=== PATIENT | female | born 1940 | race Caucasian/White ===

== ENCOUNTER 2023-08-08 14:17 | Inpatient (IN) | payer MEDICARE, SELFPAY ==
[2023-08-08] VITALS (9 sets, daily range): BP systolic 140–188; BP diastolic 83–106; PULSE 70–96; RESP 16–26; TEMP 36.5–37; O2SAT 94–97; BMI 21.2
--- NOTE | 2023-08-08 14:23 | ECG_ITS ---
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 Measurements Intervals [place] Rate: 70 P: 0 MS: 0 QRS: -74 QRSD: 167 T: 111 QT: 418 QTc: 452 Interpretive Statements ELECTRONIC VENTRICULAR PACEMAKER No previous ECG available for comparison Electronically Signed On 08-08-2023 15:50:36 CDT by Pedro Simpson M.D. [email or web address] infantsLetsVenturej.[email or web address].Atonarp/store/NU/[id number] f
--- NOTE | 2023-08-08 14:31 | XRR_ITS ---
PROCEDURE INFORMATION: Exam: XR Chest Exam date and time: 08/08/2023 2:48 PM Age: 82 years old Clinical indication: Angina pectoris; Patient HX: Chest pain radiating to lt arm; HX pacemaker 2017 TECHNIQUE: Imaging protocol: Radiologic exam of the chest. Views: 1 view. COMPARISON: No relevant prior studies available. FINDINGS: Tubes, catheters and devices: Dual lead cardiac pacemaker with left chest generator. Lungs: Bilateral lower lung atelectasis. Pleural spaces: [id number] right and suspected small left pleural effusions. No pneumothorax. Heart/Mediastinum: Widened cardiac silhouette with consolidative masslike opacity at the right medial lower lung zone obscuring the right heart border. Vasculature: Aortic arch atherosclerotic calcification. Bones/joints: Chronic fracture deformities of multiple bilateral ribs. Other findings: Splaying of the zee. XR/XR chest 1V portable [id number] IMPRESSION: 1. Widened cardiac silhouette with consolidative masslike opacity at the right medial lower lung zone obscuring the right heart border. Recommend contrast-enhanced chest CT. 2. Splaying of the zee may be on the basis of lymphadenopathy, mass, or left atrial enlargement. 3. [id number] right and suspected small left pleural effusions.
[2023-08-08] MEDS: aspirin 81 mg Chew Tablet 324 MG PO (14:35)
--- NOTE | 2023-08-08 14:37 | ED_ITS ---
HPI - Chest Pain 2 General: Chief Complaint: Chest Pain Stated Complaint: CHEST PAIN Time Seen by Provider: 08/08/23 14:19 Source: patient Mode of arrival: EMS History of Present Illness: 82-year-old female presents emergency ro om via EMS complaining of chest pain resolved after 2 sublingual nitro. Began around 7:00 this morning intermittently worsened after she went into the kitchen radiated into her left shoulder and arm down past her elbow some mild shortness of breath associated with it. She has a history of atrial fibrillation and congestive heart failure no recent medication changes no known history of coronary disease she does have a pacemaker. She is on Eliquis and metoprolol. No recent fever sweats or chills no persistent shortness of breath or productive cough no dysuria urgency or frequency she has chronic diarrhea related to her Crohn's her bowel pattern is generally unchanged. complaint: chest pain Onset (ago): hour(s) Timing of current episode: episodic Onset: during rest Pain location: left chest Pain radiation: left arm and left shoulder Severity: moderate Quality: tightness and aching Relieving factors: nitroglycerin Exacerbating factors: nothing Associated symptoms: Deny abdominal pain, dyspnea or fever(s) Review of Systems 2 Const: Denies: fever(s) or chills Card: Denies: chest pain Resp: Denies: dyspnea GI: Denies: abdominal pain : Denies: dysuria, urinary frequency or urinary urgency Musc: Denies: neck pain or back pain Skin/Breast: Denies: rash PFSH ED 2 PFSH: Medical History History of chronic kidney disease History of hyperlipidemia History of hypertension History of atrial fibrillation Surgical History History of hysterectomy Family History Brother Brain tumor Mother Brain aneurysm Father Lung cancer Social History Smoking and tobacco/nicotine status: never used tobacco/nicotine Alcohol intake: never Substance/Drug Use: never Physical Exam 2 Const: GENERAL APPEARANCE: cooperative and comfortable O RIENTATION/CONSCIOUSNESS: Yes awake, Yes oriented to person, Yes oriented to place and Yes oriented to time HENMT: COMMON NORMALS: normocephalic, atraumatic and hearing grossly normal bilaterally HEAD & SCALP: normocephalic and atraumatic Resp: COMMON NORMALS: normal respiratory effort, No retractions, No use of accessory muscles and clear to auscultation bilaterally AUSCULTATION: clear to auscultation bilaterally Cardio: COMMON NORMALS: regular rate and No murmurs present (Cardio) RATE: regular rate RHYTHM: abnormal rhythm irregularly irregular GI: COMMON NORMALS: Soft to palpation and No hepatosplenomegaly present A USCULTATION: Yes normoactive bowel sounds PALPATION: Yes Soft to palpation, No Tenderness to palpation present (GI), No Guarding due to palpation present (GI) and Yes No hepatosplenomegaly present Extremity: GENERAL: Yes edema (2+) Neuro: SENSORIUM/ORIENTATION: Yes oriented to person, Yes oriented to place and Yes oriented to time Skin: COMMON NORMALS: no rashes or lesions noted GENERAL SKIN EXAM: no rashes or lesions noted Course 2 Vital Signs: Vital signs: Vital Signs Temperature 97.7 F 08/14/23 11:51 Pulse Rate 70 08/14/23 11:51 Respiratory Rate 18 08/14/23 11:51 Blood Pressure 103/50 08/14/23 11:51 Pulse Oximetry 92 08/14/23 11:51 Oxygen Delivery Me thod Room Air 08/14/23 11:37 MDM - Chest Pain Medical Decision Making Chest discomfort relieved by nitro. Has history of chronic kidney disease. She is also noticed some swelling recently in her legs. Will admit for further evaluation of chest discomfort and overall cardiac status fluid retention. Initial EKG showed T wave inversion with ST depression. Patient started on a heparin drip. Will need further evaluation discussed with storeperson. We have also given IV Lasix. Patient has a known history of atrial fibrillation and is already on Eliquis. Hold Eliquis while on nitro drip discussed with hospitalist orders written Medical Records I reviewed the patient's medical records. Lab Data I reviewed the patient's lab results. 08/14/23 03:34 08/14/23 03:34 Radiology Impressions Chest CTA 08/08/23 15:52 IMPRESSION: 1. Negative for pulmonary embolus. 2. Large right and small to moderate left pleural effusions. 3. Cardiomegaly. 4. Coronary artery atherosclerotic calcifications. 5. Anasarca. 6. Reflux of contrast in the intrahepatic veins suggestive of congestive heart failure. 7. Bilateral dependent atelectasis versus infiltrate. 8. Midthoracic spine vertebroplasty changes. 9. Left kidney hyperdense cyst. 10. Left kidney perinephric edema likely reflecting renal insufficiency. 11. Left-sided pacemaker. COMMENTS: Consistent with the [employer]'s Incidental Findings Committee white paper (J Am Nahum Radiol 2018): Any incidental renal lesion less than 1 cm or classified as too small to characterize, or any incidental cystic renal lesion characterized as simple-appearing, is likely benign. No follow-up imaging is recommended for these lesions per consensus recommendations based on imaging criteria. Laboratory Results WBC 10.92 10^3/uL (3.29-11.43) 08/08/23 14:27 RBC 4.85 10^6/uL (3.85-5.65) 08/08/23 14:27 Hgb 14.60 g/dL (11.27-16.99) 08/08/23 14:27 Hct 44.8 % (36-47) 08/08/23 14:27 MCV 92.4 fl (85-98) 08/08/23 14:27 MCH 30.1 pg (27-33) 08/08/23 14:27 MCHC 32.6 g/dL (30-55) 08/08/23 14:27 RDW 14.3 % (12.1-15.1) 08/08/23 14:27 Plt Count 183 10^3/cmm (157-399) 08/08/23 14:27 MPV 11.3 fL (7.4-10.4) H 08/08/23 14:27 Neut % (Auto) 75.6 % 08/08/23 14:27 Lymph % (Auto) 16.3 % 08/08/23 14:27 Rush % (Auto) 6.9 % 08/08/23 14:27 Eos % (Auto) 0.3 % 08/08/23 14:27 Baso % (Auto) 0.5 % 08/08/23 14:27 Neut # (Auto) 8.27 10^3/uL (1.8-7.7) H 08/08/23 14:27 Lymph # (Auto) 1.8 10^3/uL (0.8-4.8) 08/08/23 14:27 Rush # (Auto) 0.8 10^3/uL (0.2-0.9) 08/08/23 14:27 Eos # (Auto) 0.0 10^3/uL (0.0-0.8) 08/08/23 14:27 Baso # (Auto) 0.1 10^3/uL (0.0-0.1) 08/08/23 14:27 Nucleated RBC % (auto) 0 % 08/08/23 14:27 Nucleated RBCs # 0.0 /100WBC 08/08/23 14:27 ESR 17 mm/hr (0-15) H 08/08/23 14:27 Sodium 141 mmol/L (136-145) 08/08/23 15:07 Potassium 3.7 mmol/L (3.5-5.1) 08/08/23 15:07 Chloride 101 mmol/L (98-107) 08/08/23 15:07 Carbon Dioxide 30 mmol/L (22-29) H 08/08/23 15:07 Anion Gap 13.7 (5-19) 08/08/23 15:07 BUN 19 mg/dL (8-23) 08/08/23 15:07 Creatinine 0.8 mg/dL (0.5-0.9) 08/08/23 15:07 GFR Calculation Not Reportable 08/08/23 15:07 Glucose 121 mg/dL (65-115) H 08/08/23 15:07 Estimat Average Glucose 117 08/08/23 14:27 Hemoglobin A1c 5.7 % (4.0-6.0) 08/08/23 14:27 Calculated Osmolality 296 mOsm/kg (285-295) H 08/08/23 15:07 Calcium 9.4 mg/dL (8.5-10.5) 08/08/23 15:07 Magnesium 2.0 mg/dL (1.7-2.3) 08/08/23 17:08 Total Bilirubin 0.6 mg/dL (0.15-1.2) 08/08/23 15:07 AST 27 U/L (0-32) 08/08/23 15:07 ALT 22 U/L (0-33) 08/08/23 15:07 Alkaline Phosphatase 100 U/L (35-105) 08/08/23 15:07 Troponin T Baseline 17 ng/L (0-10) H 08/08/23 15:07 Troponin T 120 Minute 16.76 ng/L (0-10) H 08/08/23 17:08 Delta Troponin T -0.24 ABS# (0-10) L 08/08/23 17:08 C-Reactive Protein 3.0 mg/L (0.0-4.9) 08/08/23 15:07 NT-Pro-B Natriuret Pep 4140 pg/mL (0-450) H 08/08/23 15:07 Total Protein 6.4 g/dL (6.6-8.7) L 08/08/23 15:07 Albumin 4.1 g/dL (3.5-5.2) 08/08/23 15:07 Globulin 2.3 g/dL (1.3-4.6) 08/08/23 15:07 Procalcitonin 0.04 ng/mL (0-0.5) 08/08/23 15:07 Digoxin 1.6 ng/mL (0.6-1.2) H 08/08/23 15:07 All radiology interpretation(s) finalized by discharge Discharge Plan Discharge Patient Disposition: Admitted As Inpatient Admit Provider: Bigg Benítez Clinical Impression: Angina at rest, Benign hypertension, Chronic atrial fibrillation, Systolic congestive heart failure Condition: Stable Discharge Diet: Cardiac Discharge Activity: Resume usual activity Coding Level of Care Code ED [employer] Systems Superintendent for Samuel Rivera
[2023-08-08 14:43] LABS: Basophils # 0.1 10^3/uL (0.0-0.1); Basophils % 0.5 %; Eosinophils % 0.3 %; Hematocrit 44.8 % (36-47); Lymphocytes # 1.8 10^3/uL (0.8-4.8); Lymphocytes % 16.3 %; Mean Corpuscular HGB Conc 32.6 g/dL (30-55); Mean Corpuscular Hemoglobin 30.1 pg (27-33); Mean Corpuscular Volume 92.4 fl (85-98); Mean Platelet Volume 11.3 fL (7.4-10.4); Monocytes # 0.8 10^3/uL (0.2-0.9); Monocytes % 6.9 %; Neutrophils # 8.27 10^3/uL (1.8-7.7); Neutrophils % 75.6 %; Nucleated Red Blood Cells % 0 %; Platelet Count 183 10^3/cmm (157-399); Red Blood Count 4.85 10^6/uL (3.85-5.65); Red Cell Distribution Width 14.3 % (12.1-15.1); White Blood Count 10.92 10^3/uL (3.29-11.43)
--- NOTE | 2023-08-08 14:58 | PC.PHAR ---
PT AND PTS SON VERIFIED PTS MEDICATIONS AND BROUGHT IN MED BOTTLES-PTS SON STATES THE PT TAKES HYDRALAZINE 25MG BID PRN SBP OVER 160 RX FILLED 25MG BID-PTS SON STATES THE PT STILL TAKES PRAMIPEXOLE 0.5MG HS RX BOTTLE DATED 12/10/22 ONE TAB IN THE AM AND TWO TABS IN THE PM-PTS SON STATES THE PT NEEDS NEW RX FOR NITRO-PTS SON STATES THE PT HAS A ONE TIME DOSE OF ASPIRIN 81MG TOOK 3 TABS A ONE TIME DOSE TODAY-PTS SON STATES THE PT TAKES TRAZODONE 100MG HS RX FILLED FOR PRN-
[2023-08-08 15:39] LABS: Alanine Aminotransferase 22 U/L (0-33); Albumin Level 4.1 g/dL (3.5-5.2); Alkaline Phosphatase 100 U/L (35-105); Aspartate Amino Transferase 27 U/L (0-32); Blood Urea Nitrogen 19 mg/dL (8-23); Calcium 9.4 mg/dL (8.5-10.5); Carbon Dioxide 30 mmol/L (22-29); Chloride 101 mmol/L (98-107); Creatinine Clr Calc Pharmacy 44.7594; Globulin 2.3 g/dL (1.3-4.6); Glucose 121 mg/dL (65-115); Osmolality Calculated 296 mOsm/kg (285-295); Sodium 141 mmol/L (136-145); Total Bilirubin 0.6 mg/dL (0.15-1.2); Total Protein 6.4 g/dL (6.6-8.7)
[2023-08-08 15:41] LABS: Anion Gap 13.7 (5-19); Digoxin 1.6 ng/mL (0.6-1.2); Potassium 3.7 mmol/L (3.5-5.1)
[2023-08-08 15:42] LABS: Troponin(5th) Baseline 17 ng/L (0-10)
--- NOTE | 2023-08-08 15:52 | CTR_ITS ---
PROCEDURE INFORMATION: Exam: CTA Chest With Contrast Exam date and time: 08/08/2023 4:06 PM Age: 82 years old Clinical indication: Pain; Dyspnea; Chest pressure; Additional info: Chest pain and dyspnea TECHNIQUE: Imaging protocol: Computed tomographic angiography of the chest with contrast. Exam focused on the arteries. 3D rendering (Not supervised by radiologist): MIP and/or 3D reconstructed images were created by the technologist. Radiation optimization: All CT scans at this facility use at least one of these dose optimization techniques: automated exposure control; mA and/or kV adjustment per patient size (includes targeted exams where dose is matched to clinical indication); or iterative reconstruction. Contrast material: OMNI 350; Contrast volume: 70 ml; Contrast route: INTRAVENOUS (IV); COMPARISON: CR (CHEST, ) 08/08/2023 2:48 PM RADIATION DOSE METRICS: Total DLP (mGy-cm): 198.13 FINDINGS: Tubes, catheters and devices: Left-sided pacemaker. Pulmonary arteries: Normal. No pulmonary emboli. Aorta: Unremarkable. No aortic aneurysm. No aortic dissection. Veins: Reflux of contrast in the intrahepatic veins suggestive of congestive heart failure. Lungs: Bilateral dependent atelectasis versus infiltrate. Pleural spaces: Large right and small to moderate left pleural effusions. Heart: Cardiomegaly. Coronary arteries: Coronary artery atherosclerotic calcifications. Lymph nodes: Unremarkable. No enlarged lymph nodes. Kidneys and ureters: Left kidney hyperdense cyst. Left kidney perinephric edema likely reflecting renal insufficiency. Bones/joints: Midthoracic spine vertebroplasty changes. Soft tissues: Anasarca. CT/CT angio chest PE protcl [id number] IMPRESSION: 1. Negative for pulmonary embolus. 2. Large right and small to moderate left pleural effusions. 3. Cardiomegaly. 4. Coronary artery atherosclerotic calcifications. 5. Anasarca. 6. Reflux of contrast in the intrahepatic veins suggestive of congestive heart failure. 7. Bilateral dependent atelectasis versus infiltrate. 8. Midthoracic spine vertebroplasty changes. 9. Left kidney hyperdense cyst. 10. Left kidney perinephric edema likely reflecting renal insufficiency. 11. Left-sided pacemaker. COMMENTS: Consistent with the [place]'s Incidental Findings Committee white paper (J Am Nahum Radiol 2018): Any incidental renal lesion less than 1 cm or classified as too small to characterize, or any incidental cystic renal lesion characterized as simple-appearing, is likely benign. No follow-up imaging is recommended for these lesions per consensus recommendations based on imaging criteria.
[2023-08-08] MEDS: iohexol 350 mg/mL 500 mL Btl (per mL) IV (16:10)
[2023-08-08] MEDS: hyDRALAzine 20 mg/mL INJ 1 mL 10 MG IVP (16:52)
[2023-08-08] MEDS: FUROsemide 10 mg/mL SDV 4mL 40 MG IVP (16:53)
--- NOTE | 2023-08-08 17:16 | ECG_ITS ---
[facility] Test Date: 2023-08-08 Pat Name: Talon Groves Department: Room: Gender: Female Panel Monitor: : 1940 Requested By: Sunil Arzate Order Number: [id number] Roshni MD: Pedro Simpson M.D. Measurements Intervals [place] Rate: 77 P: 0 ND: 0 QRS: 88 QRSD: 98 T: -76 QT: 379 QTc: 430 Interpretive Statements UNCERTAIN IRREGULAR RHYTHM ELECTRONIC VENTRICULAR PACEMAKER -- CONTOUR ANALYSIS BASED ON INTRINSIC RHYTHM ST DEVIATION AND MODERATE T-WAVE ABNORMALITY, CONSIDER ANTEROLATERAL ISCHEMIA [-0.1+ mV T-WAVE IN V3-V6] ST DEVIATION AND MODERATE T-WAVE ABNORMALITY, CONSIDER INFERIOR ISCHEMIA [-0.1+ mV T-WAVE IN II/aVF] Compared to ECG 08/08/2023 14:23:01 T-wave abnormality now present Possible ischemia now present Electronically Signed On 08-09-2023 23:59:40 CDT by Pedro Simpson M.D. [email or web address]/[id number]
--- NOTE | 2023-08-08 17:32 | PM.HP ---
Providers/Chief Complaint Chief Complaint: CHEST PAIN History of Present Illness Talon Groves is a 82 year old female with a past medical history of atrial fibrillation, CKD, hypertension, hyperlipidemia, hypothyroidism, who presents to [facility] due to complaints of chest pain and shortness of breath. Currently patient is alert oriented x 3, following all commands, on room air, currently chest pain-free. Patient tells me that for the last few weeks, she has been feeling increasingly short of breath, increasingly short of breath with exertion, no lower extremity edema as she wears compression stockings, she is her kidney doctor last saw her in April she has chronic kidney disease he told her that her kidney function was back to normal and she does not need to follow-up with the for that she used to swell in both her lower extremities, she tells me today she started to develop severe substernal chest pain like someone sitting on her chest the pain radiated down her left arm, with associated shortness of breath she never had chest pain before, no prior cardiovascular history no family history of CAD, she is on aspirin, and Eliquis at home, Review of Systems Const: Denies: fever(s) or chills Card: Reports: chest pain Resp: Reports: dyspnea GI: Denies: abdominal pain : Denies: flank pain Skin/Breast: Denies: rash Neuro: Denies: headache(s) Endo: Denies: polyuria Medications/Allergies Home Medications Medication Instructions Recorded Confirmed Last Taken Type apixaban 2.5 mg tablet (Eliquis) 2.5 mg PO BID 08/08/23 08/08/23 08/08/23 History aspirin 81 mg tablet,delayed 243 mg PO .ONE TIME DOSE 08/08/23 08/08/23 08/08/23 History release atorvastatin 20 mg tablet 20 mg PO BEDTIME 08/08/23 08/08/23 08/07/23 History digoxin 125 mcg (0.125 mg) tablet 125 mcg PO QAM 08/08/23 08/08/23 08/08/23 History furosemide 20 mg tablet 20 mg PO QAM 08/08/23 08/08/23 08/08/23 History hydralazine 25 mg tablet 25 mg PO BID PRN for sbp over 160 08/08/23 08/08/23 08/08/23 History levothyroxine 75 mcg tablet 75 mcg PO QAM 08/08/23 08/08/23 08/08/23 History memantine 10 mg tablet 10 mg PO BID 08/08/23 08/08/23 08/08/23 History metoprolol succinate 25 mg 25 mg PO BID 08/08/23 08/08/23 08/08/23 History tablet,extended release 24 hr nitroglycerin 0.4 mg sublingual 0.4 mg sublingual Q5M PRN Chest 08/08/23 08/08/23 Unknown History tablet (Nitrostat) Pain pantoprazole 40 mg tablet,delayed 40 mg PO QAM 08/08/23 08/08/23 08/08/23 History release potassium chloride 20 mEq See Rx Instructions .Route .COMPLEX 08/08/23 08/08/23 08/08/23 History tablet,extended release pramipexole 0.5 mg tablet 0.5 mg PO BEDTIME 08/08/23 08/08/23 08/07/23 History trazodone 100 mg tablet 100 mg PO BEDTIME 08/08/23 08/08/23 08/07/23 History valsartan 160 mg tablet 160 mg PO QAM 08/08/23 08/08/23 08/08/23 History Allergies Allergy/AdvReac Type Severity Reaction Status Date / Time clonidine Allergy DROPS BP Verified 08/08/23 14:57 TO MUCH dexamethasone Allergy ADR-Vomitin Verified 08/08/23 14:57 g NSAIDS (Non-Steroidal Allergy Unknown Verified 08/08/23 14:57 Anti-Inflamma oxycodone Allergy Unknown Verified 08/08/23 14:57 prednisone Allergy ADR-Vomitin Verified 08/08/23 14:57 g PFSH Acute PFSH: Medical History (Updated 08/08/23 @ 17:42 by Bigg Benítez MD) History of chronic kidney disease History of hyperlipidemia History of hypertension History of atrial fibrillation Surgical History (Updated 08/08/23 @ 17:35 by Bigg Benítez MD) History of hysterectomy Family History (Updated 08/08/23 @ 17:38 by Bigg Benítez MD) Brother Brain tumor Mother Brain aneurysm Father Lung cancer Social History (Updated 08/08/23 @ 17:41 by Bigg Benítez MD) Smoking and tobacco/nicotine status: never used tobacco/nicotine Alcohol intake: never Substance/Drug Use: never Vitals/I&O/Wt Last Vital Signs Temp 98.6 F 08/08/23 14:25 Pulse 96 08/08/23 16:30 Resp 22 H 08/08/23 16:30 BP 188/106 08/08/23 16:30 Pulse Ox 97 08/08/23 16:30 O2 Del Method Room Air 08/08/23 15:53 Weight last 48 hrs Weight 54.431 kg Physical Exam Const: COMMON NORMALS: no acute distress and patient oriented x3 HENMT: COMMON NORMALS: normocephalic HEAD & SCALP: normocephalic Eye: COMMON NORMALS: Equal, round and reactive pupils present and EOMs intact bilaterally Neck/C-Spine: COMMON NORMALS: no JVD Lymph: LYMPHATIC: no lymphadenopathy noted Resp: COMMON NORMALS: normal respiratory effort, No retractions, No use of accessory muscles and clear to auscultation bilaterally AUSCULTATION: clear to auscultation bilaterally Cardio: COMMON NORMALS: no JVD, regular rate, regular rhythm, S1 normal heart sound present and S2 normal heart sound present RATE: regular rate RHYTHM: regular rhythm HEART SOUNDS: S1 normal heart sound present and S2 normal heart sound present GI: COMMON NORMALS: Normal to inspection, nondistended, normoactive bowel sounds present, Soft to palpation and non-tender Extremity: COMMON NORMALS: no calf tenderness and no pedal edema Neuro: COMMON NORMALS: patient oriented x3, CN's II-XII intact bilaterally and moves all extremities Psych: COMMON NORMALS: mental status grossly normal Data 08/08/23 14:27 08/08/23 15:07 A&P Assessment and plan (1) Chest pain: (2) CHF exacerbation: (3) Bilateral pleural effusion: Plan Chest pain ? Sounds cardiac in nature, ? First troponin 17, 120-minute troponin 16.76 ? Second EKG shows T wave inversions in inferior leads, with ST depressions in the lateral leads ? Currently chest pain-free, ? Plan, ? Aspirin, statin, beta-susanne, ? Heparin drip, ? Nitro as needed for chest pain, ? Cardiac echo, ? TSH, mag, ? Will consider stress testing on Thursday versus angiogram based on clinical progress ? Full code ? Heparin drip for DVT prophylaxis Systolic CHF ? CT angiogram the chest showing bilateral pleural effusions ? Lasix 40 IV twice daily ? Monitor creatinine monitor urine output monitor potassium ? Cardiac echo Atrial fibrillation ? Heparin drip, ? Digoxin, ? Metoprolol Hypertension, ? Continue metoprolol, ? Continue losartan Attestations Medical Necessity Statement*: Patient requires hospitalization, inpatient, greater than 2 midnights, for chest pain, fluid overload, systolic CHF exacerbation, bilateral pleural effusions Diagnoses Chest pain R07.9 CHF exacerbation I50.9 Bilateral pleural effusion J90
[2023-08-08 17:37] LABS: Troponin 5 2HR 16.76 ng/L (0-10); Troponin 5 2HR Delta -0.24 ABS# (0-10)
--- NOTE | 2023-08-08 17:49 | USCV_ITS ---
aTlon Groves Age: 82 Gender: F : 1940 Exam Date: 08/08/2023 18:30 Ordering Phys: Bigg Benítez MD Technologist: Bao Alvarez Exam Location: [facility] Indication: chest pain BP: 94 / 61 HR: 93 Rhythm: Sinus Technical Quality: Adequate MEASUREMENTS (Male / Female) Normal Values 2D ECHO LV Ejection Fraction MOD 2C 71.6 % LV Ejection Fraction 2C AL 71.2 % LA Diameter 5.0 cm RA Systolic Volume 4C AL 87.4 ml RA Systolic Volume 4C MOD 87.7 ml Aorta at Sinotubular Diameter 2.6 cm IVC Diameter 2.7 cm M-MODE LA Ao Ratio MM 1.8 AV Cusp Separation MM 1.8 cm DOPPLER AV Peak Velocity 110.0 cm/s LVOT Peak Velocity 89.0 cm/s MV Peak Velocity 109.0 cm/s MV Area PHT 6.2 cm squared Mitral E to A Ratio 2.8 TV Peak Velocity 324.3 cm/s TR Peak Velocity 352.0 cm/s TR Peak Gradient 49.6 mmHg TR Mean Velocity 246.0 cm/s TR Mean Gradient 27.2 mmHg TR Velocity Time Integral 89.2 cm PV Peak Velocity 79.7 cm/s RV Ejection Time 0.3 s FINDINGS Left Ventricle Left ventricle is normal in size. LV systolic function is normal with EF of 60 to 65%. No regional wall motion abnormalities. Diastolic function is indeterminate because of atrial fibrillation Right Ventricle Normal in size and function Right Atrium Dilated. Pacemaker lead is seen. Possible echogenic structure is seen attached to the lead. Left Atrium Dilated Mitral Valve Structurally normal mitral valve. Mild mitral regurgitation. Aortic Valve Structurally normal aortic valve. No significant stenosis or regurgitation. Tricuspid Valve Mild tricuspid regurgitation. RVSP is 45-50 mmHg. This is consistent with moderate pulmonary hypertension. Pulmonic Valve Mild pulmonic regurgitation. Pericardium Normal Aorta Normal in size IVC Dilated CONCLUSIONS LV systolic function normal with EF of 60 to 65%. Biatrial dilation Pacemaker lead is seen in the right atrium. Possible echogenic structure is attached to the lead. Mild mitral regurgitation Mild tricuspid regurgitation Moderate pulmonary hypertension Mild pulmonic regurgitation IVC is dilated No comparison studies are available. Pedro Simpson MD (Electronically Signed) Final Date: 09 August 2023 11:19 S
[2023-08-08 17:58] LABS: NT Pro B Type Natriuretic Pept 4140 pg/mL (0-450); Procalcitonin 0.04 ng/mL (0-0.5)
[2023-08-08 18:02] LABS: Erythrocyte Sedimentation Rate 17 mm/hr (0-15)
--- NOTE | 2023-08-08 20:31 | ECG_ITS ---
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 Measurements Intervals [place] Rate: 74 P: 0 LA: 0 QRS: -9 QRSD: 101 T: 135 QT: 399 QTc: 444 Interpretive Statements UNCERTAIN IRREGULAR RHYTHM ELECTRONIC VENTRICULAR PACEMAKER ST DEVIATION AND MODERATE T-WAVE ABNORMALITY, CONSIDER LATERAL ISCHEMIA [-0.1+ mV T-WAVE IN I/aVL/V5/V6] Compared to ECG 08/08/2023 17:16:54 No significant changes Electronically Signed On 08-09-2023 23:58:59 CDT by Pedro Simpson M.D. [id number]
[2023-08-08 21:00] LABS: Estmated Average Glucose 117; Hemoglobin A1C 5.7 % (4.0-6.0)
[2023-08-08 21:02] LABS: Chol HDL Ratio 2.53 mg/dL (0.0-4.40); Cholesterol 101 mg/dL (0-200); HDL Cholesterol 40 mg/dL (60-100); LDL Cholesterol Calculated 44 mg/dL (50-129); Thyroid Stimulating Hormone 0.96 uIU/mL (0.27-4.20); Triglycerides 84 mg/dL (0-150)
[2023-08-08] MEDS: pramipexole 0.25 mg Tablet 0.5 MG PO (21:42)
[2023-08-08] MEDS: acetaminophen 325 mg Tablet 650 MG PO (21:42)
[2023-08-08] MEDS: atorvastatin 40 mg Tablet 20 MG PO (21:43)
[2023-08-08] MEDS: metoprolol succinate ER (24 HR) 25 mg Tablet PO (21:43)
[2023-08-08] MEDS: trazodone 100 mg Tablet PO (21:44)
[2023-08-08] MEDS: pneumococcal (23 valent) SDV 0.5 mL IM (21:45)
[2023-08-08] MEDS: flu vacc pf 2023-24 (6 mos+) 60 MCG IM (21:52)
[2023-08-08] MEDS: heparin drip 25,000 UNIT/500 ML PREMIX 16 UNIT IV (22:03)
[2023-08-08] MEDS: heparin 5,000 unit/mL INJ 1 mL IV (22:04)
[2023-08-08 22:13] LABS: Protein Urine Neg (Negative); Urine Appearance Clear (CLEAR); Urine Color Colorless (Yellow); pH Urine 8 (5-7)
[2023-08-08 22:14] LABS: Add Urine Culture? Yes; Add Urine Microscopic? YES; Bacteria Urine 3+ /hpf; Bilirubin Urine Neg (Negative); Blood Urine 2+ (Negative); Glucose Urine UA Norm (Normal); Ketones Urine Negative (Negative); Leukocyte Esterase Urine Trace (Negative); Mucus Urine TRACE /hpf; Nitrate Urine Negative (Negative); RBC Urine 0-4 /hpf (0-2); Squamous Epithelial Cell Urine 0-4 /hpf (0-5); Urobilinogen Urine Neg (Negative)
[2023-08-08 22:22] LABS: Troponin 5 6HR 19.78 ng/L (0-10); Troponin 5 6HR Delta 2.78 ng/L (0-12)
[2023-08-09] VITALS (68 sets, daily range): BP systolic 78–168; BP diastolic 43–94; PULSE 70–71; RESP 3–27; TEMP 36.4–36.9; O2SAT 89–97
[2023-08-09] MEDS: losartan 50 mg Tablet PO (05:40)
[2023-08-09] MEDS: levothyroxine 75 mcg Tablet PO (05:40)
[2023-08-09] MEDS: digoxin 125 mcg Tablet PO (05:40)
[2023-08-09] MEDS: pantoprazole DR 40 mg Tablet PO (05:40)
[2023-08-09] MEDS: FUROsemide 10 mg/mL SDV 4mL 40 MG IVP ×2 (05:41→17:18)
[2023-08-09 05:49] LABS: Basophils # 0.1 10^3/uL (0.0-0.1); Basophils % 0.5 %; Eosinophils # 0.1 10^3/uL (0.0-0.8); Eosinophils % 0.6 %; Hematocrit 50.7 % (36-47); Lymphocytes # 2.4 10^3/uL (0.8-4.8); Lymphocytes % 21.8 %; Mean Corpuscular HGB Conc 32.5 g/dL (30-55); Mean Corpuscular Hemoglobin 29.7 pg (27-33); Mean Corpuscular Volume 91.2 fl (85-98); Mean Platelet Volume 10.8 fL (7.4-10.4); Monocytes # 0.7 10^3/uL (0.2-0.9); Monocytes % 6.5 %; Neutrophils # 7.79 10^3/uL (1.8-7.7); Neutrophils % 70.3 %; Nucleated Red Blood Cells % 0 %; Platelet Count 181 10^3/cmm (157-399); Red Blood Count 5.56 10^6/uL (3.85-5.65); Red Cell Distribution Width 14.2 % (12.1-15.1); White Blood Count 11.07 10^3/uL (3.29-11.43)
[2023-08-09 06:13] LABS: Alanine Aminotransferase 24 U/L (0-33); Albumin Level 4.3 g/dL (3.5-5.2); Alkaline Phosphatase 104 U/L (35-105); Anion Gap 16.6 (5-19); Aspartate Amino Transferase 24 U/L (0-32); Blood Urea Nitrogen 16 mg/dL (8-23); Calcium 9.8 mg/dL (8.5-10.5); Carbon Dioxide 32 mmol/L (22-29); Chloride 97 mmol/L (98-107); Globulin 3.1 g/dL (1.3-4.6); Glucose 90 mg/dL (65-115); Magnesium 1.9 mg/dL (1.7-2.3); Osmolality Calculated 295 mOsm/kg (285-295); Phosphorus 3.5 mg/dL (2.5-4.5); Potassium 3.6 mmol/L (3.5-5.1); Sodium 142 mmol/L (136-145); Total Bilirubin 1.1 mg/dL (0.15-1.2); Total Protein 7.4 g/dL (6.6-8.7)
[2023-08-09 06:22] LABS: Partial Thromboplastin Time 196.2 SECONDS (23.9-36.7)
--- NOTE | 2023-08-09 08:26 | ECG_ITS ---
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 Interpretive Statements NAME OF STUDY: LEXISCAN SESTAMIBI STRESS TEST INDICATION: [Chest Pain, ] Procedure: At the baseline, the blood pressure was 134/89 mmHg with a heart rate of 70 bpm. The electrocardiogram showed ventricular paced rhythm The Lexiscan was infused over a period of 20 seconds. A total of 0.4 mg of Lexiscan was infused. The stress phase was continued for a total of 5 minutes. Heart rate was at the end of stress phase was 84 bpm and a blood pressure of 103/64 mmHg. The EKG at the peak infusion revealed ventricular paced rhythm with no significant ST-T wave changes. Sestamibi was injected 20 seconds after the Lexiscan infusion. Blood pressure at the end of recovery phase was 103/59 mmHg with a heart rate of 81 bpm. Conclusion: 1. Normal EKG response to Lexiscan infusion 2. No Lexiscan induced chest pain or cardiac arrhythmia. 3. Normal blood pressure and heart rate response. 4. Sestamibi/sestamibi perfusion scan pending; see separate report. Electronically Signed On 08-17-2023 12:20:10 CDT by Pedro Simpson M.D. [id number]
[2023-08-09] MEDS: metoprolol succinate ER (24 HR) 25 mg Tablet PO ×2 (08:41→17:19)
[2023-08-09] MEDS: aspirin 81 mg EC Tablet PO (08:41)
[2023-08-09] MEDS: memantine 5 mg tablet 10 MG PO ×2 (08:41→17:18)
[2023-08-09] MEDS: cefTRIAXone 1,000 MG in sodium chloride 0.9% (plus) 50 ML 100 MG IV (10:27)
--- NOTE | 2023-08-09 13:04 | P.PN_ITS ---
Subjective 2 Subjective: Patient was seen this morning, she tells me that she is resting more comfortably no episodes of chest pain overnight her shortness of breath is improving Vitals/I&O/Wt Last Vital Signs Temp 97.6 F 08/09/23 11:02 Pulse 70 08/09/23 11:02 Resp 17 08/09/23 11:02 BP 122/68 08/09/23 11:02 Pulse Ox 97 08/09/23 11:02 O2 Del Method Room Air 08/09/23 11:02 08/08/23 08/09/23 08/09/23 22:59 06:59 14:59 Intake Total 233.867 / 233.867 290 / 290 Output Total 440 / 441 Balance - / -1 -206.133 / -207.133 290 / 290 Weight last 48 hrs Weight 54.25 kg Weight 54.295 kg Weight 54.204 kg Weight 54.431 kg Physical Exam 2 Const: COMMON NORMALS: no acute distress and patient oriented x3 Resp: COMMON NORMALS: normal respiratory effort, No retractions, No use of accessory muscles and clear to auscultation bilaterally AUSCULTATION: clear to auscultation bilaterally Cardio: COMMON NORMALS: regular rate, regular rhythm, S1 normal heart sound present and S2 normal heart sound present RATE: regular rate RHYTHM: r egular rhythm HEART SOUNDS: S1 normal heart sound present and S2 normal heart sound present GI: COMMON NORMALS: Normal to inspection, nondistended, normoactive bowel sounds present and non-tender Extremity: COMMON NORMALS: no pedal edema Neuro: COMMON NORMALS: patient oriented x3 Psych: COMMON NORMALS: mental status grossly normal Data 08/09/23 05:37 08/09/23 05:37 A&P Assessment and plan (1) Chest pain: (2) CHF exacerbation: (3) Bilateral pleural effusion: Plan Chest pain ? Sounds cardiac in nature, ? First troponin 17, 120-minute troponin 16.76 ? Second EKG shows T wave inversions in inferior leads, with ST depressions in the lateral leads ? Currently chest pain-free, ? Plan, ? Aspirin, statin, beta-susanne, ? Heparin drip, ? Nitro as needed for chest pain, ? Cardiac echo, ? N.p.o. midnight, for cardiac stress test tomorrow morning ? Full code ? Heparin drip for DVT prophylaxis Systolic CHF ? CT angiogram the chest showing bilateral pleural effusions ? Lasix 40 IV twice daily ? Monitor creatinine monitor urine output monitor potassium ? Cardiac echo Atrial fibrillation ? Heparin drip, ? Digoxin, ? Metoprolol Hypertension, ? Continue metoprolol, ? Continue losartan Patient requires hospitalization to chest pain, systolic CHF exacerbation requiring IV diuresis, stress test tomorrow Attestations 2 Medical Necessity Statement*: Patient requires hospitalization for chest pain, undergoing stress testing, and fluid overload requiring IV diuresis Diagnoses Chest pain R07.9 CHF exacerbation I50.9 Bilateral pleural effusion J90
[2023-08-09] MEDS: nitroglycerin 0.4 mg sublingual Tablet 0.400000000000000022 MG SUBLINGUAL (16:05)
--- NOTE | 2023-08-09 16:05 | PC.NURSE ---
Pt c/o CP rating it 6 out of 10. 1 NTG 0.4mg given SL and pain resolved in <5 mins. BP dropped significantly with the 1 NTG given. MD notified and VS were taken Q5mins until noted resolution of BP's.
--- NOTE | 2023-08-09 17:16 | ECG_ITS ---
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 Measurements Intervals [place] Rate: 70 P: 0 CA: 0 QRS: -76 QRSD: 126 T: 110 QT: 413 QTc: 446 Interpretive Statements ELECTRONIC VENTRICULAR PACEMAKER Compared to ECG 08/08/2023 22:03:29 T-wave abnormality no longer present Possible ischemia no longer present Electronically Signed On 08-09-2023 23:52:16 CDT by Pedro Simpson M.D. [id number]
[2023-08-09 17:59] LABS: Partial Thromboplastin Time 31.6 SECONDS (23.9-36.7)
[2023-08-09 18:04] LABS: Troponin(5th) Baseline 31 ng/L (0-10)
[2023-08-09 19:47] LABS: Troponin 5 2HR 27.46 ng/L (0-10)
[2023-08-09 19:48] LABS: Troponin 5 2HR Delta -3.54 ABS# (0-10)
[2023-08-09] MEDS: acetaminophen 325 mg Tablet 650 MG PO (19:52)
[2023-08-09] MEDS: trazodone 100 mg Tablet PO (20:48)
[2023-08-09] MEDS: pramipexole 0.25 mg Tablet 0.5 MG PO (20:48)
[2023-08-09] MEDS: atorvastatin 40 mg Tablet 20 MG PO (20:49)
[2023-08-10] VITALS (108 sets, daily range): BP systolic 85–152; BP diastolic 52–77; PULSE 70–84; RESP 8–30; TEMP 36.6–36.8; O2SAT 87–97
[2023-08-10 00:17] LABS: Troponin 5 6HR 34.62 ng/L (0-10); Troponin 5 6HR Delta 3.62 ng/L (0-12)
[2023-08-10 02:27] LABS: Partial Thromboplastin Time 153.2 SECONDS (23.9-36.7)
--- NOTE | 2023-08-10 02:47 | PC.NURSE ---
Spoke with regarding patients elevated PTT 153.2. Order to hold heparin gtt for 4 hours and recheck PTT. When resuming gtt decrease by 1u/kg/hr.
[2023-08-10] MEDS: levothyroxine 75 mcg Tablet PO (05:39)
[2023-08-10] MEDS: digoxin 125 mcg Tablet PO (05:39)
[2023-08-10] MEDS: pantoprazole DR 40 mg Tablet PO (05:39)
[2023-08-10] MEDS: losartan 50 mg Tablet PO (05:40)
[2023-08-10 06:55] LABS: Basophils % 0.4 %; Eosinophils # 0.1 10^3/uL (0.0-0.8); Eosinophils % 0.5 %; Hematocrit 47.7 % (36-47); Lymphocytes % 20.3 %; Mean Corpuscular HGB Conc 32.5 g/dL (30-55); Mean Corpuscular Hemoglobin 30.1 pg (27-33); Mean Corpuscular Volume 92.6 fl (85-98); Mean Platelet Volume 10.7 fL (7.4-10.4); Monocytes # 0.7 10^3/uL (0.2-0.9); Monocytes % 7.5 %; Neutrophils # 7.06 10^3/uL (1.8-7.7); Neutrophils % 71.1 %; Nucleated Red Blood Cells % 0 %; Platelet Count 164 10^3/cmm (157-399); Red Blood Count 5.15 10^6/uL (3.85-5.65); Red Cell Distribution Width 14.2 % (12.1-15.1); White Blood Count 9.93 10^3/uL (3.29-11.43)
[2023-08-10 07:11] LABS: Partial Thromboplastin Time 30.5 SECONDS (23.9-36.7)
[2023-08-10 07:18] LABS: Alanine Aminotransferase 18 U/L (0-33); Alkaline Phosphatase 96 U/L (35-105); Anion Gap 14.2 (5-19); Aspartate Amino Transferase 20 U/L (0-32); Blood Urea Nitrogen 23 mg/dL (8-23); Calcium 9.7 mg/dL (8.5-10.5); Carbon Dioxide 32 mmol/L (22-29); Chloride 95 mmol/L (98-107); Creatinine Clr Calc Pharmacy 32.9962; Globulin 3.2 g/dL (1.3-4.6); Glucose 91 mg/dL (65-115); Osmolality Calculated 289 mOsm/kg (285-295); Phosphorus 4.1 mg/dL (2.5-4.5); Potassium 3.2 mmol/L (3.5-5.1); Sodium 138 mmol/L (136-145); Total Protein 7.2 g/dL (6.6-8.7)
[2023-08-10] MEDS: regadenoson 0.4 Mg/5 ml Syringe 0.400000000000000022 MG IVP (07:19)
--- NOTE | 2023-08-10 08:00 | NMCV_ITS ---
NM kanu perf SPECT r/s* [id number] Talon Groves Age: 82 Gender: F : 1940 Exam Date: 08/10/2023 06:37 Ordering Phys: Bigg Benítez MD Technologist: ARVIND Peres Exam Location: [facility] [place] Indications: CHEST PAIN STRESS TEST [facility] IMAGE PROTOCOL Rest/Stress 1 Lexiscan Day Radiopharmaceutical Dose (mCi) Administration Site Administered by Rest: Tc-99m 10.7 IV ARVIND Vallejo Sestamibi Stress:Tc-99m 32.9 IV ARVIND Vallejo Sestamibi Rest: 10-Aug-2023 60 Discovery 630 Stress: 10-Aug-2023 30 Discovery 630 0.4mg Lexiscan. Images obtained in supine and prone position. SPECT RESULTS Technical Quality: Excellent Raw Data Analysis: Normal Image Corrections: No attenuation or motion correction applied Summed Stress Score: 0 Summed Rest Score: 6 Summed Difference Score: 0 PERFUSION FINDINGS SPECT images demonstrate homogeneous tracer distribution throughout the myocardium. FUNCTIONAL RESULTS (calculated via Gated SPECT) Stress Image LV EF (%): 81 Stress EDV (mL):59 TID: 0.58 Stress ESV (mL):11 FUNCTIONAL FINDINGS: There is normal left ventricular systolic function. IMPRESSIONS 1. Normal myocardial perfusion imaging with no evidence of ischemia 2. LV systolic function is normal Pedro Simpson MD (Electronically Signed) Final Date: 10 August 2023 10:32 S
--- NOTE | 2023-08-10 10:01 | PC.CHAP ---
Pastoral Care Encounter/Spiritual Assessment Type of Contact [] Declined spice miller hammer mill visit [] Patient/Family/Request visit [] Outpatient visit [] Follow-up visit [] Physician referral [] Code/Alert [x] Routine visit [] Staff referral [] Actively dying [x] Patient sleeping [] Family support [] [] Out of room [] Palliative care [] [] Receiving care in room [] Pre-surgical visit [] Trauma [] Long length of stay [] ICU visit [] Other: Relational/Emotional Strength [] Patient feels connected with others/family/visitors/staff [] Distress [] Loneliness/isolation [] Abandonment Spirituality of Patient [] Person of Leonor [] Attends Church of their Leonor [] Believes in Prayer [] Reads Bible or Oriental Orthodox materials [] There are Spiritual issues to be addressed 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 [x] Prayer [] Active listening [] Non-anxious presence [] Spiritual/emotional support [] Crisis/trauma care [] Spiritual counseling [] Bereavement support [] Provided bereavement packet [] Provided Bible/devotional materials [] Provided toy/stuffed animal, coloring book to patient or family member [] Provided Communion [] Anointing/[place] [] Salvation [] Completed spiritual assessment [] Other: Impact on Illness or Injury [] Angry [] Fearful [] Anxious [] Often cries [] Exhaustion [] Unable to work [] Unable to attend zoroastrianism [] Unable to walk/stand [] Unable to read [] Unable to drive [] Unable to eat/drink [] Unable to sleep [] Unable to be with family [] Patient intubated [] Other: Summary Time spent with patient
[2023-08-10] MEDS: aspirin 81 mg EC Tablet PO (10:48)
[2023-08-10] MEDS: cefTRIAXone 1,000 MG in sodium chloride 0.9% (plus) 50 ML 100 MG IV (10:49)
[2023-08-10] MEDS: memantine 5 mg tablet 10 MG PO ×2 (10:49→18:30)
[2023-08-10] MEDS: metoprolol succinate ER (24 HR) 25 mg Tablet PO (10:49)
--- NOTE | 2023-08-10 11:43 | PC.SOCIAL ---
Pg 2 IMM Explained to pt Pg 2 IMM. No questions voiced. Provided pt a copy. Initialed, dated, & timed a copy & placed in chart.
[2023-08-10] MEDS: apixaban 5 mg Tablet 2.5 MG PO ×2 (12:40→22:07)
[2023-08-10] MEDS: acetaminophen 325 mg Tablet 650 MG PO (12:44)
--- NOTE | 2023-08-10 12:51 | P.PN_ITS ---
Subjective 2 Subjective: Patient was seen this morning, she had 1 episode of chest pain yesterday afternoon, requiring nitroglycerin, since then she has not had any more chest pain, she does report intermittent shortness of breath, denies any nausea, no vomiting, no lightheadedness currently on room air, plan on today to do stress testing, speak to cardiology about stress testing, will continue to diurese she is agreeable Vitals/I&O/Wt Last Vital Signs Temp 97.8 F 08/10/23 04:00 Pulse 76 08/10/23 07:26 Resp 17 08/10/23 04:00 BP 103/59 08/10/23 07:26 Pulse Ox 92 08/09/23 23:58 O2 Del Method Room Air 08/09/23 23:58 08/09/23 08/10/23 08/10/23 22:59 06:59 14:59 Intake Total 240 / 770 151.8 / 921.8 170 / 170 Output Total 0 / 0 500 / 500 Balance 240 / 770 -348.2 / 421.8 170 / 170 Weight last 48 hrs Weight 56.245 kg Weight 54.25 kg Weight 54.295 kg Weight 54.204 kg Weight 54.431 kg Physical Exam 2 Const: COMMON NORMALS: no acute distress and patient oriented x3 Resp: COMMON NORMALS: normal respiratory effort, No retractions and No use of accessory muscles AUSCULTATION: crackles Cardio: COMMON NORMALS: regular rate, regular rhythm, S1 normal heart sound present and S2 normal heart sound present RATE: regular rate RHYTHM: r egular rhythm HEART SOUNDS: S1 normal heart sound present and S2 normal heart sound present GI: COMMON NORMALS: Normal to inspection, nondistended, normoactive bowel sounds present and non-tender Extremity: COMMON NORMALS: no pedal edema Neuro: COMMON NORMALS: patient oriented x3 Psych: COMMON NORMALS: mental status grossly normal Data 08/10/23 06:46 08/10/23 06:46 Micro: Microbiology 08/08/23 21:42 Urine Culture - Preliminary Urine,Clean Catch Gram Negative Rods Gram Negative Rods#2 08/09/23 13:39 Blood Culture - Preliminary Blood SPECIMEN COLLECTED 08/09/23 13:27 Blood Culture - Preliminary Blood SPECIMEN COLLECTED A&P Assessment and plan (1) Chest pain: (2) CHF exacerbation: (3) Bilateral pleural effusion: Plan Chest pain ? Sounds cardiac in nature, ? First troponin 17, 120-minute troponin 16.76 ? Second EKG shows T wave inversions in inferior leads, with ST depressions in the lateral leads ? Currently chest pain-free, ? Plan, ? Aspirin, statin, beta-susanne, ? Heparin drip, ? Nitro as needed for chest pain, ? Cardiac echo, CONCLUSIONS LV systolic function normal with EF of 60 to 65%. Biatrial dilation Pacemaker lead is seen in the right atrium. Possible echogenic structure is attached to the lead. Mild mitral regurgitation Mild tricuspid regurgitation Moderate pulmonary hypertension Mild pulmonic regurgitation IVC is dilated No comparison studies are available. ? N.p.o. midnight, for cardiac stress test tomorrow today ? Full code ? Heparin drip for DVT prophylaxis Echogenic structure attached to lead, will speak to cardiology Systolic CHF ? CT angiogram the chest showing bilateral pleural effusions ? Lasix 40 IV once today ? Monitor creatinine monitor urine output monitor potassium ? Cardiac echo Atrial fibrillation ? Heparin drip, ? Digoxin, ? Metoprolol Hypertension, ? Continue metoprolol, ? Continue losartan Patient requires hospitalization to chest pain, systolic CHF exacerbation requiring IV diuresis, stress test today Attestations 2 Medical Necessity Statement*: Patient requires hospitalization for shortness of breath CHF exacerbation extrusion diuresis, chest pain requiring stress testing, Diagnoses Chest pain R07.9 CHF exacerbation I50.9 Bilateral pleural effusion J90
[2023-08-10] MEDS: potassium chloride ER 20 mEq Tablet 40 MEQ PO (15:32)
[2023-08-10] MEDS: HYDROcodone-acetaminophen 10-325 mg Tablet 1 TAB PO (15:33)
[2023-08-10] MEDS: FUROsemide 10 mg/mL SDV 4mL 40 MG IVP (15:33)
[2023-08-10] MEDS: trazodone 100 mg Tablet PO (21:23)
[2023-08-10] MEDS: pramipexole 0.25 mg Tablet 0.5 MG PO (21:23)
[2023-08-10] MEDS: atorvastatin 40 mg Tablet 20 MG PO (21:23)
[2023-08-10] MEDS: metoprolol succinate ER (24 HR) 25 mg Tablet 12.5 MG PO (21:24)
[2023-08-11] VITALS (68 sets, daily range): BP systolic 93–164; BP diastolic 58–94; PULSE 70–95; RESP 12–28; TEMP 36.2–37.1; O2SAT 89–97
[2023-08-11 03:52] LABS: Basophils % 0.5 %; Eosinophils # 0.1 10^3/uL (0.0-0.8); Eosinophils % 1.5 %; Hematocrit 41.2 % (36-47); Lymphocytes # 2.8 10^3/uL (0.8-4.8); Lymphocytes % 34.4 %; Mean Corpuscular Hemoglobin 29.3 pg (27-33); Mean Corpuscular Volume 91.6 fl (85-98); Mean Platelet Volume 11.3 fL (7.4-10.4); Monocytes # 0.9 10^3/uL (0.2-0.9); Monocytes % 11.4 %; Neutrophils # 4.27 10^3/uL (1.8-7.7); Nucleated Red Blood Cells % 0 %; Platelet Count 162 10^3/cmm (157-399); Red Cell Distribution Width 14.2 % (12.1-15.1); White Blood Count 8.22 10^3/uL (3.29-11.43)
[2023-08-11 04:22] LABS: Alanine Aminotransferase 14 U/L (0-33); Albumin Level 3.5 g/dL (3.5-5.2); Alkaline Phosphatase 77 U/L (35-105); Aspartate Amino Transferase 14 U/L (0-32); Blood Urea Nitrogen 26 mg/dL (8-23); Calcium 9.5 mg/dL (8.5-10.5); Carbon Dioxide 31 mmol/L (22-29); Chloride 97 mmol/L (98-107); Creatinine Clr Calc Pharmacy 25.9256; Globulin 2.6 g/dL (1.3-4.6); Glucose 86 mg/dL (65-115); Magnesium 1.9 mg/dL (1.7-2.3); Osmolality Calculated 292 mOsm/kg (285-295); Phosphorus 4.4 mg/dL (2.5-4.5); Sodium 139 mmol/L (136-145); Total Bilirubin 0.6 mg/dL (0.15-1.2); Total Protein 6.1 g/dL (6.6-8.7)
[2023-08-11] MEDS: levothyroxine 75 mcg Tablet PO (05:52)
[2023-08-11] MEDS: digoxin 125 mcg Tablet PO (05:52)
[2023-08-11] MEDS: pantoprazole DR 40 mg Tablet PO (05:53)
[2023-08-11] MEDS: cefTRIAXone 1,000 MG in sodium chloride 0.9% (plus) 50 ML 100 MG IV (09:35)
[2023-08-11] MEDS: memantine 5 mg tablet 10 MG PO ×2 (09:37→18:09)
[2023-08-11] MEDS: metoprolol succinate ER (24 HR) 25 mg Tablet 12.5 MG PO ×2 (09:38→18:09)
[2023-08-11] MEDS: isosorbide mononitrate ER 30 mg Tablet 15 MG PO (09:38)
[2023-08-11] MEDS: aspirin 81 mg EC Tablet PO (09:38)
[2023-08-11] MEDS: HYDROcodone-acetaminophen 10-325 mg Tablet 1 TAB PO (09:47)
--- NOTE | 2023-08-11 09:57 | PC.CHAP ---
Pastoral Care Encounter/Spiritual Assessment Type of Contact [] Declined box spring maker visit [] Patient/Family/Request visit [] Outpatient visit [] Follow-up visit [] Physician referral [] Code/Alert [x] Routine visit [] Staff referral [] Actively dying [] Patient sleeping [] Family support [] [] Out of room [] Palliative care [] [] Receiving care in room [] Pre-surgical visit [] Trauma [] Long length of stay [] ICU visit [] Other: Relational/Emotional Strength [x] Patient feels connected with others/family/visitors/staff [] Distress [] Loneliness/isolation [] Abandonment Spirituality of Patient [x] Person of Leonor [] Attends Orthodox of their Leonor [x] Believes in Prayer [] Reads Bible or Evangelical materials [] There are Spiritual issues to be addressed Pets [employer]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 Interventions [x] Prayer [x] Active listening [] Non-anxious presence [x] Spiritual/emotional support [] Crisis/trauma care [] Spiritual counseling [] Bereavement support [] Provided bereavement packet [] Provided Bible/devotional materials [] Provided toy/stuffed animal, coloring book to patient or family member [] Provided Communion [] Anointing/[place] [] Salvation [x] Completed spiritual assessment [] Other: Impact on Illness or Injury [] Angry [] Fearful [] Anxious [] Often cries [] Exhaustion [] Unable to work [] Unable to attend adventism [] Unable to walk/stand [] Unable to read [] Unable to drive [] Unable to eat/drink [] Unable to sleep [] Unable to be with family [] Patient intubated [] Other: Summary Time spent with patient 5 min
[2023-08-11] MEDS: apixaban 5 mg Tablet 2.5 MG PO (10:56)
--- NOTE | 2023-08-11 16:04 | P.PN_ITS ---
Subjective 2 Subjective: Patient was seen this morning, she tells me that yesterday evening, she had a significant episode of chest pain, no chest pain tonight, her breathing has improved, was placed on Imdur Vitals/I&O/Wt Last Vital Signs Temp 98.1 F 08/11/23 09:35 Pulse 70 08/11/23 14:00 Resp 23 H 08/11/23 11:00 BP 93/58 08/11/23 12:10 Pulse Ox 97 08/11/23 12:10 O2 Del Method Room Air 08/11/23 04:00 08/11/23 08/11/23 08/11/23 06:59 14:59 22:59 Intake Total 250 / 660 50 / 50 Output Total 200 / 200 300 / 300 Balance 50 / 460 -250 / -250 Weight last 48 hrs Weight 57.153 kg Weight 56.245 kg Physical Exam 2 Const: COMMON NORMALS: no acute distress and patient oriented x3 Resp: COMMON NORMALS: normal respiratory effort, No retractions, No use of accessory muscles and clear to auscultation bilaterally AUSCULTATION: clear to auscultation bilaterally Cardio: COMMON NORMALS: regular rate, regular rhythm, S1 normal heart sound present and S2 normal heart sound present RATE: regular rate RHYTHM: r egular rhythm HEART SOUNDS: S1 normal heart sound present and S2 normal heart sound present GI: COMMON NORMALS: Normal to inspection, nondistended, normoactive bowel sounds present and non-tender Extremity: COMMON NORMALS: no pedal edema Neuro: COMMON NORMALS: patient oriented x3 Psych: COMMON NORMALS: mental status grossly normal Data 08/11/23 03:13 08/11/23 03:13 Micro: Microbiology 08/08/23 21:42 Urine Culture - Final Urine,Clean Catch Escherichia coli Klebsiella pneumoniae 08/09/23 13:27 Blood Culture - Preliminary Blood NEGATIVE TO DATE 08/09/23 13:39 Blood Culture - Preliminary Blood NEGATIVE TO DATE A&P Assessment and plan (1) Chest pain: (2) CHF exacerbation: (3) Bilateral pleural effusion: Plan Chest pain ? Sounds cardiac in nature, ? First troponin 17, 120-minute troponin 16.76 ? Second EKG shows T wave inversions in inferior leads, with ST depressions in the lateral leads ? Currently chest pain-free, ? Plan, ? Aspirin, statin, beta-susanne, ? Heparin drip, ? Nitro as needed for chest pain, ? Cardiac echo, CONCLUSIONS LV systolic function normal with EF of 60 to 65%. Biatrial dilation Pacemaker lead is seen in the right atrium. Possible echogenic structure is attached to the lead. Mild mitral regurgitation Mild tricuspid regurgitation Moderate pulmonary hypertension Mild pulmonic regurgitation IVC is dilated No comparison studies are available. ? Stress test low probability of CAD ? Given persistent chest pain will consult cardiology ? Full code ? Heparin drip for DVT prophylaxis Echogenic structure attached to lead, medically manage Systolic CHF ? CT angiogram the chest showing bilateral pleural effusions ? Hold off on Lasix today ? Monitor creatinine monitor urine output monitor potassium ? Cardiac echo Atrial fibrillation ? Eliquis ? Digoxin, ? Metoprolol Hypertension, ? Continue metoprolol, ? Continue losartan Patient requires hospitalization to chest pain, s consulted cardiology Attestations 2 Medical Necessity Statement*: Patient requires hospitalization for chest pain requiring cardiology consultation Coding Level of Care Code Acute Code for Chg Fwd Diagnoses Chest pain R07.9 CHF exacerbation I50.9 Bilateral pleural effusion J90
--- NOTE | 2023-08-11 16:33 | P.CONIM_ITS ---
Providers/Reason For Consult 2 Consulting Physician/Specialty*: MARY Courtney MD/cardiology Reason for Consult*: Patient with ongoing chest pain/multiple risk factors for coronary artery disease Requesting Physician: Dr. Benítez Attending Physician: Bigg Benítez MD History of Present Illness History of Present Illness Talon Groves is a 82 year old female with a history of hypertension, dyslipidemia, chronic atrial fibrillation, status post permanent pacer implantation, he is admitted to hospital with complaints of a prolonged episode of chest pain. She continues to have intermittent episodes of chest pain. Cardiology consult is requested for further cardiac evaluation recommendations. This patient has a history of atherosclerotic heart disease based on angiogram many years ago. Details of this are not available. Patient is known to have chronic atrial fibrillation and permanent pacer implantation. She has been on long-term oral anticoagulation. She has a longstanding history of chest pain off and on. Last Thursday, she had a prolonged episode of chest pain lasting for several hours. She responded appropriately to sublingual nitro. She had the Myocardial perfusion imaging yesterday which was essentially unremarkable. She had echocardiogram which revealed normal LV size ejection fraction. No significant wall motion normalities. Patient had another episode of chest pain yesterday. She responded to sublingual nitro. She was started on long-acting nitrates yesterday. She has no fever or chills. No cough. No history for any CVA, peripheral artery disease, liver disease or bleeding disorders. She has a history of chronic kidney disease. The most recent kidney function as an outpatient was unremarkable. Patient has a history of recurrent UTI. Currently has no fever or chills. No cough. Review of Systems 2 Narrative: CONSTITUTIONAL: No fever or chills. EYES: No blurring of vision or other visual disturbances lately. ENT: No hoarseness of voice, auditory disturbances or sore throat. CARDIOVASCULAR: As mentioned above. RESPIRATORY: No significant cough. GASTROINTESTINAL: No hematemesis or melena. GENITOURINARY: No recurrent UTI INTEGUMENTARY: No skin rashes or history of skin cancer. NEURO: No transient ischemic attacks or amaurosis. PSYCHIATRIC: No history of psychosis or major depression. HEMATOLOGIC: No bleeding disorders or significant anemia. ENDOCRINE: No history of polyuria or polydipsia. MUSCULOSKELETAL: No recent joint pain or swelling. ALLERGY/IMMUNOLOGY: As mentioned above. Medications/Allergies Home Medications Medication Instructions Recorded Confirmed Last Taken Type apixaban 2.5 mg tablet (Eliquis) 2.5 mg PO BID 08/08/23 08/08/23 08/08/23 History aspirin 81 mg tablet,delayed 243 mg PO .ONE TIME DOSE 08/08/23 08/08/23 08/08/23 History release atorvastatin 20 mg tablet 20 mg PO BEDTIME 08/08/23 08/08/23 08/07/23 History digoxin 125 mcg (0.125 mg) tablet 125 mcg PO QAM 08/08/23 08/08/23 08/08/23 History furosemide 20 mg tablet 20 mg PO QAM 08/08/23 08/08/23 08/08/23 History hydralazine 25 mg tablet 25 mg PO BID PRN for sbp over 160 08/08/23 08/08/23 08/08/23 History hydrocodone 10 mg-acetaminophen 1 tab PO DIRECTED PRN Pain, 08/08/23 08/08/23 Unknown History 325 mg tablet Moderate levothyroxine 75 mcg tablet 75 mcg PO QAM 08/08/23 08/08/23 08/08/23 History memantine 10 mg tablet 10 mg PO BID 08/08/23 08/08/23 08/08/23 History metoprolol succinate 25 mg 25 mg PO BID 08/08/23 08/08/23 08/08/23 History tablet,extended release 24 hr nitroglycerin 0.4 mg sublingual 0.4 mg sublingual Q5M PRN Chest 08/08/23 08/08/23 Unknown History tablet (Nitrostat) Pain pantoprazole 40 mg tablet,delayed 40 mg PO QAM 08/08/23 08/08/23 08/08/23 History release potassium chloride 20 mEq See Rx Instructions .Route .COMPLEX 08/08/23 08/08/23 08/08/23 History tablet,extended release pramipexole 0.5 mg tablet 0.5 mg PO BEDTIME 08/08/23 08/08/23 08/07/23 History trazodone 100 mg tablet 100 mg PO BEDTIME 08/08/23 08/08/23 08/07/23 History valsartan 160 mg tablet 160 mg PO QAM 08/08/23 08/08/23 08/08/23 History Allergies Allergy/AdvReac Type Severity Reaction Status Date / Time clonidine Allergy DROPS BP Verified 08/08/23 14:57 TO MUCH dexamethasone Allergy ADR-Vomitin Verified 08/08/23 14:57 g NSAIDS (Non-Steroidal Allergy Unknown Verified 08/08/23 14:57 Anti-Inflamma oxycodone Allergy Unknown Verified 08/08/23 14:57 prednisone Allergy ADR-Vomitin Verified 08/08/23 14:57 g Current Medications Generic Name Dose Route Start Last Admin Trade Name Freq PRN Reason Stop Dose Admin Acetaminophen 650 mg 08/08/23 20:30 08/10/23 12:44 Acetaminophen 325 Mg Tablet PO 650 mg Q6H PRN Administration Mild/Mod Pain Or Temp >/= 101 Hydrocodone Bitart/Acetaminophen 1 tab 08/10/23 15:14 08/11/23 09:47 Hydrocodone-Acetaminophen 10-325 Mg Tablet PO 1 tab Q24H PRN Administration MODERATE PAIN Apixaban 2.5 mg 08/10/23 11:00 08/11/23 10:56 Apixaban 5 Mg Tablet PO 2.5 mg Q12H STELLA Administration Aspirin 81 mg 08/09/23 09:00 08/11/23 09:38 Aspirin 81 Mg Ec Tablet PO 81 mg DAILY STELLA Administration Atorvastatin Calcium 20 mg 08/08/23 21:00 08/10/23 21:23 Atorvastatin 40 Mg Tablet PO 20 mg BEDTIME STELLA Administration Digoxin 125 mcg 08/09/23 06:00 08/11/23 05:52 Digoxin 125 Mcg Tablet PO 125 mcg QAM STELLA Administration Ceftriaxone Sodium 1,000 mg/ 50 mls @ 100 mls/hr 08/09/23 08:30 08/11/23 11:02 Sodium Chloride IV Infused Q24H STELLA Infusion Protocol Isosorbide Mononitrate 15 mg 08/11/23 09:00 08/11/23 09:38 Isosorbide Mononitrate Er 30 Mg Tablet PO 15 mg DAILY STELLA Administration Levothyroxine Sodium 75 mcg 08/09/23 06:00 08/11/23 05:52 Levothyroxine 75 Mcg Tablet PO 75 mcg QAM STELLA Administration Memantine 10 mg 08/09/23 09:00 08/11/23 09:37 Memantine 5 Mg Tablet PO 10 mg BID STELLA Administration Metoprolol Succinate 12.5 mg 08/10/23 21:00 08/11/23 09:38 Metoprolol Succinate Er (24 Hr) 25 Mg Tablet PO 12.5 mg BID STELLA Administration Nitroglycerin 0.4 mg 08/08/23 20:30 08/09/23 16:05 Nitroglycerin 0.4 Mg Sublingual Tablet SUBLINGUAL 0.4 mg Q5M PRN Administration Chest Pain Pantoprazole Sodium 40 mg 08/09/23 06:00 08/11/23 05:[address] 40 Mg Tablet PO 40 mg QAM STELLA Administration Pramipexole Dihydrochloride 0.5 mg 08/08/23 21:00 08/10/23 21:23 Pramipexole 0.25 Mg Tablet PO 0.5 mg BEDTIME STELLA Administration Trazodone HCl 100 mg 08/08/23 21:00 08/10/23 21:23 Trazodone 100 Mg Tablet PO 100 mg BEDTIME STELLA Administration PFSH Acute 2 PFSH: Medical History History of chronic kidney disease History of hyperlipidemia History of hypertension History of atrial fibrillation Surgical History History of hysterectomy Family History Brother Brain tumor Mother Brain aneurysm Father Lung cancer Social History Smoking and tobacco/nicotine status: never used tobacco/nicotine Alcohol intake: never Substance/Drug Use: never Vitals/I&O/Wt Last Vital Signs Temp 98.1 F 08/11/23 09:35 Pulse 70 08/11/23 14:00 Resp 23 H 08/11/23 11:00 BP 93/58 08/11/23 12:10 Pulse Ox 97 08/11/23 12:10 O2 Del Method Room Air 08/11/23 04:00 08/11/23 08/11/23 08/11/23 06:59 14:59 22:59 Intake Total 250 / 660 50 / 50 Output Total 200 / 200 300 / 300 Balance 50 / 460 -250 / -250 Weight last 48 hrs Weight 126 lb Weight 124 lb Physical Exam 2 Narrative: GENERAL: The patient is alert and oriented times three. Not in any acute distress. HEENT: No significant pallor, icterus or lymphadenopathy.Oral cavity: There are no mucous membrane lesions. NECK: Trachea appears to be central. No masses noted. No JVD or thyromegaly appreciated. RESPIRATORY: Chest is symmetrical. No intercostals muscle retraction or any accessory muscle activation. There is no chest wall tenderness. Breath sounds are heard bilaterally. No rales or rhonchi heard. No evidence of any consolidation. BREASTS: Deferred. HEART: The heart sounds are normal. No S3 or S4. Short systolic murmur in the lateral border. No diastolic murmurs.. No pericardial rub ABDOMEN: No vessel pulsations or distention. No tenderness. No organomegaly appreciated. Bowel sounds are normally heard. : Deferred. RECTAL: Deferred. LYMPHATIC: No lymphadenopathy noted in the neck. EXTREMITIES: No edema or cyanosis. No clubbing. MUSCULOSKELETAL: No acute joint deformities or swelling SKIN: There are no significant rashes or ecchymosis NEUROPSYCHIATRIC: The patient is alert and oriented x3. Appears to be in a good mood. No tremors or rigidity noted. Data 08/12/23 03:10 08/12/23 03:10 Other Labs: Laboratory Last Values WBC 8.22 10^3/uL (3.29-11.43) 08/11/23 03:13 RBC 4.50 10^6/uL (3.85-5.65) 08/11/23 03:13 Hgb 13.20 g/dL (11.27-16.99) 08/11/23 03:13 Hct 41.2 % (36-47) 08/11/23 03:13 MCV 91.6 fl (85-98) 08/11/23 03:13 MCH 29.3 pg (27-33) 08/11/23 03:13 MCHC 32.0 g/dL (30-55) 08/11/23 03:13 RDW 14.2 % (12.1-15.1) 08/11/23 03:13 Plt Count 162 10^3/cmm (157-399) 08/11/23 03:13 MPV 11.3 fL (7.4-10.4) H 08/11/23 03:13 Neut % (Auto) 52.0 % 08/11/23 03:13 Lymph % (Auto) 34.4 % 08/11/23 03:13 Heard % (Auto) 11.4 % 08/11/23 03:13 Eos % (Auto) 1.5 % 08/11/23 03:13 Baso % (Auto) 0.5 % 08/11/23 03:13 Neut # (Auto) 4.27 10^3/uL (1.8-7.7) 08/11/23 03:13 Lymph # (Auto) 2.8 10^3/uL (0.8-4.8) 08/11/23 03:13 Heard # (Auto) 0.9 10^3/uL (0.2-0.9) 08/11/23 03:13 Eos # (Auto) 0.1 10^3/uL (0.0-0.8) 08/11/23 03:13 Baso # (Auto) 0.0 10^3/uL (0.0-0.1) 08/11/23 03:13 Nucleated RBC % (auto) 0 % 08/11/23 03:13 Nucleated RBCs # 0.0 /100WBC 08/11/23 03:13 ESR 17 mm/hr (0-15) H 08/08/23 14:27 APTT 30.5 SECONDS (23.9-36.7) D 08/10/23 06:46 Sodium 139 mmol/L (136-145) 08/11/23 03:13 Potassium 4.0 mmol/L (3.5-5.1) 08/11/23 03:13 Chloride 97 mmol/L (98-107) L 08/11/23 03:13 Carbon Dioxide 31 mmol/L (22-29) H 08/11/23 03:13 Anion Gap 15.0 (5-19) 08/11/23 03:13 BUN 26 mg/dL (8-23) H 08/11/23 03:13 Creatinine 1.4 mg/dL (0.5-0.9) H 08/11/23 03:13 GFR Calculation Not Reportable 08/11/23 03:13 Glucose 86 mg/dL (65-115) 08/11/23 03:13 Estimat Average Glucose 117 08/08/23 14:27 Hemoglobin A1c 5.7 % (4.0-6.0) 08/08/23 14:27 Calculated Osmolality 292 mOsm/kg (285-295) 08/11/23 03:13 Calcium 9.5 mg/dL (8.5-10.5) 08/11/23 03:13 Phosphorus 4.4 mg/dL (2.5-4.5) 08/11/23 03:13 Magnesium 1.9 mg/dL (1.7-2.3) 08/11/23 03:13 Total Bilirubin 0.6 mg/dL (0.15-1.2) 08/11/23 03:13 AST 14 U/L (0-32) 08/11/23 03:13 ALT 14 U/L (0-33) 08/11/23 03:13 Alkaline Phosphatase 77 U/L (35-105) 08/11/23 03:13 Troponin T Baseline 31 ng/L (0-10) H 08/09/23 17:29 Troponin T 120 Minute 27.46 ng/L (0-10) H 08/09/23 19:10 Delta Troponin T -3.54 ABS# (0-10) L 08/09/23 19:10 Troponin T Hi Sens 6Hr 34.62 ng/L (0-10) H 08/09/23 23:25 Troponin T Hi Sens 6Hr Delta 3.62 ng/L (0-12) 08/09/23 23:25 C-Reactive Protein 3.0 mg/L (0.0-4.9) 08/08/23 15:07 NT-Pro-B Natriuret Pep 4140 pg/mL (0-450) H 08/08/23 15:07 Total Protein 6.1 g/dL (6.6-8.7) L 08/11/23 03:13 Albumin 3.5 g/dL (3.5-5.2) 08/11/23 03:13 Globulin 2.6 g/dL (1.3-4.6) 08/11/23 03:13 Triglycerides 84 mg/dL (0-150) 08/08/23 17:49 Cholesterol 101 mg/dL (0-200) 08/08/23 17:49 LDL Cholesterol, Calc 44 mg/dL (50-129) L 08/08/23 17:49 HDL Cholesterol 40 mg/dL (60-100) L 08/08/23 17:49 LDL/HDL Ratio 1.10 RATIO (0.00-3.22) 08/08/23 17:49 Cholesterol/HDL Ratio 2.53 mg/dL (0.0-4.40) 08/08/23 17:49 Procalcitonin 0.04 ng/mL (0-0.5) 08/08/23 15:07 TSH 0.96 uIU/mL (0.27-4.20) 08/08/23 17:49 Urine Color Colorless (Yellow) 08/08/23 21:42 Urine Appearance Clear (CLEAR) 08/08/23 21:42 Urine pH 8 (5-7) H 08/08/23 21:42 Ur Specific [place] 1.010 (1.005-1.030) 08/08/23 21:42 Urine Protein Neg (Negative) 08/08/23 21:42 Urine Glucose (UA) Norm (Normal) 08/08/23 21:42 Urine Ketones Negative (Negative) 08/08/23 21:42 Urine Blood 2+ (Negative) H 08/08/23 21:42 Urine Nitrate Negative (Negative) 08/08/23 21:42 Urine Bilirubin Neg (Negative) 08/08/23 21:42 Urine Urobilinogen Neg mg/dL (Negative) 08/08/23 21:42 Ur Leukocyte Esterase Trace (Negative) H 08/08/23 21:42 Urine RBC 0-4 /hpf (0-2) H 08/08/23 21:42 Urine WBC 5-10 /hpf (0-5) H 08/08/23 21:42 Ur Squamous Epith Cells 0-4 /hpf (0-5) H 08/08/23 21:42 Amorphous Sediment Not Reportable 08/08/23 21:42 Urine Bacteria 3+ /hpf (NONE) H 08/08/23 21:42 Urine Mucus Trace /hpf 08/08/23 21:42 Digoxin 1.6 ng/mL (0.6-1.2) H 08/08/23 15:07 Micro: Microbiology 08/08/23 21:42 Urine Culture - Final Urine,Clean Catch Escherichia coli Klebsiella pneumoniae 08/09/23 13:27 Blood Culture - Preliminary Blood NEGATIVE TO DATE 08/09/23 13:39 Blood Culture - Preliminary Blood NEGATIVE TO DATE Other data: The EKG showed atrial fibrillation with a V paced rhythm Echocardiogram done on 08/08/2023 LV systolic function normal with EF of 60 to 65%. Biatrial dilation Pacemaker lead is seen in the right atrium. Possible echogenic structure is attached to the lead. Mild mitral regurgitation Mild tricuspid regurgitation Moderate pulmonary hypertension Mild pulmonic regurgitation IVC is dilated No comparison studies are available. Myocardial perfusion imaging done on 08/10/2023 1. Normal myocardial perfusion imaging with no evidence of ischemia 2. LV systolic function is normal A&P Assessment and plan (1) Atherosclerotic heart disease of [place] coronary artery with other forms of angina pectoris: Patient has prolonged episodes of chest pains, may suggest unstable anginal pattern. However the EKG is uninterpretable due to baseline changes. He has no evidence of any myocardial injury. The echocardiogram also is unremarkable. In view of the patient's risk factors, ongoing chest symptoms and previous history of ASHD, it would be appropriate to go ahead with repeat cardiac catheterization to reevaluate the coronary status and decide on further management. This was discussed in detail. The risk of bleeding, hematoma, vascular injury, myocardial infarction, myocardial perforation, malignant cardiac arrhythmias ,CVA, renal failure and other concomitant complications were explained in detail. Patient understood this well and consented to proceed. (2) Benign hypertension: May continue the current medications. (3) Dyslipidemia: Current medications may be continued. (4) Chronic atrial fibrillation: Patient has been on Eliquis up until this morning. This may be discontinued at this time. Patient may be started on subcu Lovenox. Because advanced age and history of kidney disease, I may start her on Lovenox 50 mg every 12 hours. (5) Presence of permanent cardiac pacemaker: The pacemaker function patient be appropriate. May continue on the current management. Plan Based on the results of the above tests and the patient's clinical progress, further recommendations will be made. Thank you for the opportunity to evaluate this patient and make these recommendations Consult Attestations 2 Medical Necessity Statement: Patient requires continued hospital stay for close monitoring and further management Coding Level of Care Code 51676 Diagnoses Atherosclerotic heart disease of [place] coronary artery with other forms of angina pectoris I25.118 Benign hypertension I10 Dyslipidemia E78.5 Chronic atrial fibrillation I48.20 Presence of permanent cardiac pacemaker Z95.0
[2023-08-11] MEDS: enoxaparin 60 mg/0.6 mL Syringe 50 MG SUBCUT (19:38)
[2023-08-11] MEDS: atorvastatin 40 mg Tablet 20 MG PO (21:20)
[2023-08-11] MEDS: pramipexole 0.25 mg Tablet 0.5 MG PO (21:21)
[2023-08-11] MEDS: trazodone 100 mg Tablet PO (21:21)
[2023-08-12] VITALS (13 sets, daily range): BP systolic 92–165; BP diastolic 49–99; PULSE 70; RESP 13–24; TEMP 36.3–36.7; O2SAT 89–96; BMI 20.7
[2023-08-12 03:52] LABS: Basophils % 0.4 %; Eosinophils # 0.1 10^3/uL (0.0-0.8); Eosinophils % 1.8 %; Hematocrit 40.5 % (36-47); Lymphocytes # 2.3 10^3/uL (0.8-4.8); Lymphocytes % 29.1 %; Mean Corpuscular HGB Conc 32.1 g/dL (30-55); Mean Corpuscular Hemoglobin 29.8 pg (27-33); Mean Corpuscular Volume 92.9 fl (85-98); Mean Platelet Volume 11.2 fL (7.4-10.4); Monocytes # 0.7 10^3/uL (0.2-0.9); Monocytes % 9.2 %; Neutrophils % 59.1 %; Nucleated Red Blood Cells % 0 %; Platelet Count 139 10^3/cmm (157-399); Red Blood Count 4.36 10^6/uL (3.85-5.65); White Blood Count 7.79 10^3/uL (3.29-11.43)
[2023-08-12 04:23] LABS: Alanine Aminotransferase 22 U/L (0-33); Albumin Level 3.4 g/dL (3.5-5.2); Alkaline Phosphatase 95 U/L (35-105); Aspartate Amino Transferase 34 U/L (0-32); Blood Urea Nitrogen 27 mg/dL (8-23); Calcium 9.5 mg/dL (8.5-10.5); Carbon Dioxide 30 mmol/L (22-29); Chloride 101 mmol/L (98-107); Creatinine Clr Calc Pharmacy 40.6002; Globulin 2.5 g/dL (1.3-4.6); Glucose 93 mg/dL (65-115); Magnesium 2.1 mg/dL (1.7-2.3); Osmolality Calculated 295 mOsm/kg (285-295); Phosphorus 3.4 mg/dL (2.5-4.5); Sodium 140 mmol/L (136-145); Total Bilirubin 0.5 mg/dL (0.15-1.2); Total Protein 5.9 g/dL (6.6-8.7)
[2023-08-12] MEDS: pantoprazole DR 40 mg Tablet PO (05:56)
[2023-08-12] MEDS: digoxin 125 mcg Tablet PO (05:56)
[2023-08-12] MEDS: levothyroxine 75 mcg Tablet PO (05:56)
[2023-08-12] MEDS: memantine 5 mg tablet 10 MG PO ×2 (09:00→17:52)
[2023-08-12] MEDS: aspirin 81 mg EC Tablet PO (09:00)
[2023-08-12] MEDS: metoprolol succinate ER (24 HR) 25 mg Tablet 12.5 MG PO ×2 (09:01→17:52)
[2023-08-12] MEDS: isosorbide mononitrate ER 30 mg Tablet 15 MG PO (09:02)
[2023-08-12] MEDS: cefTRIAXone 1,000 MG in sodium chloride 0.9% (plus) 50 ML 100 MG IV (09:26)
--- NOTE | 2023-08-12 09:26 | PC.SOCIAL ---
IMM Update Pg. 2 of IMM updated and reviewed with patient. Copy provided. Copy in chart updated.
[2023-08-12] MEDS: HYDROcodone-acetaminophen 10-325 mg Tablet 1 TAB PO (10:52)
--- NOTE | 2023-08-12 10:54 | ECG_ITS ---
[facility] Test Date: 2023-08-12 Pat Name: Talon Groves Department: Room: 102 Gender: Female Student Life Advisor: : 1940 Requested By: Bigg Benítez Order Number: [id number] Roshni MD: Holland Courtney M.D. Measurements Intervals [place] Rate: 70 P: 0 FL: 0 QRS: -75 QRSD: 165 T: 110 QT: 442 QTc: 478 Interpretive Statements ELECTRONIC VENTRICULAR PACEMAKER ABNORMAL RHYTHM ECG Compared to ECG 08/09/2023 17:16:20 No significant changes Electronically Signed On 08-12-2023 23:54:59 CDT by Holland Courtney M.D. [id number]
--- NOTE | 2023-08-12 10:55 | PC.NURSE ---
Provider is notified that patient is complaining of left sided mid back pain 01/25. An EKG is ordered.
--- NOTE | 2023-08-12 12:04 | XR_ITS ---
WS: [id number] Exam: XR chest 1V portable [id number] Date/Time of Exam: 08/12/2023 12:06 PM Reason For Exam: chest pain Comparison 08/08/2023. There is cardiac enlargement. Bibasal pleural effusions are noted. Increased pulmonary vascularity. T he lungs are fully inflated. Permanent cardiac pacer is seen over the LEFT chest. Bony structures are intact. The mediastinum is normal in contour. IMPRESSION: 1. Cardiac enlargement with increased pulmonary vascularity. There has been some improvement. 2. Bibasal pleural effusions. Some improvement on the RIGHT.
[2023-08-12] MEDS: morphine 4 mg/mL SDV 1 mL 2 MG IVP ×2 (12:15→16:23)
[2023-08-12 12:31] LABS: Troponin(5th) Baseline 22 ng/L (0-10)
--- NOTE | 2023-08-12 12:59 | ECG_ITS ---
[facility] Test Date: 2023-08-12 Pat Name: Talon Groves Department: Room: 102 Gender: Female Periodicals Library Assistant: : 1940 Requested By: Bigg Benítez Order Number: [id number] Roshni MD: Holland Courtney M.D. Measurements Intervals [place] Rate: 70 P: 75 VA: 256 QRS: -75 QRSD: 156 T: 107 QT: 423 QTc: 457 Interpretive Statements ELECTRONIC VENTRICULAR PACEMAKER ABNORMAL RHYTHM ECG Compared to ECG 08/12/2023 11:05:24 No significant changes Electronically Signed On 08-13-2023 0:05:15 CDT by Holland Courtney M.D. [email or web address] centerI-Mob Holdings/store/[id number]
[2023-08-12 14:39] LABS: Troponin 5 2HR 25.88 ng/L (0-10); Troponin 5 2HR Delta 3.88 ABS# (0-10)
--- NOTE | 2023-08-12 14:45 | P.PN_ITS ---
Subjective 2 Subjective: Patient was seen this morning, no chest pain overnight, [facility] preparation for coronary angiography due to her persistent chest pain, she denies any shortness of breath, no chest pain overnight, Vitals/I&O/Wt Last Vital Signs Temp 97.3 F L 08/12/23 05:28 Pulse 70 08/12/23 12:00 Resp 13 08/12/23 12:15 BP 104/49 08/12/23 12:00 Pulse Ox 95 08/12/23 12:15 O2 Del Method Room Air 08/12/23 12:00 08/11/23 08/12/23 08/12/23 22:59 06:59 14:59 Intake Total 290.000 / 290.000 Output Total 275 / 575 200 / 200 Balance -275 / -525 90.000 / 90.000 Weight last 48 hrs Weight 52.934 kg Weight 57.153 kg Physical Exam 2 Const: COMMON NORMALS: no acute distress and patient oriented x3 Resp: COMMON NORMALS: normal respiratory effort, No retractions, No use of accessory muscles and clear to auscultation bilaterally AUSCULTATION: clear to auscultation bilaterally Cardio: COMMON NORMALS: regular rate, regular rhythm, S1 normal heart sound present and S2 normal heart sound present RATE: regular rate RHYTHM: r egular rhythm HEART SOUNDS: S1 normal heart sound present and S2 normal heart sound present GI: COMMON NORMALS: Normal to inspection, nondistended, normoactive bowel sounds present and non-tender Extremity: COMMON NORMALS: no pedal edema Neuro: COMMON NORMALS: patient oriented x3 Psych: COMMON NORMALS: mental status grossly normal Data 08/12/23 03:10 08/12/23 03:10 Micro: Microbiology 08/08/23 21:42 Urine Culture - Final Urine,Clean Catch Escherichia coli Klebsiella pneumoniae A&P Assessment and plan (1) Chest pain: (2) CHF exacerbation: (3) Bilateral pleural effusion: (4) UTI (urinary tract infection): Plan Chest pain ? Sounds cardiac in nature, ? First troponin 17, 120-minute troponin 16.76 ? Second EKG shows T wave inversions in inferior leads, with ST depressions in the lateral leads ? Currently chest pain-free, ? Plan, ? Aspirin, statin, beta-susanne, ? Heparin drip, ? Nitro as needed for chest pain, ? Cardiac echo, CONCLUSIONS LV systolic function normal with EF of 60 to 65%. Biatrial dilation Pacemaker lead is seen in the right atrium. Possible echogenic structure is attached to the lead. Mild mitral regurgitation Mild tricuspid regurgitation Moderate pulmonary hypertension Mild pulmonic regurgitation IVC is dilated No comparison studies are available. ? Stress test low probability of CAD ? Given persistent chest pain will consult cardiology, cardiology consulted, plans on coronary angiography tomorrow ? Full code ? Lovenox for DVT prophylaxis Echogenic structure attached to lead, medically manage Systolic CHF ? CT angiogram the chest showing bilateral pleural effusions ? Hold off on Lasix today ? Monitor creatinine monitor urine output monitor potassium ? Cardiac echo Atrial fibrillation ? Lovenox ? Digoxin, ? Metoprolol Hypertension, ? Continue metoprolol, ? Continue losartan UTI, continue Rocephin Patient requires hospitalization to chest pain, s consulted cardiology Attestations 2 Medical Necessity Statement*: Patient requires hospitalization for persistent chest pain proceeding to coronary angiography Diagnoses Chest pain R07.9 CHF exacerbation I50.9 Bilateral pleural effusion J90 UTI (urinary tract infection) N39.0
--- NOTE | 2023-08-12 16:59 | ECG_ITS ---
[facility] Test Date: 2023-08-12 Pat Name: Talon Groves Department: Room: 102 Gender: Female Ripsaw Matcher: : 1940 Requested By: Bigg Benítez Order Number: [id number] Roshni MD: Holland Courtney M.D. Measurements Intervals [place] Rate: 70 P: 0 [place]: 0 QRS: -70 QRSD: 160 T: 105 QT: 430 QTc: 465 Interpretive Statements ELECTRONIC VENTRICULAR PACEMAKER ABNORMAL RHYTHM ECG Compared to ECG 08/12/2023 14:22:54 No significant changes Electronically Signed On 08-13-2023 0:06:46 CDT by Holland Courtney M.D. [email or web address] general [id number]
[2023-08-12] MEDS: enoxaparin 60 mg/0.6 mL Syringe 50 MG SUBCUT (17:52)
--- NOTE | 2023-08-12 18:33 | P.PN_ITS ---
Subjective 2 Subjective: Patient has not had any recurrence of chest pain. Vital signs remained stable. No new symptoms. Medications: Medication Review Details: Current Medications Acetaminophen (Acetaminophen 325 Mg Tablet) 650 mg PO Q6H PRN PRN Reason: Mild/Mod Pain Or Temp >/= 101 Last Admin: 08/10/23 12:44 Dose: 650 mg Aspirin (Aspirin 81 Mg Ec Tablet) 81 mg PO DAILY [facility] Last Admin: 08/12/23 09:00 Dose: 81 mg Aspirin (Aspirin 325 Mg Tablet) 325 mg PO ONCE ONE Stop: 08/13/23 07:01 Atorvastatin Calcium (Atorvastatin 40 Mg Tablet) 20 mg PO BEDTIME [facility] Last Admin: 08/11/23 21:20 Dose: 20 mg Digoxin (Digoxin 125 Mcg Tablet) 125 mcg PO QAM [facility] Last Admin: 08/12/23 05:56 Dose: 125 mcg Diphenhydramine HCl (Diphenhydramine 50 Mg Capsule) 50 mg PO ONCE ONE Stop: 08/13/23 07:01 Enoxaparin Sodium (Enoxaparin 60 Mg/0.6 Ml Syringe) 50 mg SUBCUT Q12H [facility] Last Admin: 08/12/23 17:52 Dose: 50 mg Ceftriaxone Sodium 1,000 mg/ (Sodium Chloride) 50 mls @ 100 mls/hr IV Q24H [facility]; Protocol Last Infusion: 08/12/23 10:42 Dose: Infused Sodium Chloride (Sodium Chloride 0.9%) 1,000 mls @ 50 mls/hr IV .Q20H ONE Stop: 08/13/23 08:52 Isosorbide Mononitrate (Isosorbide Mononitrate Er 30 Mg Tablet) 15 mg PO DAILY [facility] Last Admin: 08/12/23 09:02 Dose: 15 mg Levothyroxine Sodium (Levothyroxine 75 Mcg Tablet) 75 mcg PO QAM [facility] Last Admin: 08/12/23 05:56 Dose: 75 mcg Memantine (Memantine 5 Mg Tablet) 10 mg PO BID [facility] Last Admin: 08/12/23 17:52 Dose: 10 mg Metoprolol Succinate (Metoprolol Succinate Er (24 Hr) 25 Mg Tablet) 12.5 mg PO BID [facility] Last Admin: 08/12/23 17:52 Dose: 12.5 mg Morphine Sulfate (Morphine 4 Mg/Ml Sdv 1 Ml) 2 mg IVP Q4H PRN PRN Reason: SEVERE PAIN Last Admin: 08/12/23 16:23 Dose: 2 mg Naloxone HCl (Naloxone 0.4 Mg/Ml Sdv) 0.1 mg IVP Q2M PRN PRN Reason: OPIATERV Nitroglycerin (Nitroglycerin 0.4 Mg Sublingual Tablet) 0.4 mg SUBLINGUAL Q5M PRN PRN Reason: Chest Pain Last Admin: 08/09/23 16:05 Dose: 0.4 mg Ondansetron HCl (Ondansetron 2 Mg/Ml Sdv 2 Ml) 4 mg IVP Q8H PRN PRN Reason: vomiting, or N/V if npo Ondansetron HCl (Ondansetron 2 Mg/Ml Sdv 2 Ml) 4 mg IVP Q2M PRN PRN Reason: NAUSEA Pantoprazole Sodium (Pantoprazole Dr 40 Mg Tablet) 40 mg PO QAM [facility] Last Admin: 08/12/23 05:56 Dose: 40 mg Pramipexole Dihydrochloride (Pramipexole 0.25 Mg Tablet) 0.5 mg PO BEDTIME [facility] Last Admin: 08/11/23 21:21 Dose: 0.5 mg Trazodone HCl (Trazodone 100 Mg Tablet) 100 mg PO BEDTIME [facility] Last Admin: 08/11/23 21:21 Dose: 100 mg Vitals/I&O/Wt Last Vital Signs Temp 97.5 F L 08/12/23 16:00 Pulse 70 08/12/23 16:00 Resp 19 H 08/12/23 16:23 BP 98/67 08/12/23 16:00 Pulse Ox 94 08/12/23 16:23 O2 Del Method Room Air 08/12/23 16:00 08/12/23 08/12/23 08/12/23 06:59 14:59 22:59 Intake Total 290.000 / 290.000 Output Total 275 / 575 200 / 200 Balance -275 / -525 90.000 / 90.000 Weight last 48 hrs Weight 116 lb 11.2 oz Weight 126 lb Physical Exam 2 Narrative: GENERAL: The patient is alert and oriented times three. Not in any acute distress. HEENT: No significant pallor, icterus or lymphadenopathy.Oral cavity: There are no mucous membrane lesions. NECK: Trachea appears to be central. No masses noted. No JVD or thyromegaly appreciated. RESPIRATORY: Chest is symmetrical. No intercostals muscle retraction or any accessory muscle activation. There is no chest wall tenderness. Breath sounds are heard bilaterally. No rales or rhonchi heard. No evidence of any consolidation. BREASTS: Deferred. HEART: The heart sounds are normal. No S3 or S4. Short systolic murmur in the lateral border. No diastolic murmurs.. No pericardial rub ABDOMEN: No vessel pulsations or distention. No tenderness. No organomegaly appreciated. Bowel sounds are normally heard. : Deferred. RECTAL: Deferred. LYMPHATIC: No lymphadenopathy noted in the neck. EXTREMITIES: No edema or cyanosis. No clubbing. MUSCULOSKELETAL: No acute joint deformities or swelling SKIN: There are no significant rashes or ecchymosis NEUROPSYCHIATRIC: The patient is alert and oriented x3. Appears to be in a good mood. No tremors or rigidity noted. Data 08/12/23 03:10 08/12/23 03:10 Other Labs: Laboratory Last Values WBC 7.79 10^3/uL (3.29-11.43) 08/12/23 03:10 RBC 4.36 10^6/uL (3.85-5.65) 08/12/23 03:10 Hgb 13.00 g/dL (11.27-16.99) 08/12/23 03:10 Hct 40.5 % (36-47) 08/12/23 03:10 MCV 92.9 fl (85-98) 08/12/23 03:10 MCH 29.8 pg (27-33) 08/12/23 03:10 MCHC 32.1 g/dL (30-55) 08/12/23 03:10 RDW 14.0 % (12.1-15.1) 08/12/23 03:10 Plt Count 139 10^3/cmm (157-399) L 08/12/23 03:10 MPV 11.2 fL (7.4-10.4) H 08/12/23 03:10 Neut % (Auto) 59.1 % 08/12/23 03:10 Lymph % (Auto) 29.1 % 08/12/23 03:10 [place] % (Auto) 9.2 % 08/12/23 03:10 Eos % (Auto) 1.8 % 08/12/23 03:10 Baso % (Auto) 0.4 % 08/12/23 03:10 Neut # (Auto) 4.60 10^3/uL (1.8-7.7) 08/12/23 03:10 Lymph # (Auto) 2.3 10^3/uL (0.8-4.8) 08/12/23 03:10 [place] # (Auto) 0.7 10^3/uL (0.2-0.9) 08/12/23 03:10 Eos # (Auto) 0.1 10^3/uL (0.0-0.8) 08/12/23 03:10 Baso # (Auto) 0.0 10^3/uL (0.0-0.1) 08/12/23 03:10 Nucleated RBC % (auto) 0 % 08/12/23 03:10 Nucleated RBCs # 0.0 /100WBC 08/12/23 03:10 ESR 17 mm/hr (0-15) H 08/08/23 14:27 APTT 30.5 SECONDS (23.9-36.7) D 08/10/23 06:46 Sodium 140 mmol/L (136-145) 08/12/23 03:10 Potassium 4.0 mmol/L (3.5-5.1) 08/12/23 03:10 Chloride 101 mmol/L (98-107) 08/12/23 03:10 Carbon Dioxide 30 mmol/L (22-29) H 08/12/23 03:10 Anion Gap 13.0 (5-19) 08/12/23 03:10 BUN 27 mg/dL (8-23) H 08/12/23 03:10 Creatinine 0.9 mg/dL (0.5-0.9) 08/12/23 03:10 GFR Calculation Not Reportable 08/12/23 03:10 Glucose 93 mg/dL (65-115) 08/12/23 03:10 Estimat Average Glucose 117 08/08/23 14:27 Hemoglobin A1c 5.7 % (4.0-6.0) 08/08/23 14:27 Calculated Osmolality 295 mOsm/kg (285-295) 08/12/23 03:10 Calcium 9.5 mg/dL (8.5-10.5) 08/12/23 03:10 Phosphorus 3.4 mg/dL (2.5-4.5) 08/12/23 03:10 Magnesium 2.1 mg/dL (1.7-2.3) 08/12/23 03:10 Total Bilirubin 0.5 mg/dL (0.15-1.2) 08/12/23 03:10 AST 34 U/L (0-32) H 08/12/23 03:10 ALT 22 U/L (0-33) 08/12/23 03:10 Alkaline Phosphatase 95 U/L (35-105) 08/12/23 03:10 Troponin T Baseline 22 ng/L (0-10) H 08/12/23 12:05 Troponin T 120 Minute 25.88 ng/L (0-10) H 08/12/23 14:05 Delta Troponin T 3.88 ABS# (0-10) 08/12/23 14:05 Troponin T Hi Sens 6Hr 34.62 ng/L (0-10) H 08/09/23 23:25 Troponin T Hi Sens 6Hr Delta 3.62 ng/L (0-12) 08/09/23 23:25 C-Reactive Protein 3.0 mg/L (0.0-4.9) 08/08/23 15:07 NT-Pro-B Natriuret Pep 4140 pg/mL (0-450) H 08/08/23 15:07 Total Protein 5.9 g/dL (6.6-8.7) L 08/12/23 03:10 Albumin 3.4 g/dL (3.5-5.2) L 08/12/23 03:10 Globulin 2.5 g/dL (1.3-4.6) 08/12/23 03:10 Triglycerides 84 mg/dL (0-150) 08/08/23 17:49 Cholesterol 101 mg/dL (0-200) 08/08/23 17:49 LDL Cholesterol, Calc 44 mg/dL (50-129) L 08/08/23 17:49 HDL Cholesterol 40 mg/dL (60-100) L 08/08/23 17:49 LDL/HDL Ratio 1.10 RATIO (0.00-3.22) 08/08/23 17:49 Cholesterol/HDL Ratio 2.53 mg/dL (0.0-4.40) 08/08/23 17:49 Procalcitonin 0.04 ng/mL (0-0.5) 08/08/23 15:07 TSH 0.96 uIU/mL (0.27-4.20) 08/08/23 17:49 Urine Color Colorless (Yellow) 08/08/23 21:42 Urine Appearance Clear (CLEAR) 08/08/23 21:42 Urine pH 8 (5-7) H 08/08/23 21:42 Ur Specific [place] 1.010 (1.005-1.030) 08/08/23 21:42 Urine Protein Neg (Negative) 08/08/23 21:42 Urine Glucose (UA) Norm (Normal) 08/08/23 21:42 Urine Ketones Negative (Negative) 08/08/23 21:42 Urine Blood 2+ (Negative) H 08/08/23 21:42 Urine Nitrate Negative (Negative) 08/08/23 21:42 Urine Bilirubin Neg (Negative) 08/08/23 21:42 Urine Urobilinogen Neg mg/dL (Negative) 08/08/23 21:42 Ur Leukocyte Esterase Trace (Negative) H 08/08/23 21:42 Urine RBC 0-4 /hpf (0-2) H 08/08/23 21:42 Urine WBC 5-10 /hpf (0-5) H 08/08/23 21:42 Ur Squamous Epith Cells 0-4 /hpf (0-5) H 08/08/23 21:42 Amorphous Sediment Not Reportable 08/08/23 21:42 Urine Bacteria 3+ /hpf (NONE) H 08/08/23 21:42 Urine Mucus Trace /hpf 08/08/23 21:42 Digoxin 1.6 ng/mL (0.6-1.2) H 08/08/23 15:07 Micro: Microbiology 08/08/23 21:42 Urine Culture - Final Urine,Clean Catch Escherichia coli Klebsiella pneumoniae A&P Assessment and plan (1) Atherosclerotic heart disease of [place] coronary artery with other forms of angina pectoris: Patient has prolonged episodes of chest pains, may suggest unstable anginal pattern. However the EKG is uninterpretable due to baseline changes. He has no evidence of any myocardial injury. The echocardiogram also is unremarkable. In view of the patient's risk factors, ongoing chest symptoms and previous history of ASHD, it would be appropriate to go ahead with repeat cardiac catheterization to reevaluate the coronary status and decide on further management. This was discussed in detail. The risk of bleeding, hematoma, vascular injury, myocardial infarction, myocardial perforation, malignant cardiac arrhythmias ,CVA, renal failure and other concomitant complications were explained in detail. Patient understood this well and consented to proceed. Careful IV hydration today. Repeat a BMP in the morning. Scheduled for cardiac catheterization tomorrow (2) Benign hypertension: May continue the current medications. (3) Dyslipidemia: Current medications may be continued. (4) Chronic atrial fibrillation: Discontinue Lovenox this evening (5) Presence of permanent cardiac pacemaker: The pacemaker function patient be appropriate. May continue on the current management. Plan Cardiac catheterization in the morning. Continue on the current management. Based on the angiogram findings, further recommendations will be made. Attestations 2 Medical Necessity Statement*: Patient requires continued hospital stay for close monitoring and further management Coding Level of Care Code 05162 Diagnoses Atherosclerotic heart disease of [place] coronary artery with other forms of angina pectoris I25.118 Benign hypertension I10 Dyslipidemia E78.5 Chronic atrial fibrillation I48.20 Presence of permanent cardiac pacemaker Z95.0
[2023-08-12 19:59] LABS: Troponin 5 6HR 26.01 ng/L (0-10); Troponin 5 6HR Delta 4.01 ng/L (0-12)
[2023-08-12] MEDS: atorvastatin 40 mg Tablet 20 MG PO (20:34)
[2023-08-12] MEDS: pramipexole 0.25 mg Tablet 0.5 MG PO (20:34)
[2023-08-12] MEDS: trazodone 100 mg Tablet PO (20:34)
[2023-08-13] VITALS (15 sets, daily range): BP systolic 129–188; BP diastolic 74–96; PULSE 70–71; RESP 14–24; TEMP 36.3–37.1; O2SAT 92–98
[2023-08-13 04:13] LABS: Basophils # 0.1 10^3/uL (0.0-0.1); Basophils % 0.7 %; Eosinophils # 0.2 10^3/uL (0.0-0.8); Eosinophils % 2.3 %; Hematocrit 38.7 % (36-47); Lymphocytes % 28.3 %; Mean Corpuscular HGB Conc 31.8 g/dL (30-55); Mean Corpuscular Hemoglobin 29.9 pg (27-33); Mean Corpuscular Volume 94.2 fl (85-98); Mean Platelet Volume 11.1 fL (7.4-10.4); Monocytes # 0.6 10^3/uL (0.2-0.9); Monocytes % 8.5 %; Neutrophils # 4.23 10^3/uL (1.8-7.7); Neutrophils % 59.9 %; Nucleated Red Blood Cells % 0 %; Platelet Count 151 10^3/cmm (157-399); Red Blood Count 4.11 10^6/uL (3.85-5.65); Red Cell Distribution Width 14.3 % (12.1-15.1); White Blood Count 7.06 10^3/uL (3.29-11.43)
[2023-08-13 04:38] LABS: Alanine Aminotransferase 28 U/L (0-33); Albumin Level 3.3 g/dL (3.5-5.2); Alkaline Phosphatase 72 U/L (35-105); Anion Gap 10.8 (5-19); Aspartate Amino Transferase 34 U/L (0-32); Blood Urea Nitrogen 27 mg/dL (8-23); Calcium 9.3 mg/dL (8.5-10.5); Carbon Dioxide 32 mmol/L (22-29); Chloride 100 mmol/L (98-107); Globulin 2.2 g/dL (1.3-4.6); Glucose 82 mg/dL (65-115); Osmolality Calculated 292 mOsm/kg (285-295); Phosphorus 3.4 mg/dL (2.5-4.5); Potassium 3.8 mmol/L (3.5-5.1); Sodium 139 mmol/L (136-145); Total Bilirubin 0.4 mg/dL (0.15-1.2); Total Protein 5.5 g/dL (6.6-8.7)
[2023-08-13] MEDS: levothyroxine 75 mcg Tablet PO (05:11)
[2023-08-13] MEDS: digoxin 125 mcg Tablet PO (05:11)
[2023-08-13] MEDS: pantoprazole DR 40 mg Tablet PO (05:12)
[2023-08-13] MEDS: aspirin 325 mg Tablet PO (07:24)
[2023-08-13] MEDS: diphenhydrAMINE 50 mg Capsule PO (07:24)
[2023-08-13] MEDS: sodium chloride 0.9% 1,000 ML 50 ML IV (07:24)
--- NOTE | 2023-08-13 08:13 | P.PN_ITS ---
Subjective 2 Subjective: Patient continues to feel okay. No chest pain or shortness of breath. Telemetry shows atrial fibrillation with demand V pacing. No new symptoms Medications: Medication Review Details: Current Medications Acetaminophen (Acetaminophen 325 Mg Tablet) 650 mg PO Q6H PRN PRN Reason: Mild/Mod Pain Or Temp >/= 101 Last Admin: 08/10/23 12:44 Dose: 650 mg Aspirin (Aspirin 81 Mg Ec Tablet) 81 mg PO DAILY [facility] Last Admin: 08/12/23 09:00 Dose: 81 mg Atorvastatin Calcium (Atorvastatin 40 Mg Tablet) 20 mg PO BEDTIME [facility] Last Admin: 08/12/23 20:34 Dose: 20 mg Digoxin (Digoxin 125 Mcg Tablet) 125 mcg PO QAM [facility] Last Admin: 08/13/23 05:11 Dose: 125 mcg Ceftriaxone Sodium 1,000 mg/ (Sodium Chloride) 50 mls @ 100 mls/hr IV Q24H [facility]; Protocol Last Infusion: 08/12/23 10:42 Dose: Infused Sodium Chloride (Sodium Chloride 0.9%) 1,000 mls @ 50 mls/hr IV .Q20H ONE Stop: 08/13/23 08:52 Last Admin: 08/13/23 07:24 Dose: 50 mls/hr Isosorbide Mononitrate (Isosorbide Mononitrate Er 30 Mg Tablet) 15 mg PO DAILY [facility] Last Admin: 08/12/23 09:02 Dose: 15 mg Levothyroxine Sodium (Levothyroxine 75 Mcg Tablet) 75 mcg PO QAM [facility] Last Admin: 08/13/23 05:11 Dose: 75 mcg Memantine (Memantine 5 Mg Tablet) 10 mg PO BID [facility] Last Admin: 08/12/23 17:52 Dose: 10 mg Metoprolol Succinate (Metoprolol Succinate Er (24 Hr) 25 Mg Tablet) 12.5 mg PO BID [facility] Last Admin: 08/12/23 17:52 Dose: 12.5 mg Morphine Sulfate (Morphine 4 Mg/Ml Sdv 1 Ml) 2 mg IVP Q4H PRN PRN Reason: SEVERE PAIN Last Admin: 08/12/23 16:23 Dose: 2 mg Naloxone HCl (Naloxone 0.4 Mg/Ml Sdv) 0.1 mg IVP Q2M PRN PRN Reason: OPIATERV Nitroglycerin (Nitroglycerin 0.4 Mg Sublingual Tablet) 0.4 mg SUBLINGUAL Q5M PRN PRN Reason: Chest Pain Last Admin: 08/09/23 16:05 Dose: 0.4 mg Ondansetron HCl (Ondansetron 2 Mg/Ml Sdv 2 Ml) 4 mg IVP Q8H PRN PRN Reason: vomiting, or N/V if npo Ondansetron HCl (Ondansetron 2 Mg/Ml Sdv 2 Ml) 4 mg IVP Q2M PRN PRN Reason: NAUSEA Pantoprazole Sodium (Pantoprazole Dr 40 Mg Tablet) 40 mg PO QAM [facility] Last Admin: 08/13/23 05:12 Dose: 40 mg Pramipexole Dihydrochloride (Pramipexole 0.25 Mg Tablet) 0.5 mg PO BEDTIME [facility] Last Admin: 08/12/23 20:34 Dose: 0.5 mg Trazodone HCl (Trazodone 100 Mg Tablet) 100 mg PO BEDTIME [facility] Last Admin: 08/12/23 20:34 Dose: 100 mg Vitals/I&O/Wt Last Vital Signs Temp 97.4 F L 08/13/23 07:42 Pulse 70 08/13/23 07:42 Resp 16 08/13/23 07:42 BP 142/77 08/13/23 07:42 Pulse Ox 93 08/13/23 07:42 O2 Del Method Room Air 08/13/23 04:00 08/12/23 08/13/23 08/13/23 22:59 06:59 14:59 Intake Total 1250 / 1540.000 100 / 1640.000 Balance 1250 / 1340.000 100 / 1440.000 Weight last 48 hrs Weight 122 lb 1.6 oz Weight 116 lb 11.2 oz Physical Exam 2 Narrative: GENERAL: The patient is alert and oriented times three. Not in any acute distress. HEENT: No significant pallor, icterus or lymphadenopathy.Oral cavity: There are no mucous membrane lesions. NECK: Trachea appears to be central. No masses noted. No JVD or thyromegaly appreciated. RESPIRATORY: Chest is symmetrical. No intercostals muscle retraction or any accessory muscle activation. There is no chest wall tenderness. Breath sounds are heard bilaterally. No rales or rhonchi heard. No evidence of any consolidation. BREASTS: Deferred. HEART: The heart sounds are normal. No S3 or S4. No significant murmurs. No pericardial rub ABDOMEN: No vessel pulsations or distention. No tenderness. No organomegaly appreciated. Bowel sounds are normally heard. : Deferred. RECTAL: Deferred. LYMPHATIC: No lymphadenopathy noted in the neck. EXTREMITIES: No edema or cyanosis. No clubbing. MUSCULOSKELETAL: No acute joint deformities or swelling SKIN: There are no significant rashes or ecchymosis NEUROPSYCHIATRIC: The patient is alert and oriented x3. Appears to be in a good mood. No tremors or rigidity noted. Data 08/14/23 03:34 08/14/23 03:34 Other Labs: Laboratory Last Values WBC 7.06 10^3/uL (3.29-11.43) 08/13/23 03: RBC 4.11 10^6/uL (3.85-5.65) 08/13/23 03:27 Hgb 12.30 g/dL (11.27-16.99) 08/13/23 03: Hct 38.7 % (36-47) 08/13/23 03:27 MCV 94.2 fl (85-98) 08/13/23 03: MCH 29.9 pg (27-33) 08/13/23 03: MCHC 31.8 g/dL (30-55) 08/13/23 03: RDW 14.3 % (12.1-15.1) 08/13/23 03:27 Plt Count 151 10^3/cmm (157-399) L 08/13/23 03:27 MPV 11.1 fL (7.4-10.4) H 08/13/23 03: Neut % (Auto) 59.9 % 08/13/23 03:27 Lymph % (Auto) 28.3 % 08/13/23 03:27 [place] % (Auto) 8.5 % 08/13/23 03: Eos % (Auto) 2.3 % 08/13/23 03: Baso % (Auto) 0.7 % 08/13/23 03:27 Neut # (Auto) 4.23 10^3/uL (1.8-7.7) 08/13/23 03:27 Lymph # (Auto) 2.0 10^3/uL (0.8-4.8) 08/13/23 03:27 [place] # (Auto) 0.6 10^3/uL (0.2-0.9) 08/13/23 03:27 Eos # (Auto) 0.2 10^3/uL (0.0-0.8) 08/13/23 03:27 Baso # (Auto) 0.1 10^3/uL (0.0-0.1) 08/13/23 03:27 Nucleated RBC % (auto) 0 % 08/13/23 03:27 Nucleated RBCs # 0.0 /100WBC 08/13/23 03:27 ESR 17 mm/hr (0-15) H 08/08/23 14:27 APTT 30.5 SECONDS (23.9-36.7) D 08/10/23 06:46 Sodium 139 mmol/L (136-145) 08/13/23 03:27 Potassium 3.8 mmol/L (3.5-5.1) 08/13/23 03:27 Chloride 100 mmol/L (98-107) 08/13/23 03:27 Carbon Dioxide 32 mmol/L (22-29) H 08/13/23 03:27 Anion Gap 10.8 (5-19) 08/13/23 03:27 BUN 27 mg/dL (8-23) H 08/13/23 03:27 Creatinine 1.1 mg/dL (0.5-0.9) H 08/13/23 03:27 GFR Calculation Not Reportable 08/13/23 03:27 Glucose 82 mg/dL (65-115) 08/13/23 03:27 Estimat Average Glucose 117 08/08/23 14:27 Hemoglobin A1c 5.7 % (4.0-6.0) 08/08/23 14:27 Calculated Osmolality 292 mOsm/kg (285-295) 08/13/23 03:27 Calcium 9.3 mg/dL (8.5-10.5) 08/13/23 03:27 Phosphorus 3.4 mg/dL (2.5-4.5) 08/13/23 03:27 Magnesium 2.0 mg/dL (1.7-2.3) 08/13/23 03:27 Total Bilirubin 0.4 mg/dL (0.15-1.2) 08/13/23 03:27 AST 34 U/L (0-32) H 08/13/23 03: ALT 28 U/L (0-33) 08/13/23 03:27 Alkaline Phosphatase 72 U/L (35-105) 08/13/23 03:27 Troponin T Baseline 22 ng/L (0-10) H 08/12/23 12:05 Troponin T 120 Minute 25.88 ng/L (0-10) H 08/12/23 14:05 Delta Troponin T 3.88 ABS# (0-10) 08/12/23 14:05 Troponin T Hi Sens 6Hr 26.01 ng/L (0-10) H 08/12/23 18:30 Troponin T Hi Sens 6Hr Delta 4.01 ng/L (0-12) 08/12/23 18:30 C-Reactive Protein 3.0 mg/L (0.0-4.9) 08/08/23 15:07 NT-Pro-B Natriuret Pep 4140 pg/mL (0-450) H 08/08/23 15:07 Total Protein 5.5 g/dL (6.6-8.7) L 08/13/23 03: Albumin 3.3 g/dL (3.5-5.2) L 08/13/23 03:27 Globulin 2.2 g/dL (1.3-4.6) 08/13/23 03:27 Triglycerides 84 mg/dL (0-150) 08/08/23 17:49 Cholesterol 101 mg/dL (0-200) 08/08/23 17:49 LDL Cholesterol, Calc 44 mg/dL (50-129) L 08/08/23 17:49 HDL Cholesterol 40 mg/dL (60-100) L 08/08/23 17:49 LDL/HDL Ratio 1.10 RATIO (0.00-3.22) 08/08/23 17:49 Cholesterol/HDL Ratio 2.53 mg/dL (0.0-4.40) 08/08/23 17:49 Procalcitonin 0.04 ng/mL (0-0.5) 08/08/23 15:07 TSH 0.96 uIU/mL (0.27-4.20) 08/08/23 17:49 Urine Color Colorless (Yellow) 08/08/23 21:42 Urine Appearance Clear (CLEAR) 08/08/23 21:42 Urine pH 8 (5-7) H 08/08/23 21:42 Ur Specific [place] 1.010 (1.005-1.030) 08/08/23 21:42 Urine Protein Neg (Negative) 08/08/23 21:42 Urine Glucose (UA) Norm (Normal) 08/08/23 21:42 Urine Ketones Negative (Negative) 08/08/23 21:42 Urine Blood 2+ (Negative) H 08/08/23 21:42 Urine Nitrate Negative (Negative) 08/08/23 21:42 Urine Bilirubin Neg (Negative) 08/08/23 21:42 Urine Urobilinogen Neg mg/dL (Negative) 08/08/23 21:42 Ur Leukocyte Esterase Trace (Negative) H 08/08/23 21:42 Urine RBC 0-4 /hpf (0-2) H 08/08/23 21:42 Urine WBC 5-10 /hpf (0-5) H 08/08/23 21:42 Ur Squamous Epith Cells 0-4 /hpf (0-5) H 08/08/23 21:42 Amorphous Sediment Not Reportable 08/08/23 21:42 Urine Bacteria 3+ /hpf (NONE) H 08/08/23 21:42 Urine Mucus Trace /hpf 08/08/23 21:42 Digoxin 1.6 ng/mL (0.6-1.2) H 08/08/23 15:07 A&P Assessment and plan (1) Atherosclerotic heart disease of [place] coronary artery with other forms of angina pectoris: Patient has prolonged episodes of chest pains, may suggest unstable anginal pattern. However the EKG is uninterpretable due to baseline changes. He has no evidence of any myocardial injury. The echocardiogram also is unremarkable. In view of the patient's risk factors, ongoing chest symptoms and previous history of ASHD, it would be appropriate to go ahead with repeat cardiac catheterization to reevaluate the coronary status and decide on further management. This was discussed in detail. The risk of bleeding, hematoma, vascular injury, myocardial infarction, myocardial perforation, malignant cardiac arrhythmias ,CVA, renal failure and other concomitant complications were explained in detail. Patient understood this well and consented to proceed. The repeat BMP today revealed a BUN of 27 creatinine 1.1. (2) Benign hypertension: May continue the current medications. (3) Dyslipidemia: Current medications may be continued. (4) Chronic atrial fibrillation: Patient had the last dose of the Lovenox yesterday evening. (5) Presence of permanent cardiac pacemaker: The pacemaker function patient be appropriate. May continue on the current management. Plan Apparently the patient did not receive the IV hydration ordered last night. Will go ahead and give to 250 cc bolus now. Continue with the 75 cc/h afterwards. Will go ahead with the cardiac catheterization Attestations 2 Medical Necessity Statement*: Patient requires continued hospital stay for close monitoring and further management Coding Level of Care Code 93529 Diagnoses Atherosclerotic heart disease of [place] coronary artery with other forms of angina pectoris I25.118 Benign hypertension I10 Dyslipidemia E78.5 Chronic atrial fibrillation I48.20 Presence of permanent cardiac pacemaker Z95.0
--- NOTE | 2023-08-13 08:18 | W.PM.OPSUD ---
Surgery/Procedure H&P Update DATE OF PROCEDURE: August 13, 2023 DATE H&P PERFORMED: 08/11/23 H&P UPDATE INFORMATION: I have reviewed H&P completed within last 30 days, I have examined patient prior to procedure and No changes to prior documentation PREOP DIAGNOSIS: Atherosclerotic heart disease PRIMARY INDICATION FOR PROCEDURE: Previous history of ASHD. Ongoing episodes of chest pain. Unremarkable echocardiogram and Myocardial perfusion imaging PLANNED PROCEDURE: Left heart catheterization with coronary angiogram and possible PCI AIRWAY EVAL/ANESTHESIA PLAN: normal airway, see other exam findings, ASA III, Monitored Anesthesia, Local Anesthesia, Risks, benefits & alternatives of sedation and/or procedure discussed and Patient agrees to continue as planned
--- NOTE | 2023-08-13 08:30 | XACV_ITS ---
Exam Room: [facility] Ht: 160 cm Wt: 53 kg BSA: 1.53 m2 Gender: Female : 1940 Any Known Allergies: Other Exam Priority: Routine Procedure(s): Procedure Description: Diagnostic procedure Procedure Description: Left Heart Catheterization Procedure Description: Left ventriculography Procedure Description: Coronary Angiography Sherwin SANDOVAL; Diagnostic Cath Status: Urgent Diagnostic Findings * The left main is a medium caliber vessel with a mild diffuse plaques. No significant stenotic lesions were noted. * The left anterior descending artery is a medium caliber vessel with mild to moderate diffuse plaques in the proximal and mid segment. The distal artery appears to taper off to its the LV apex. The artery gives off multiple diagonal branches which are found to have minimal proximal disease involving the ostium. No significant stenotic lesions. The proximal left anterior descending artery has a 30% eccentric lesion.. * The left circumflex artery also is a medium caliber vessel which was found to give off a high obtuse marginal branch which has a proximal around 30% tubular narrowing. No other significant stenotic lesions. Mild to moderate calcification was noted in the proximal segment.. * The right coronary artery is a medium caliber dominant vessel which also was found to have mild diffuse disease in the proximal and mid segment. No significant stenotic lesions were noted. There was mild to moderate diffuse coronary calcification in the proximal and mid segment as well. Conclusions 1. 82-year-old white female with history of hypertension, dyslipidemia, chronic atrial fibrillation, status post permanent pacemaker evaluation, presents with complaints of increasing episodes of chest pain. Myocardial infarction was ruled out. She had a an echocardiogram and a Myocardial perfusion imaging. These were unremarkable. However the patient continued to have episodes of chest pain in the hospital. In view of her risk factors and ongoing symptoms, in order to further evaluate the coronary status, a cardiac catheterization was thought to be appropriate. Patient underwent left heart catheterization with left and right coronary angiogram and LV angiogram today. The findings are as follows. 2. Mild to moderate diffuse calcification of the coronary arteries in the proximal and mid segment. Mild disease in the proximal segments of the left anterior descending artery, circumflex artery and the right coronary artery. LV ejection fraction 50%. LVEDP of 11 mmHg. Mild hypokinesia of the inferoapical segment, based on the LV angiogram. Diagnostic RX Recommendation: medical therapy and/or counseling LV EDP: 11 mmHg Ventriculography Ejection Fraction: 50.0 % Left Ventriculography Findings: * The LV gram was performed in the LAMB projection. The LV cavity appears to be of normal size. There was mild diffuse hypokinesia of the inferoapical region. The overall LV ejection fraction was around 50%. LVEDP was 11 mmHg. Pressures Phase:Rest AO : 159 / 78 ( 109 ) @ 10:16:00 AM 122 / 73 ( 96 ) @ 10:22:00 AM 108 / 56 ( 81 ) @ 10:26:00 AM 153 / 69 ( 102 ) @ 10:31:00 AM 154 / 70 ( 102 ) @ 10:31:00 AM LV : 169 / -1 / 10 @ 10:30:00 AM 165 / -2 / 15 @ 10:30:00 AM 167 / -6 / 11 @ 10:31:00 AM Valves Phase:DefaultPhase AV : 14.0 @ 9:41:42 AM 14.0 @ 9:41:42 AM AV Mean Gradient: 17.0 @ 9:41:42 AM 17.0 @ 9:41:42 AM Clinical Evaluation EBL: 5mL-10mL Procedural Details Procedure Consent Obtained. Pre-Procedure Time Out. Identified patient by full name and date of as verbalized by the patient/guarantor. Does the consent match the physician's order: Yes. Accurate & Complete Informed Consent: Yes. Inpatient/Outpatient History & Physical on Chart: Yes. If H&P is completed, is and addenduem needed: No; If yes, is the addendum complete: N/A. Visualize and Verify Site with Patient/Guarantor: N/A. Relevant Radiology Images available: Yes. Pre-op teaching completed and patient verbalized understanding. The risks, benefits, and alternatives of sedation and/or procedure were discussed by physician. The patient agrees to continue. Procedure started. [facility] Clinical Fraility Score: 5: Mildly Frail. Suspender Maker Indications: ACS > 24 hours. Chest Pain Symptom Assessment: Atypical Angina. Correct patient, site and procedure confirmed by cath team. Current diagnosis: NSTEMI. PERRLA. Strong, equal hand soil conservation technician bilaterally. Lungs clear x 5 lobes. IV Site on Arrival: 18 gauge in the left anticubital. IV Fluids: 0.9% NaCl at KVO. 200 mL infused prior to recyclable materials collector. Oxygen started at 2liters/min via nasal canula. bilateral groins was prepped with chloroprep then draped in the usual sterile fashion. Current Diagnosis : NSTEMI. Baseline sample Acquired. HR: 75 BPM. Physician arrived. Physician scrubbed in. Immediate Pre-Procedure Time Out. Correct Patient: Yes; Correct Procedure: Yes; Correct Site: Yes; Correct Patient Position: Yes; Correct Supplies: Yes; Dried Flammable Prep: Yes; Blood Products Available: N/A;. Lidocaine 1% infiltrated to the right groin. Arterial access obtained with micropuncture set. A 5 filipino JL4 catheter in over wire. Catheter removed over the standard wire. A 5 filipino JL5 catheter in over wire. Multiple views taken of left coronary artery. A 5 filipino JR4 catheter in over wire. Multiple views taken of right coronary artery. A 5 filipino Angled Pig catheter in over wire. EDP Sample taken: LV 169/-2,10; HR: 69 BPM; SpO2: 96%. LV gram performed in LAMB @ 10 mL/second for a total of 30 mL. EDP Sample taken: LV 165/-3,15; HR: 72 BPM; SpO2: 97%. Pullback taken: LV 167/-7,11; AO 153/69(102); Mean: 17mmHg, Peak to Peak: 14mmHg, SEP: 20sec/min; HR: 71 BPM; SpO2: 96%. ACT drawn. Results 223 seconds. Therapeutic limits - pre-heparin administration 90-150 seconds and monitoring heparin during a vascular procedure >250 seconds. Physician scrubbed out. Physician review of cine films. Total IV fluids: 30 mL. Medication's Wasted: Heparin = 2500 units. Medication's Wasted: Other = Fentanyl 100mg Versed 1.5 mg. A Suture was successful obtaining hemostatsis at the Right Femoral artery insertion site. Arterial sheath flushed and connected to tranducer and pressure bag with heparinized saline. Post Procedure: Pulses reassessed and unchanged. PERRLA. Strong, equal hand soil conservation technician bilaterally. No VTE prophylaxis required. Complications: None. Estimated blood loss: 5mL-10mL. Responsiveness - Normal response to verbal stimuli; alert and oriented, PERRLA. Airway - Unaffected, no intervention required; spontaneous ventilation. Circulation: W/N/L, pulses unchanged. Nausea/Vomiting: No. Procedure completed. Patient transferred by bed to CPRU. Vital chart was stopped. Catheter removed over the standard wire. Catheter removed over the standard wire. Catheter removed over the standard wire. Access Site Site: Right Femoral artery Sheath Size: 6 Fr Hemostasis Method: Suture Hemostasis Success: Successful Procedure Medications Start: 9:12 AM Stop: 9:12 AM Medication: Versed Amount: 0.5 mg Route: I.V. Start: 9:15 AM Stop: 9:15 AM Medication: Heparin Amount: 1500 units Route: I.V. I, the attending physician, have reviewed and verified all procedure medications. Yes, all medications given per verbal order History/Risk Factors Hypertension: Yes Dyslipidemia: Yes Peripheral Arterial Disease (PAD): No Myocardial Infarction (SC): No Obesity: No Renal Disease: No Tobacco Use: Never Prior Interventions PCI: No CABG: No Valve Surgery: No Report Signatures Finalized by Dr Holland Courtney MD [facility] on 08/13/2023 10:04 AM
--- NOTE | 2023-08-13 09:43 | PC.NURSE ---
Patient left unit to minilab operator at 0830.
--- NOTE | 2023-08-13 09:50 | PC.NURSE ---
Recovery Note Received patient post cath procedure to CPRU room 3. Pt awake and oriented. Breathing even and non-labored on room air. Denies pain. Pt placed on bedside bill of materials clerk. Right groin has arterial sheath sutured and connected to pressure bag. Site asymptomatic. Pedal pulses present.
--- NOTE | 2023-08-13 10:33 | PC.NURSE ---
Patient came back from garage laborer via her bed with a right femoral sheath connected to a pressure bag. No hemotoma noted.
[2023-08-13] MEDS: metoprolol succinate ER (24 HR) 25 mg Tablet 12.5 MG PO ×2 (10:58→17:36)
[2023-08-13] MEDS: isosorbide mononitrate ER 30 mg Tablet 15 MG PO (10:58)
[2023-08-13] MEDS: cefTRIAXone 1,000 MG in sodium chloride 0.9% (plus) 50 ML 100 MG IV (10:59)
[2023-08-13] MEDS: memantine 5 mg tablet 10 MG PO ×2 (10:59→17:37)
--- NOTE | 2023-08-13 12:08 | P.PN_ITS ---
Subjective 2 Subjective: patient was seen this morning, she denies chest pain overnight, awaiting her coronary angiogram Vitals/I&O/Wt Last Vital Signs Temp 97.8 F 08/13/23 11:53 Pulse 70 08/13/23 11:53 Resp 18 08/13/23 11:53 BP 165/96 08/13/23 11:53 Pulse Ox 94 08/13/23 11:53 O2 Del Method Room Air 08/13/23 10:15 08/12/23 08/13/23 08/13/23 22:59 06:59 14:59 Intake Total 1250 / 1540.000 100 / 1640.000 Balance 1250 / 1340.000 100 / 1440.000 Weight last 48 hrs Weight 55.384 kg Weight 52.934 kg Physical Exam 2 Const: COMMON NORMALS: no acute distress and patient oriented x3 Resp: COMMON NORMALS: normal respiratory effort, No retractions, No use of accessory muscles and clear to auscultation bilaterally AUSCULTATION: clear to auscultation bilaterally Cardio: COMMON NORMALS: regular rate, regular rhythm, S1 normal heart sound present and S2 normal heart sound present RATE: regular rate RHYTHM: r egular rhythm HEART SOUNDS: S1 normal heart sound present and S2 normal heart sound present GI: COMMON NORMALS: Normal to inspection, nondistended, normoactive bowel sounds present and non-tender Extremity: COMMON NORMALS: no pedal edema Neuro: COMMON NORMALS: patient oriented x3 Psych: COMMON NORMALS: mental status grossly normal Data 08/13/23 03:27 08/13/23 03:27 A&P Assessment and plan (1) Chest pain: (2) CHF exacerbation: (3) Bilateral pleural effusion: (4) UTI (urinary tract infection): Plan Chest pain ? Sounds cardiac in nature, ? First troponin 17, 120-minute troponin 16.76 ? Second EKG shows T wave inversions in inferior leads, with ST depressions in the lateral leads ? Currently chest pain-free, ? Plan, ? Aspirin, statin, beta-susanne, ? Heparin drip, ? Nitro as needed for chest pain, ? Cardiac echo, CONCLUSIONS LV systolic function normal with EF of 60 to 65%. Biatrial dilation Pacemaker lead is seen in the right atrium. Possible echogenic structure is attached to the lead. Mild mitral regurgitation Mild tricuspid regurgitation Moderate pulmonary hypertension Mild pulmonic regurgitation IVC is dilated No comparison studies are available. ? Stress test low probability of CAD ? Given persistent chest pain will consult cardiology, cardiology consulted, plans on coronary angiography today ? Full code ? Lovenox for DVT prophylaxis Echogenic structure attached to lead, medically manage Systolic CHF ? CT angiogram the chest showing bilateral pleural effusions ? Hold off on Lasix today ? Monitor creatinine monitor urine output monitor potassium ? Cardiac echo Atrial fibrillation ? Lovenox ? Digoxin, ? Metoprolol Hypertension, ? Continue metoprolol, ? Continue losartan UTI, continue Rocephin Attestations 2 Medical Necessity Statement*: patient requires hospitalization for chest pain Diagnoses Chest pain R07.9 CHF exacerbation I50.9 Bilateral pleural effusion J90 UTI (urinary tract infection) N39.0
[2023-08-13 12:46] LABS: Partial Thromboplastin Time 31.5 SECONDS (23.9-36.7)
--- NOTE | 2023-08-13 18:21 | PC.NURSE ---
Patient presented from cath lab radiological technologist to CSU with a right femoral sheath connected to a pressure bag. Sheath was pulled at and manual pressure was held for 30 minutes. Hemostasis was difficult to get. Two cath lab radiological technologist nurses were called to help with hemostasis. Manual pressure was let up and site was observed for 5 minutes. Bleeding started again. Manual pressure was held again for another 25 minutes. Site was observed for 20 minutes. A dressing of two 4 x 4 and tegaderm is applied. Bleeding started again shortly after. Manual pressure is held again for 20 minutes and a Femostop Gold is applied by cath lab radiological technologist nurse. Dr. Courtney came to see patient at 1700 to assess the site. He ordered to leave the Femostop on for an additional hour and a half. Watch closely for bleeding. Patient has not moved her right leg and is careful not to lift her head. She is lying at 15 degrees. Femostop can be moved at 1830 and clean bedding applied.
[2023-08-13 18:22] LABS: Basophils # 0.1 10^3/uL (0.0-0.1); Basophils % 0.6 %; Eosinophils # 0.2 10^3/uL (0.0-0.8); Eosinophils % 2.4 %; Lymphocytes # 1.9 10^3/uL (0.8-4.8); Lymphocytes % 21.7 %; Mean Corpuscular HGB Conc 31.9 g/dL (30-55); Mean Corpuscular Hemoglobin 29.8 pg (27-33); Mean Corpuscular Volume 93.3 fl (85-98); Mean Platelet Volume 11.1 fL (7.4-10.4); Monocytes # 0.7 10^3/uL (0.2-0.9); Monocytes % 7.8 %; Neutrophils # 5.78 10^3/uL (1.8-7.7); Neutrophils % 67.3 %; Nucleated Red Blood Cells % 0 %; Platelet Count 159 10^3/cmm (157-399); Red Blood Count 3.86 10^6/uL (3.85-5.65); Red Cell Distribution Width 14.1 % (12.1-15.1); White Blood Count 8.59 10^3/uL (3.29-11.43)
--- NOTE | 2023-08-13 19:00 | PC.NURSE ---
Bedside report. Removed Femstop from patient right groin which had been placed post sheath removal due to persistent bleeding. No bleeding or hematoma observed at this time. Rolled, cleaned and removed dirty linen from underneath patient. Reassessed right groin. Site continues to be free from bleeding or hematoma formation. Instructed patient on site care and restrictions. Patient verbalized complete understanding. Chen catheter in place for now.
[2023-08-13] MEDS: atorvastatin 40 mg Tablet 20 MG PO (20:10)
[2023-08-13] MEDS: pramipexole 0.25 mg Tablet 0.5 MG PO (20:11)
[2023-08-13] MEDS: trazodone 100 mg Tablet PO (20:11)
[2023-08-13] MEDS: morphine 4 mg/mL SDV 1 mL 2 MG IVP (20:13)
[2023-08-14] VITALS (9 sets, daily range): BP systolic 97–139; BP diastolic 50–79; PULSE 70; RESP 12–21; TEMP 36.4–36.8; O2SAT 91–97
--- NOTE | 2023-08-14 03:29 | PC.NURSE ---
This RN agrees with all documentation and care provided performed by SN Leila.
[2023-08-14 04:09] LABS: Basophils % 0.4 %; Eosinophils # 0.2 10^3/uL (0.0-0.8); Eosinophils % 2.7 %; Hematocrit 34.1 % (36-47); Lymphocytes # 2.2 10^3/uL (0.8-4.8); Lymphocytes % 26.2 %; Mean Corpuscular HGB Conc 31.1 g/dL (30-55); Mean Corpuscular Hemoglobin 28.9 pg (27-33); Mean Corpuscular Volume 92.9 fl (85-98); Mean Platelet Volume 10.8 fL (7.4-10.4); Monocytes # 0.7 10^3/uL (0.2-0.9); Monocytes % 8.3 %; Neutrophils # 5.22 10^3/uL (1.8-7.7); Nucleated Red Blood Cells % 0 %; Platelet Count 149 10^3/cmm (157-399); Red Blood Count 3.67 10^6/uL (3.85-5.65); White Blood Count 8.42 10^3/uL (3.29-11.43)
[2023-08-14 04:36] LABS: Alanine Aminotransferase 31 U/L (0-33); Alkaline Phosphatase 65 U/L (35-105); Anion Gap 12.2 (5-19); Aspartate Amino Transferase 33 U/L (0-32); Blood Urea Nitrogen 21 mg/dL (8-23); Calcium 8.8 mg/dL (8.5-10.5); Carbon Dioxide 29 mmol/L (22-29); Chloride 106 mmol/L (98-107); Globulin 2.2 g/dL (1.3-4.6); Glucose 82 mg/dL (65-115); Osmolality Calculated 298 mOsm/kg (285-295); Phosphorus 3.3 mg/dL (2.5-4.5); Potassium 4.2 mmol/L (3.5-5.1); Sodium 143 mmol/L (136-145); Total Bilirubin 0.4 mg/dL (0.15-1.2); Total Protein 5.2 g/dL (6.6-8.7)
[2023-08-14] MEDS: pantoprazole DR 40 mg Tablet PO (05:20)
[2023-08-14] MEDS: digoxin 125 mcg Tablet PO (05:20)
[2023-08-14] MEDS: levothyroxine 75 mcg Tablet PO (05:20)
[2023-08-14] MEDS: memantine 5 mg tablet 10 MG PO (07:58)
[2023-08-14] MEDS: cefTRIAXone 1,000 MG in sodium chloride 0.9% (plus) 50 ML 100 MG IV (07:58)
[2023-08-14] MEDS: aspirin 81 mg EC Tablet PO (08:06)
[2023-08-14] MEDS: metoprolol succinate ER (24 HR) 25 mg Tablet 12.5 MG PO (08:07)
[2023-08-14] MEDS: isosorbide mononitrate ER 30 mg Tablet 15 MG PO (08:08)
--- NOTE | 2023-08-14 08:22 | PM.PN ---
Subjective Subjective: Patient underwent cardiac catheterization yesterday. She was found to have mild to moderate diffuse coronary artery disease. Based on the angiogram findings, it was decided to treat her medically. She is remaining stable with no specific symptoms at this point. Medications: Medication Review Details: Current Medications Acetaminophen (Acetaminophen 325 Mg Tablet) 650 mg PO Q6H PRN PRN Reason: Mild/Mod Pain Or Temp >/= 101 Last Admin: 08/10/23 12:44 Dose: 650 mg Al Hydrox/Mg Hydrox/Simethicone (Kldk-Zss-Jurxfldhd-Waqar 30 Ml Udc) 30 ml PO Q15M PRN PRN Reason: INDIGESTION Alprazolam (Alprazolam 0.5 Mg Tablet) 0.25 mg PO TID PRN PRN Reason: ANXIETY Aspirin (Aspirin 81 Mg Ec Tablet) 81 mg PO DAILY [facility] Last Admin: 08/14/23 08:06 Dose: 81 mg Atorvastatin Calcium (Atorvastatin 40 Mg Tablet) 20 mg PO BEDTIME [facility] Last Admin: 08/13/23 20:10 Dose: 20 mg Atropine Sulfate (Atropine 1 Mg/Ml Sdv 1 Ml) 0.5 mg IVP PRN PRN PRN Reason: Symptomatic bradycardia Digoxin (Digoxin 125 Mcg Tablet) 125 mcg PO QAM [facility] Last Admin: 08/14/23 05:20 Dose: 125 mcg Ceftriaxone Sodium 1,000 mg/ (Sodium Chloride) 50 mls @ 100 mls/hr IV Q24H [facility]; Protocol Last Admin: 08/14/23 07:58 Dose: 100 mls/hr Isosorbide Mononitrate (Isosorbide Mononitrate Er 30 Mg Tablet) 15 mg PO DAILY [facility] Last Admin: 08/14/23 08:08 Dose: 15 mg Levothyroxine Sodium (Levothyroxine 75 Mcg Tablet) 75 mcg PO QAM [facility] Last Admin: 08/14/23 05:20 Dose: 75 mcg Magnesium Hydroxide (Magnesium Hydroxide 30 Ml Udc) 30 ml PO DAILY PRN PRN Reason: CONSTIPATION Memantine (Memantine 5 Mg Tablet) 10 mg PO BID [facility] Last Admin: 08/14/23 07:58 Dose: 10 mg Metoprolol Succinate (Metoprolol Succinate Er (24 Hr) 25 Mg Tablet) 12.5 mg PO BID [facility] Last Admin: 08/14/23 08:07 Dose: 12.5 mg Morphine Sulfate (Morphine 4 Mg/Ml Sdv 1 Ml) 2 mg IVP Q4H PRN PRN Reason: SEVERE PAIN Last Admin: 08/13/23 20:13 Dose: 2 mg Naloxone HCl (Naloxone 0.4 Mg/Ml Sdv) 0.1 mg IVP Q2M PRN PRN Reason: OPIATERV Nitroglycerin (Nitroglycerin 0.4 Mg Sublingual Tablet) 0.4 mg SUBLINGUAL Q5M PRN PRN Reason: Chest Pain Last Admin: 08/09/23 16:05 Dose: 0.4 mg Ondansetron HCl (Ondansetron 2 Mg/Ml Sdv 2 Ml) 4 mg IVP Q8H PRN PRN Reason: vomiting, or N/V if npo Ondansetron HCl (Ondansetron 2 Mg/Ml Sdv 2 Ml) 4 mg IVP Q2M PRN PRN Reason: NAUSEA Pantoprazole Sodium (Pantoprazole Dr 40 Mg Tablet) 40 mg PO QAM [facility] Last Admin: 08/14/23 05:20 Dose: 40 mg Pramipexole Dihydrochloride (Pramipexole 0.25 Mg Tablet) 0.5 mg PO BEDTIME [facility] Last Admin: 08/13/23 20:11 Dose: 0.5 mg Temazepam (Temazepam 15 Mg Capsule) 15 mg PO BEDTIME PRN PRN Reason: INSOMNIA Trazodone HCl (Trazodone 100 Mg Tablet) 100 mg PO BEDTIME [facility] Last Admin: 08/13/23 20:11 Dose: 100 mg Vitals/I&O/Wt Last Vital Signs Temp 97.6 F 08/14/23 07:07 Pulse 70 08/14/23 07:07 Resp 19 H 08/14/23 07:07 BP 139/79 08/14/23 07:07 Pulse Ox 97 08/14/23 07:07 O2 Del Method Room Air 08/14/23 07:07 08/13/23 08/14/23 08/14/23 22:59 06:59 14:59 Intake Total 1400 / 1570 100 / 1670 Output Total 950 / 950 Balance 1400 / 1570 -850 / 720 Weight last 48 hrs Weight 173 lb 8 oz Weight 122 lb 1.6 oz Physical Exam Narrative: GENERAL: The patient is alert and oriented times three. Not in any acute distress. HEENT: No significant pallor, icterus or lymphadenopathy.Oral cavity: There are no mucous membrane lesions. NECK: Trachea appears to be central. No masses noted. No JVD or thyromegaly appreciated. RESPIRATORY: Chest is symmetrical. No intercostals muscle retraction or any accessory muscle activation. There is no chest wall tenderness. Breath sounds are heard bilaterally. No rales or rhonchi heard. No evidence of any consolidation. BREASTS: Deferred. HEART: The heart sounds are normal. No S3 or S4. No significant murmurs. No pericardial rub ABDOMEN: No vessel pulsations or distention. No tenderness. No organomegaly appreciated. Bowel sounds are normally heard. : Deferred. RECTAL: Deferred. LYMPHATIC: No lymphadenopathy noted in the neck. EXTREMITIES: No edema or cyanosis. No clubbing. MUSCULOSKELETAL: No acute joint deformities or swelling SKIN: There are no significant rashes or ecchymosis NEUROPSYCHIATRIC: The patient is alert and oriented x3. Appears to be in a good mood. No tremors or rigidity noted. Urinary Catheter Management: Chen: Cath Placed During This Visit: yes Reason for Continuing Indwelling Catheter: Acute Urinary Retention or Obstruction Urinary Catheter Date of Insertion: 08/13/23 Urinary Catheter Time of Insertion: 17:27 Data 08/14/23 03:34 08/14/23 03:34 Other Labs: Laboratory Last Values WBC 8.42 10^3/uL (3.29-11.43) 08/14/23 03:34 RBC 3.67 10^6/uL (3.85-5.65) L 08/14/23 03:34 Hgb 10.60 g/dL (11.27-16.99) L 08/14/23 03:34 Hct 34.1 % (36-47) L 08/14/23 03:34 MCV 92.9 fl (85-98) 08/14/23 03:34 MCH 28.9 pg (27-33) 08/14/23 03:34 MCHC 31.1 g/dL (30-55) 08/14/23 03:34 RDW 14.0 % (12.1-15.1) 08/14/23 03:34 Plt Count 149 10^3/cmm (157-399) L 08/14/23 03:34 MPV 10.8 fL (7.4-10.4) H 08/14/23 03:34 Neut % (Auto) 62.0 % 08/14/23 03:34 Lymph % (Auto) 26.2 % 08/14/23 03:34 [place] % (Auto) 8.3 % 08/14/23 03:34 Eos % (Auto) 2.7 % 08/14/23 03:34 Baso % (Auto) 0.4 % 08/14/23 03:34 Neut # (Auto) 5.22 10^3/uL (1.8-7.7) 08/14/23 03:34 Lymph # (Auto) 2.2 10^3/uL (0.8-4.8) 08/14/23 03:34 [place] # (Auto) 0.7 10^3/uL (0.2-0.9) 08/14/23 03:34 Eos # (Auto) 0.2 10^3/uL (0.0-0.8) 08/14/23 03:34 Baso # (Auto) 0.0 10^3/uL (0.0-0.1) 08/14/23 03:34 Nucleated RBC % (auto) 0 % 08/14/23 03:34 Nucleated RBCs # 0.0 /100WBC 08/14/23 03:34 ESR 17 mm/hr (0-15) H 08/08/23 14:27 APTT 31.5 SECONDS (23.9-36.7) 08/13/23 11:52 Sodium 143 mmol/L (136-145) 08/14/23 03:34 Potassium 4.2 mmol/L (3.5-5.1) 08/14/23 03:34 Chloride 106 mmol/L (98-107) 08/14/23 03:34 Carbon Dioxide 29 mmol/L (22-29) 08/14/23 03:34 Anion Gap 12.2 (5-19) 08/14/23 03:34 BUN 21 mg/dL (8-23) 08/14/23 03:34 Creatinine 0.8 mg/dL (0.5-0.9) 08/14/23 03:34 GFR Calculation Not Reportable 08/14/23 03:34 Glucose 82 mg/dL (65-115) 08/14/23 03:34 Estimat Average Glucose 117 08/08/23 14:27 Hemoglobin A1c 5.7 % (4.0-6.0) 08/08/23 14:27 Calculated Osmolality 298 mOsm/kg (285-295) H 08/14/23 03:34 Calcium 8.8 mg/dL (8.5-10.5) 08/14/23 03:34 Phosphorus 3.3 mg/dL (2.5-4.5) 08/14/23 03:34 Magnesium 2.0 mg/dL (1.7-2.3) 08/14/23 03:34 Total Bilirubin 0.4 mg/dL (0.15-1.2) 08/14/23 03:34 AST 33 U/L (0-32) H 08/14/23 03:34 ALT 31 U/L (0-33) 08/14/23 03:34 Alkaline Phosphatase 65 U/L (35-105) 08/14/23 03:34 Troponin T Baseline 22 ng/L (0-10) H 08/12/23 12:05 Troponin T 120 Minute 25.88 ng/L (0-10) H 08/12/23 14:05 Delta Troponin T 3.88 ABS# (0-10) 08/12/23 14:05 Troponin T Hi Sens 6Hr 26.01 ng/L (0-10) H 08/12/23 18:30 Troponin T Hi Sens 6Hr Delta 4.01 ng/L (0-12) 08/12/23 18:30 C-Reactive Protein 3.0 mg/L (0.0-4.9) 08/08/23 15:07 NT-Pro-B Natriuret Pep 4140 pg/mL (0-450) H 08/08/23 15:07 Total Protein 5.2 g/dL (6.6-8.7) L 08/14/23 03:34 Albumin 3.0 g/dL (3.5-5.2) L 08/14/23 03:34 Globulin 2.2 g/dL (1.3-4.6) 08/14/23 03:34 Triglycerides 84 mg/dL (0-150) 08/08/23 17:49 Cholesterol 101 mg/dL (0-200) 08/08/23 17:49 LDL Cholesterol, Calc 44 mg/dL (50-129) L 08/08/23 17:49 HDL Cholesterol 40 mg/dL (60-100) L 08/08/23 17:49 LDL/HDL Ratio 1.10 RATIO (0.00-3.22) 08/08/23 17:49 Cholesterol/HDL Ratio 2.53 mg/dL (0.0-4.40) 08/08/23 17:49 Procalcitonin 0.04 ng/mL (0-0.5) 08/08/23 15:07 TSH 0.96 uIU/mL (0.27-4.20) 08/08/23 17:49 Urine Color Colorless (Yellow) 08/08/23 21:42 Urine Appearance Clear (CLEAR) 08/08/23 21:42 Urine pH 8 (5-7) H 08/08/23 21:42 Ur Specific [place] 1.010 (1.005-1.030) 08/08/23 21:42 Urine Protein Neg (Negative) 08/08/23 21:42 Urine Glucose (UA) Norm (Normal) 08/08/23 21:42 Urine Ketones Negative (Negative) 08/08/23 21:42 Urine Blood 2+ (Negative) H 08/08/23 21:42 Urine Nitrate Negative (Negative) 08/08/23 21:42 Urine Bilirubin Neg (Negative) 08/08/23 21:42 Urine Urobilinogen Neg mg/dL (Negative) 08/08/23 21:42 Ur Leukocyte Esterase Trace (Negative) H 08/08/23 21:42 Urine RBC 0-4 /hpf (0-2) H 08/08/23 21:42 Urine WBC 5-10 /hpf (0-5) H 08/08/23 21:42 Ur Squamous Epith Cells 0-4 /hpf (0-5) H 08/08/23 21:42 Amorphous Sediment Not Reportable 08/08/23 21:42 Urine Bacteria 3+ /hpf (NONE) H 08/08/23 21:42 Urine Mucus Trace /hpf 08/08/23 21:42 Digoxin 1.6 ng/mL (0.6-1.2) H 08/08/23 15:07 A&P Assessment and plan (1) Atherosclerotic heart disease of [place] coronary artery with other forms of angina pectoris: Coronary angiogram findings as mentioned above (2) Benign hypertension: Currently normotensive. May continue on the current medications. (3) Dyslipidemia: Current medications may be continued. (4) Chronic atrial fibrillation: Patient may be placed back on the oral anticoagulation tomorrow. (5) Presence of permanent cardiac pacemaker: The pacemaker function patient be appropriate. May continue on the current management. Plan Possible discharge home today. Restart the Eliquis tomorrow. Appointment the [facility] in a week with nurse practitioner. Appointment with me in the office in 1 month. Attestations Medical Necessity Statement*: Possible discharge home today Coding Level of Care Code 10252 Diagnoses Atherosclerotic heart disease of [place] coronary artery with other forms of angina pectoris I25.118 Benign hypertension I10 Dyslipidemia E78.5 Chronic atrial fibrillation I48.20 Presence of permanent cardiac pacemaker Z95.0
--- NOTE | 2023-08-14 09:02 | PC.CHAP ---
Pastoral Care Encounter/Spiritual Assessment Type of Contact [] Declined pot firer visit [] Patient/Family/Request visit [] Outpatient visit [] Follow-up visit [] Physician referral [] Code/Alert [x] Routine visit [] Staff referral [] Actively dying [] Patient sleeping [] Family support [] [] Out of room [] Palliative care [] [] Receiving care in room [] Pre-surgical visit [] Trauma [] Long length of stay [] ICU visit [] Other: Relational/Emotional Strength [x] Patient feels connected with others/family/visitors/staff [] Distress [] Loneliness/isolation [] Abandonment Spirituality of Patient [x] Person of Leonor [] Attends Moravian of their Leonor [x] Believes in Prayer [] Reads Bible or Mormon materials [] There are Spiritual issues to be addressed Materials Recycler Interventions [x] Prayer [x] Active listening [] Non-anxious presence [x] Spiritual/emotional support [] Crisis/trauma care [] Spiritual counseling [] Bereavement support [] Provided bereavement packet [] Provided Bible/devotional materials [] Provided toy/stuffed animal, coloring book to patient or family member [] Provided Communion [] Anointing/Drake [] Salvation [x] Completed spiritual assessment [] Other: Impact on Illness or Injury [] Angry [] Fearful [] Anxious [] Often cries [] Exhaustion [] Unable to work [] Unable to attend scientologist [] Unable to walk/stand [] Unable to read [] Unable to drive [] Unable to eat/drink [] Unable to sleep [] Unable to be with family [] Patient intubated [] Other: Summary Time spent with patient 5 min
[2023-08-14] MEDS: apixaban 5 mg Tablet 2.5 MG PO (09:47)
--- NOTE | 2023-08-14 10:15 | PC.SOCIAL ---
IMM Updated Updated pt on IMM. No questions voiced. Provided pt a copy. Initialed, dated, & timed copy in chart.
--- NOTE | 2023-08-14 11:21 | PM.DCS ---
Discharge Providers Date of Admission: 08/08/23 17:23 Date of Discharge: August 14, 2023 Attending Provider at Admission: Bigg Benítez MD Attending Provider at Discharge: Bigg Benítez MD Diagnoses at Discharge Discharge Diagnosis (1) Atherosclerotic heart disease of [place] coronary artery with other forms of angina pectoris: Status: Acute (2) Benign hypertension: Status: Acute (3) Dyslipidemia: Status: Acute (4) Chronic atrial fibrillation: Status: Acute (5) Presence of permanent cardiac pacemaker: Status: Acute Reason for Visit Reason for Visit: CHEST PAIN Hospital Course Hospital Course [place] Groves is a 82 year old female with a past medical history of atrial fibrillation, CKD, hypertension, hyperlipidemia, hypothyroidism, who presents to [facility] due to complaints of chest pain and shortness of breath. Currently patient is alert oriented x 3, following all commands, on room air, currently chest pain-free. Patient tells me that for the last few weeks, she has been feeling increasingly short of breath, increasingly short of breath with exertion, no lower extremity edema as she wears compression stockings, she is her kidney doctor last saw her in April she has chronic kidney disease he told her that her kidney function was back to normal and she does not need to follow-up with the for that she used to swell in both her lower extremities, she tells me today she started to develop severe substernal chest pain like someone sitting on her chest the pain radiated down her left arm, with associated shortness of breath she never had chest pain before, no prior cardiovascular history no family history of CAD, she is on aspirin, and Eliquis at home, Patient presented to [facility] for chest pain, with positive troponins, with EKG changes of ST depressions in lateral leads, was monitored as inpatient on heparin drip, echocardiogram showed EF of 60 to 65%, stress test low probability of CAD, as patient continued to have persistent chest pain, underwent coronary angiography, no obstructive CAD, discharged with close follow-up cardiology as outpatient Patient was found to have an echogenic structure attached to the lead, on echocardiogram, blood cultures have been negative, afebrile, monitor Patient requires hospitalization for systolic CHF exacerbation, requiring IV diuresis, overall clinically improved, discharged on p.o. Lasix UTI, completed IV antibiotics as inpatient Physical Exam Const: COMMON NORMALS: no acute distress and patient oriented x3 Resp: COMMON NORMALS: normal respiratory effort, No retractions, No use of accessory muscles and clear to auscultation bilaterally AUSCULTATION: clear to auscultation bilaterally Cardio: COMMON NORMALS: regular rate, regular rhythm, S1 normal heart sound present and S2 normal heart sound present RATE: regular rate RHYTHM: regular rhythm HEART SOUNDS: S1 normal heart sound present and S2 normal heart sound present GI: COMMON NORMALS: Normal to inspection, nondistended, normoactive bowel sounds present and non-tender Extremity: COMMON NORMALS: no pedal edema Neuro: COMMON NORMALS: patient oriented x3 Psych: COMMON NORMALS: mental status grossly normal Urinary Catheter Management: Chen: Cath Placed During This Visit: yes Reason for Continuing Indwelling Catheter: Acute Urinary Retention or Obstruction Urinary Catheter Date of Insertion: 08/13/23 Urinary Catheter Time of Insertion: 17:27 Discharge Data Studies Completed and Pending Completed Studies During Hospitalization Category Date Time Status CT angio chest PE protcl [id number] Stat Cat Scan 08/08/23 15:52 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 echo complete* [id number] Stat Ultrasound 08/08/23 17:49 Completed Pending at discharge Category Date Time Status Blood Culture Stat Lab 08/09/23 13:39 Results Radiology Impressions Chest CTA 08/08/23 15:52 IMPRESSION: 1. Negative for pulmonary embolus. 2. Large right and small to moderate left pleural effusions. 3. Cardiomegaly. 4. Coronary artery atherosclerotic calcifications. 5. Anasarca. 6. Reflux of contrast in the intrahepatic veins suggestive of congestive heart failure. 7. Bilateral dependent atelectasis versus infiltrate. 8. Midthoracic spine vertebroplasty changes. 9. Left kidney hyperdense cyst. 10. Left kidney perinephric edema likely reflecting renal insufficiency. 11. Left-sided pacemaker. COMMENTS: Consistent with the [employer]'s Incidental Findings Committee white paper (J Am Nahum Radiol 2018): Any incidental renal lesion less than 1 cm or classified as too small to characterize, or any incidental cystic renal lesion characterized as simple-appearing, is likely benign. No follow-up imaging is recommended for these lesions per consensus recommendations based on imaging criteria. Laboratory Results WBC 8.42 10^3/uL (3.29-11.43) 08/14/23 03:34 RBC 3.67 10^6/uL (3.85-5.65) L 08/14/23 03:34 Hgb 10.60 g/dL (11.27-16.99) L 08/14/23 03:34 Hct 34.1 % (36-47) L 08/14/23 03:34 MCV 92.9 fl (85-98) 08/14/23 03:34 MCH 28.9 pg (27-33) 08/14/23 03:34 MCHC 31.1 g/dL (30-55) 08/14/23 03:34 RDW 14.0 % (12.1-15.1) 08/14/23 03:34 Plt Count 149 10^3/cmm (157-399) L 08/14/23 03:34 MPV 10.8 fL (7.4-10.4) H 08/14/23 03:34 Neut % (Auto) 62.0 % 08/14/23 03:34 Lymph % (Auto) 26.2 % 08/14/23 03:34 [place] % (Auto) 8.3 % 08/14/23 03:34 Eos % (Auto) 2.7 % 08/14/23 03:34 Baso % (Auto) 0.4 % 08/14/23 03:34 Neut # (Auto) 5.22 10^3/uL (1.8-7.7) 08/14/23 03:34 Lymph # (Auto) 2.2 10^3/uL (0.8-4.8) 08/14/23 03:34 [place] # (Auto) 0.7 10^3/uL (0.2-0.9) 08/14/23 03:34 Eos # (Auto) 0.2 10^3/uL (0.0-0.8) 08/14/23 03:34 Baso # (Auto) 0.0 10^3/uL (0.0-0.1) 08/14/23 03:34 Nucleated RBC % (auto) 0 % 08/14/23 03:34 Nucleated RBCs # 0.0 /100WBC 08/14/23 03:34 ESR 17 mm/hr (0-15) H 08/08/23 14:27 APTT 31.5 SECONDS (23.9-36.7) 08/13/23 11:52 Sodium 143 mmol/L (136-145) 08/14/23 03:34 Potassium 4.2 mmol/L (3.5-5.1) 08/14/23 03:34 Chloride 106 mmol/L (98-107) 08/14/23 03:34 Carbon Dioxide 29 mmol/L (22-29) 08/14/23 03:34 Anion Gap 12.2 (5-19) 08/14/23 03:34 BUN 21 mg/dL (8-23) 08/14/23 03:34 Creatinine 0.8 mg/dL (0.5-0.9) 08/14/23 03:34 GFR Calculation Not Reportable 08/14/23 03:34 Glucose 82 mg/dL (65-115) 08/14/23 03:34 Estimat Average Glucose 117 08/08/23 14:27 Hemoglobin A1c 5.7 % (4.0-6.0) 08/08/23 14:27 Calculated Osmolality 298 mOsm/kg (285-295) H 08/14/23 03:34 Calcium 8.8 mg/dL (8.5-10.5) 08/14/23 03:34 Phosphorus 3.3 mg/dL (2.5-4.5) 08/14/23 03:34 Magnesium 2.0 mg/dL (1.7-2.3) 08/14/23 03:34 Total Bilirubin 0.4 mg/dL (0.15-1.2) 08/14/23 03:34 AST 33 U/L (0-32) H 08/14/23 03:34 ALT 31 U/L (0-33) 08/14/23 03:34 Alkaline Phosphatase 65 U/L (35-105) 08/14/23 03:34 Troponin T Baseline 22 ng/L (0-10) H 08/12/23 12:05 Troponin T 120 Minute 25.88 ng/L (0-10) H 08/12/23 14:05 Delta Troponin T 3.88 ABS# (0-10) 08/12/23 14:05 Troponin T Hi Sens 6Hr 26.01 ng/L (0-10) H 08/12/23 18:30 Troponin T Hi Sens 6Hr Delta 4.01 ng/L (0-12) 08/12/23 18:30 C-Reactive Protein 3.0 mg/L (0.0-4.9) 08/08/23 15:07 NT-Pro-B Natriuret Pep 4140 pg/mL (0-450) H 08/08/23 15:07 Total Protein 5.2 g/dL (6.6-8.7) L 08/14/23 03:34 Albumin 3.0 g/dL (3.5-5.2) L 08/14/23 03:34 Globulin 2.2 g/dL (1.3-4.6) 08/14/23 03:34 Triglycerides 84 mg/dL (0-150) 08/08/23 17:49 Cholesterol 101 mg/dL (0-200) 08/08/23 17:49 LDL Cholesterol, Calc 44 mg/dL (50-129) L 08/08/23 17:49 HDL Cholesterol 40 mg/dL (60-100) L 08/08/23 17:49 LDL/HDL Ratio 1.10 RATIO (0.00-3.22) 08/08/23 17:49 Cholesterol/HDL Ratio 2.53 mg/dL (0.0-4.40) 08/08/23 17:49 Procalcitonin 0.04 ng/mL (0-0.5) 08/08/23 15:07 TSH 0.96 uIU/mL (0.27-4.20) 08/08/23 17:49 Urine Color Colorless (Yellow) 08/08/23 21:42 Urine Appearance Clear (CLEAR) 08/08/23 21:42 Urine pH 8 (5-7) H 08/08/23 21:42 Ur Specific [place] 1.010 (1.005-1.030) 08/08/23 21:42 Urine Protein Neg (Negative) 08/08/23 21:42 Urine Glucose (UA) Norm (Normal) 08/08/23 21:42 Urine Ketones Negative (Negative) 08/08/23 21:42 Urine Blood 2+ (Negative) H 08/08/23 21:42 Urine Nitrate Negative (Negative) 08/08/23 21:42 Urine Bilirubin Neg (Negative) 08/08/23 21:42 Urine Urobilinogen Neg mg/dL (Negative) 08/08/23 21:42 Ur Leukocyte Esterase Trace (Negative) H 08/08/23 21:42 Urine RBC 0-4 /hpf (0-2) H 08/08/23 21:42 Urine WBC 5-10 /hpf (0-5) H 08/08/23 21:42 Ur Squamous Epith Cells 0-4 /hpf (0-5) H 08/08/23 21:42 Amorphous Sediment Not Reportable 08/08/23 21:42 Urine Bacteria 3+ /hpf (NONE) H 08/08/23 21:42 Urine Mucus Trace /hpf 08/08/23 21:42 Digoxin 1.6 ng/mL (0.6-1.2) H 08/08/23 15:07 Vitals Last Vital Signs Temp 97.6 F 08/14/23 10:00 Pulse 70 08/14/23 10:41 Resp 21 H 08/14/23 10:41 BP 132/71 08/14/23 10:41 Pulse Ox 95 08/14/23 10:41 O2 Del Method Room Air 08/14/23 10:00 Discharge Plan Discharge Patient Disposition: Home Condition: Stable Prescriptions: Continued atorvastatin 20 mg tablet 20 mg PO BEDTIME levothyroxine 75 mcg tablet 75 mcg PO QAM trazodone 100 mg tablet 100 mg PO BEDTIME pantoprazole 40 mg tablet,delayed release (DR/EC) 40 mg PO QAM digoxin 125 mcg (0.125 mg) tablet 125 mcg PO QAM furosemide 20 mg tablet 20 mg PO QAM Rx Instructions: may take one extra tab if needed memantine 10 mg tablet 10 mg PO BID Eliquis 2.5 mg tablet 2.5 mg PO BID potassium chloride 20 mEq tablet extended release See Rx Instructions .ROUTE .COMPLEX Rx Instructions: TAKE 1 TABLET BY MOUTH EVERY DAY -IF TAKING EXTRA LASIX PILL TAKE ANOTHER KCL NEEDED DIRECTED Aspir-81 81 mg Tablet,Delayed Release (Dr/Ec) 243 mg PO .ONE TIME DOSE pramipexole 0.5 mg tablet 0.5 mg PO BEDTIME Nitrostat 0.4 mg Tablet, Sublingual 0.4 mg SUBLINGUAL Q5M PRN (Reason: Chest Pain) Rx Instructions: do not exceed 3 doses per episode hydrocodone-acetaminophen 10-325 mg tablet 1 tab PO DIRECTED PRN (Reason: Pain, Moderate) Rx Instructions: TAKE 1 TABLET BY MOUTH EVERY 6 TO 8 HOURS NEEDED FOR PAIN Changed metoprolol succinate 25 mg tablet extended release 24 hr 12.5 mg PO BID 30 Days Qty: 30 0RF Discontinued hydralazine 25 mg tablet 25 mg PO BID PRN (Reason: for sbp over 160) valsartan 160 mg tablet 160 mg PO QAM Discharge Orders: Discharge Order (Routine); Ordered 08/14/23 Ordered By: Bigg Benítez Referrals: Idalmis Figueroa FNP [Nurse Practitioner] - 08/28/23 11:00 am Lucien Rhodes MD [Physician] - 08/17/23 9:00 am Discharge Diet: Cardiac Discharge Activity: Resume usual activity Patient Instructions: Metoprolol (By mouth) (Lopressor, Toprol XL), Heart Failure (DC), Coronary Angioplasty (DC), CHF Stoplight, Opioid Safety, Post Angiogram Home Care Instructions Activity Restrictions/Additional Instructions: -if you have chest pain please come back to emergency room Discharge Attestations Time Spent in Discharge Care*: greater than 30 min Quality Metrics Clinical Quality Measures [ No reported AMI, CVA or VTE this stay] Coding Level of Care Code 47940 Total time (in minutes) for Discharge: 45 Diagnoses Atherosclerotic heart disease of [place] coronary artery with other forms of angina pectoris I25.118 Benign hypertension I10 Dyslipidemia E78.5 Chronic atrial fibrillation I48.20 Presence of permanent cardiac pacemaker Z95.0
== END 2023-08-14 13:40 | disposition home or self-care (01) | DRG 287 ==
LOC: ER 15:58 → CSU 19:47
PROVIDERS: Internal Medicine; Internal Medicine Cardiovascular Disease; Admitting Provider Family Medicine; Emergency Provider Family Medicine; Visit Provider Family Medicine
PROC: 4A023N7 Measurement of Cardiac Sampling and Pressure, Left Heart, Percutaneous Approach (ICD-10-PCS; principal; 2023-08-13 09:50)
DX: I25.118 Atherosclerotic heart disease of native coronary artery with other forms of angina pectoris (principal); I13.0 Hypertensive heart and chronic kidney disease with heart failure and stage 1 through stage 4 chronic kidney disease, or unspecified chronic kidney disease; I48.20 Chronic atrial fibrillation, unspecified; I50.22 Chronic systolic (congestive) heart failure; N39.0 Urinary tract infection, site not specified; K50.90 Crohn's disease, unspecified, without complications; N18.9 Chronic kidney disease, unspecified; E78.5 Hyperlipidemia, unspecified; Z95.0 Presence of cardiac pacemaker; E03.9 Hypothyroidism, unspecified; Z79.82 Long term (current) use of aspirin; Z79.01 Long term (current) use of anticoagulants
CPT/HCPCS: 36415; 51702; 71045; 71275; 78452; 80053; 80061; 80162; 81001; 83036; 83735; 83880; 84100; 84145; 84443; 84484; 85025; 85347; 85651; 85730; 86140; 87040; 87077; 87086; 87186; 90471; 90686; 90732; 93005; 93017; 93306; 93458; 96372; 96374; 96375; 96376; 97116; 97161; 97165; 99152; 99153; 99285; A9500; C1769; C1887; C1894; J0360; J0696; J1644; J1650; J1940; J2250; J2270; J2785; J3010; J7030; Q0163; Q9967

== ENCOUNTER → 2023-09-08 10:05 | Outpatient (BNVA) | payer MEDICARE, SELFPAY | PROVIDERS: PCP Family Medicine; Visit Provider Family Medicine | DX: R44.0 Auditory hallucinations (principal); N39.0 Urinary tract infection, site not specified | CPT/HCPCS: 81003; 87077; 87086; 87184 ==

== ENCOUNTER → 2023-09-14 14:38 | Outpatient (BNVA) | payer MEDICARE, SELFPAY | PROVIDERS: PCP Family Medicine; Visit Provider Nurse Practitioner Family | DX: I25.118 Atherosclerotic heart disease of native coronary artery with other forms of angina pectoris (principal); I48.20 Chronic atrial fibrillation, unspecified | CPT/HCPCS: 36415; 80048; 80162; 99214 ==

== ENCOUNTER 2023-10-20 11:12 | Outpatient (CLI) | payer MEDICARE, SELFPAY ==
[2023-10-20 14:40] LABS: Digoxin 0.6 ng/mL (0.6-1.2)
== END 2023-10-20 11:13 | disposition home or self-care (01) ==
LOC: LAB 11:12
PROVIDERS: PCP Family Medicine; Visit Provider Nurse Practitioner Family
DX: I10 Essential (primary) hypertension (principal); I25.118 Atherosclerotic heart disease of native coronary artery with other forms of angina pectoris; I50.20 Unspecified systolic (congestive) heart failure
CPT/HCPCS: 36415; 80162

== ENCOUNTER → 2024-01-05 11:00 | Outpatient (BNVA) | payer MEDICARE, SELFPAY | PROVIDERS: PCP Family Medicine; Referring Provider Family Medicine; Visit Provider Specialist | DX: G31.83 Neurocognitive disorder with Lewy bodies (principal); F02.B2 Dementia in other diseases classified elsewhere, moderate, with psychotic disturbance | CPT/HCPCS: 96116; 99204; 99205 ==

== ENCOUNTER → 2024-01-21 10:21 | Outpatient (BNVA) | payer MEDICARE, SELFPAY | PROVIDERS: PCP Family Medicine; Visit Provider Internal Medicine Cardiovascular Disease | DX: R06.02 Shortness of breath (principal); I25.118 Atherosclerotic heart disease of native coronary artery with other forms of angina pectoris; M79.89 Other specified soft tissue disorders; I10 Essential (primary) hypertension; E78.5 Hyperlipidemia, unspecified; I48.20 Chronic atrial fibrillation, unspecified; Z95.0 Presence of cardiac pacemaker | CPT/HCPCS: 36415; 80048; 83880; 99214 ==

== ENCOUNTER → 2024-02-18 11:40 | Outpatient (BNVA) | payer MEDICARE, SELFPAY | PROVIDERS: PCP Family Medicine; Visit Provider Family Medicine | DX: I48.20 Chronic atrial fibrillation, unspecified (principal); I50.20 Unspecified systolic (congestive) heart failure | CPT/HCPCS: 80048; 83880 ==

== ENCOUNTER → 2024-03-10 08:46 | Outpatient (BNVA) | payer MEDICARE, SELFPAY | PROVIDERS: PCP Family Medicine; Visit Provider Orthopaedic Surgery | DX: M54.50 Low back pain, unspecified (principal); G89.29 Other chronic pain | CPT/HCPCS: 72100; 99204 ==

== ENCOUNTER → 2024-03-15 15:17 | Outpatient (BNVA) | payer MEDICARE, SELFPAY | PROVIDERS: PCP Family Medicine; Visit Provider Internal Medicine Cardiovascular Disease | DX: I25.10 Atherosclerotic heart disease of native coronary artery without angina pectoris (principal); I48.20 Chronic atrial fibrillation, unspecified; M79.89 Other specified soft tissue disorders; R06.02 Shortness of breath; I10 Essential (primary) hypertension; E78.5 Hyperlipidemia, unspecified; Z95.0 Presence of cardiac pacemaker; Z79.01 Long term (current) use of anticoagulants | CPT/HCPCS: 80048; 83880; 99214 ==

== ENCOUNTER → 2024-03-27 15:40 | Outpatient (BNVA) | payer MEDICARE, SELFPAY | PROVIDERS: PCP Family Medicine; Visit Provider Emergency Medicine | DX: R39.9 Unspecified symptoms and signs involving the genitourinary system (principal) | CPT/HCPCS: 81000 ==

== ENCOUNTER 2024-03-31 12:10 | Outpatient (CLI) | payer MEDICARE, SELFPAY | END 2024-03-31 12:11 | disposition home or self-care (01) | LOC: LAB 12:12 | PROVIDERS: PCP Family Medicine; Visit Provider Family Medicine | DX: I48.20 Chronic atrial fibrillation, unspecified (principal) | CPT/HCPCS: 36415; 80162 ==

== ENCOUNTER 2024-04-08 09:23 | Outpatient (CLI) | payer MEDICARE, SELFPAY ==
[2024-04-08 10:21] LABS: Alanine Aminotransferase 24 U/L (0-33); Albumin Level 4.1 g/dL (3.5-5.2); Alkaline Phosphatase 104 U/L (35-105); Anion Gap 14.5 (5-19); Aspartate Amino Transferase 27 U/L (0-32); Blood Urea Nitrogen 50 mg/dL (8-23); Calcium 10.1 mg/dL (8.5-10.5); Carbon Dioxide 33 mmol/L (22-29); Chloride 103 mmol/L (98-107); Globulin 2.9 g/dL (1.3-4.6); Glucose 83 mg/dL (65-115); Osmolality Calculated 316 mOsm/kg (285-295); Potassium 3.5 mmol/L (3.5-5.1); Sodium 147 mmol/L (136-145); Total Bilirubin 0.4 mg/dL (0.15-1.2)
== END 2024-04-08 09:24 | disposition home or self-care (01) ==
LOC: LAB 09:24
PROVIDERS: PCP Family Medicine; Visit Provider Family Medicine
DX: R60.0 Localized edema (principal)
CPT/HCPCS: 36415; 80053

== ENCOUNTER → 2024-04-21 10:45 | Outpatient (BNVA) | payer MEDICARE, SELFPAY | PROVIDERS: PCP Family Medicine; Visit Provider Nurse Practitioner Family | DX: R06.02 Shortness of breath (principal); M79.89 Other specified soft tissue disorders; I50.22 Chronic systolic (congestive) heart failure; Z95.0 Presence of cardiac pacemaker; I48.20 Chronic atrial fibrillation, unspecified; I87.2 Venous insufficiency (chronic) (peripheral); N18.30 Chronic kidney disease, stage 3 unspecified; R22.43 Localized swelling, mass and lump, lower limb, bilateral | CPT/HCPCS: 99214 ==

== ENCOUNTER 2024-04-22 09:19 | Outpatient (CLI) | payer MEDICARE, SELFPAY ==
--- NOTE | 2024-04-22 09:22 | CT_ITS ---
WS: [id number] CT THORACIC MYELOGRAM HISTORY: M54.6 - Pain in thoracic spine TECHNIQUE: Contiguous 2.5 mm axial images are reviewed to thoracic spine. Images are reformatted in s agittal and coronal planes. All CT scans at [facility] use at least one of these dose optimiz ation techniques: automated exposure control; mA and/or kV adjustment per patient size (includes targ eted exams where dose is matched to clinical indication); or iterative reconstruction. DLP: 316.42 mGy.cm COMPARISON: None available. Marked increase in thoracic kyphosis. Severe anterior wedge shaped fracture at T8 with vertebroplasty . Bones are diffusely osteopenic. No additional fractures. Schmorl's node superior endplate of T10. M ild RIGHT lung curvature scoliosis thoracic spine. Cord size appears normal. Normal tapering of the c onus at T12-L1. T1-2: Shallow RIGHT paracentral disc protrusion. No stenosis. T6-7: Small LEFT paracentral disc protrusion effacing CSF but not contacting the cord. No high-grade central or foraminal stenosis. No large disc protrusions. Small to moderate layering RIGHT pleural effusion. Very tiny LEFT pleural effusion. Moderate atherosc lerotic plaque within the thoracic aorta. Dual-lead LEFT subclavian pacer. CT/CT thoracic spine w con [id number] IMPRESSION: 1. Marked increase in thoracic kyphosis. 2. Kyphosis is centered at the severe wedge-shaped compression fracture at T8 with prior vertebroplasty. 3. No high-grade central or foraminal stenosis. 4. Diffuse osteopenia. 5. Small to moderate RIGHT pleural effusion and very small LEFT pleural effusi on. Effusions were described on a prior CT of 08/08/2023. Both effusions have sl ightly decreased in size.
--- NOTE | 2024-04-22 09:22 | IR_ITS ---
WS: [id number] THORACIC AND LUMBAR MYELOGRAMs HISTORY: Chronic back pain. COMPARISON: None available. FLUOROSCOPY TIME: 3min [id number] # of spot films: 2 Procedure, risks and complications were explained to the patient. Risks including bleeding, infection , headaches, allergic reaction and seizures. Consent has been obtained. With the patient in prone position the skin over the lumbar region is cleansed with ChloraPrep and an esthetized with lidocaine. 22-gauge spinal needle is inserted into the thecal sac at the appropriate level determined by fluoroscopy. Omnipaque 240; 10 ml is injected slowly under fluoroscopy with no co mplications. Needle bevel is perpendicular to the longitudinal fibers of the dura. Stylet is reinsert ed prior to removal of the needle. Patient tolerated the procedure well. Patient will proceed to CT f or further evaluation. Patient is markedly kyphotic with increased lumbar lordosis. During the injection there is a small amount of contrast injected external to the subarachnoid space. Majority of the contrast is injected in the central canal. No complications. Patient tolerated the p rocedure very well. IR/IR myelogram spine thorac/lumb IMPRESSION: Uncomplicated thoracic and lumbar myelograms. Patient to proceed to CT.
--- NOTE | 2024-04-22 09:22 | CT_ITS ---
WS: [id number] CT MYELOGRAM LUMBAR SPINE HISTORY: M54.50 - Low back pain, unspecified TECHNIQUE: Contiguous 2.0 mm axial imaging performed from T12 through the mid sacral level. Bone and soft tissue windows reviewed. Sagittal and coronal reformats are submitted and reviewed. DLP: 607.[address] scans at [facility] use at least one of these dose optimization techniques: automated e xposure control; mA and/or kV adjustment per patient size (includes targeted exams where dose is matc hed to clinical indication); or iterative reconstruction. COMPARISON: None available. Post lumbar myelogram imaging performed in prone and supine imaging to best distend the thecal sac wi th contrast. Patient has a marked increase in lumbar lordosis. Marked increase in the lumbar lordosis. There is good distention of the thecal sac with contrast. The re is a small amount amount of air in the subarachnoid space injected during the contrast injection. Diffuse osteopenia. No fractures. T12-L1: Mild facet arthritis. No stenosis. L1-L2: Mild annular disc bulging encroaching upon the ventral thecal sac and subarticular recesses. M ild facet arthritis. A minimal disc encroachment upon the traversing L2 nerve roots. L2-L3: Mild annular disc bulging. Shallow small bilateral foraminal disc protrusions. Mild disc encro achment upon the subarticular recesses. L3-L4: Moderate annular disc bulging encroaching upon the ventral thecal sac mild ligamentum flavum a nd facet arthritis. Mild central, bilateral subarticular recess and foraminal stenosis. L4-L5: Diffuse mild annular disc bulging with ligamentum flavum and facet arthritis. Mild central, bi lateral subarticular recess and LEFT foraminal stenosis. Mild disc encroachment upon the traversing L 5 nerve roots. L5-S1: Mild annular disc bulging. Mild facet arthritis. No stenosis. Moderate atherosclerotic plaque within the abdominal aorta. No aneurysm. CT/CT lumbar spine w con [id number] IMPRESSION: 1. Moderate increase in lumbar lordosis. 2. No high-grade central, subarticular recess or foraminal stenosis. 3. L3-4: Mild central, bilateral subarticular recess and foraminal stenosis. 4. L4-5: Mild central, bilateral subarticular recess and LEFT foraminal stenos is. 5. Mild annular disc bulging encroaches into the subarticular recesses at L1-2 , L2-3, L3-4 and L4-5 contacting the traversing nerve roots. 6. Osteopenia.
[2024-04-22 10:25] LABS: Anion Gap 12.9 (5-19); Blood Urea Nitrogen 56 mg/dL (8-23); Calcium 10.1 mg/dL (8.5-10.5); Carbon Dioxide 32 mmol/L (22-29); Chloride 100 mmol/L (98-107); Glucose 96 mg/dL (65-115); Osmolality Calculated 307 mOsm/kg (285-295); Potassium 3.9 mmol/L (3.5-5.1); Sodium 141 mmol/L (136-145)
[2024-04-22] MEDS: iohexol 240 mg/mL 50 mL Btl 25 ML INTRATHECA (11:43)
== END 2024-04-22 09:20 | disposition home or self-care (01) ==
LOC: RAD 09:20
PROVIDERS: Absent Provider Internal Medicine Cardiovascular Disease; PCP Family Medicine; Referring Provider Nurse Practitioner Family; Visit Provider Orthopaedic Surgery
DX: S22.060A Wedge compression fracture of T7-T8 vertebra, initial encounter for closed fracture (principal); I50.20 Unspecified systolic (congestive) heart failure; M40.204 Unspecified kyphosis, thoracic region; M51.44 Schmorl's nodes, thoracic region; M51.24 Other intervertebral disc displacement, thoracic region; J90 Pleural effusion, not elsewhere classified; I70.0 Atherosclerosis of aorta; Z95.0 Presence of cardiac pacemaker; M85.80 Other specified disorders of bone density and structure, unspecified site; M40.56 Lordosis, unspecified, lumbar region; X58.XXXA Exposure to other specified factors, initial encounter
CPT/HCPCS: 62305; 72129; 72132; 80048; Q9966

== ENCOUNTER 2024-05-10 08:46 | Outpatient (CLI) | payer MEDICARE, SELFPAY ==
--- NOTE | 2024-05-10 09:30 | USCV_ITS ---
[place] Groves Age: 83 Gender: F : 1940 Exam Date: 05/10/2024 09:05 Ordering Phys: Idalmis Figueroa Technologist: [place] [facility] [place]: HISTORY: PROCEDURES: FINDINGS: Pulsatile flow in the common femoral and femoral veins bilaterally The veins were found to be easily compressible with spontaneous blood flow. No significant venous reflux CONCLUSIONS Features of high central venous pressure No evidence of DVT No significant venous reflux Dr Holland Courtney MD [facility] (Electronically Signed) Final Date: 15 May 2024 18:15 S
== END 2024-05-10 08:47 | disposition home or self-care (01) ==
LOC: RAD 08:46
PROVIDERS: PCP Family Medicine; Visit Provider Orthopaedic Surgery
DX: M79.89 Other specified soft tissue disorders (principal)
CPT/HCPCS: 93970

== ENCOUNTER → 2024-06-16 08:59 | Outpatient (BNVA) | payer MEDICARE, SELFPAY | PROVIDERS: PCP Family Medicine; Visit Provider Family Medicine | DX: N18.9 Chronic kidney disease, unspecified (principal); E03.9 Hypothyroidism, unspecified | CPT/HCPCS: 80048; 84439; 84443 ==

== ENCOUNTER → 2024-09-08 11:50 | Outpatient (BNVA) | payer MEDICARE, SELFPAY | PROVIDERS: PCP Family Medicine; Visit Provider Family Medicine | DX: E03.9 Hypothyroidism, unspecified (principal) | CPT/HCPCS: 84439; 84443 ==

== ENCOUNTER → 2024-09-20 14:08 | Outpatient (BNVA) | payer MEDICARE, SELFPAY | PROVIDERS: PCP Family Medicine; Visit Provider Internal Medicine Cardiovascular Disease | DX: I25.118 Atherosclerotic heart disease of native coronary artery with other forms of angina pectoris (principal); I12.9 Hypertensive chronic kidney disease with stage 1 through stage 4 chronic kidney disease, or unspecified chronic kidney disease; N18.9 Chronic kidney disease, unspecified; E78.5 Hyperlipidemia, unspecified; I48.20 Chronic atrial fibrillation, unspecified; Z79.01 Long term (current) use of anticoagulants; M79.89 Other specified soft tissue disorders; Z95.0 Presence of cardiac pacemaker | CPT/HCPCS: 99214 ==

== ENCOUNTER → 2024-10-04 09:48 | Outpatient (BNVA) | payer MEDICARE, SELFPAY | PROVIDERS: PCP Family Medicine; Visit Provider Family Medicine | DX: S92.351A Displaced fracture of fifth metatarsal bone, right foot, initial encounter for closed fracture (principal); X58.XXXA Exposure to other specified factors, initial encounter; R21 Rash and other nonspecific skin eruption | CPT/HCPCS: 73630 ==

== ENCOUNTER → 2024-10-17 12:35 | Outpatient (BNVA) | payer MEDICARE, SELFPAY | PROVIDERS: PCP Family Medicine; Visit Provider Podiatrist Foot & Ankle Surgery | DX: S92.351D Displaced fracture of fifth metatarsal bone, right foot, subsequent encounter for fracture with routine healing (principal); W22.8XXD Striking against or struck by other objects, subsequent encounter | CPT/HCPCS: 73630; 99204 ==

== ENCOUNTER 2024-10-23 01:54 | Emergency (ER) | payer MEDICARE, SELFPAY ==
[2024-10-23 02:01] VITALS: BP 186/117; PULSE 100; RESP 18; TEMP 36.6; O2SAT 100; BMI 22.1
--- NOTE | 2024-10-23 02:04 | XRR_ITS ---
PROCEDURE INFORMATION: Exam: XR Left Shoulder Exam date and time: 10/23/2024 2:33 AM Age: 83 years old Clinical indication: Injury or trauma; Blunt trauma (contusions or hematomas); Prior surgery; Surgery date: 6+ months; Surgery type: Pacer; EMS arrival for fall. Patient fell landing on left side of body. C/O left shoulder pain. TECHNIQUE: Imaging protocol: Radiologic exam of the left shoulder. Views: 2 or more views. COMPARISON: CR XR chest 1V portable [id number] 08/12/2023 11:11 AM FINDINGS: Bones/joints: No acute fracture or dislocation involving the left shoulder. Left-sided rib fractures are better seen on concurrent CT chest. Soft tissues: No large soft tissue abnormality. XR/XR shoulder LT min 2V* [id number] IMPRESSION: No acute fracture or dislocation involving the left shoulder.
--- NOTE | 2024-10-23 02:05 | CTR_ITS ---
PROCEDURE INFORMATION: Exam: CT Head Without Contrast Exam date and time: 10/23/2024 2:49 AM Age: 83 years old Clinical indication: Injury or trauma; Blunt trauma (contusions or hematomas); EMS arrival for fall at home. Patient fell landing on left side of body. Anticoagulated. TECHNIQUE: Imaging protocol: Computed tomography of the head without contrast. Radiation optimization: All CT scans at this facility use at least one of these dose optimization techniques: automated exposure control; mA and/or kV adjustment per patient size (includes targeted exams where dose is matched to clinical indication); or iterative reconstruction. COMPARISON: No relevant prior studies available. RADIATION DOSE METRICS: Total DLP (mGy-cm): 1040.55 FINDINGS: Brain: There is no mass effect, midline shift, acute hemorrhage, extra-axial fluid collection or acute lobar infarct. Patchy hemispheric white matter hypodensity likely represents chronic microvascular ischemic change. Cerebral ventricles: No ventriculomegaly. Paranasal sinuses: Retention cyst or polyp is partially imaged in the floor of the right maxillary antrum. Mastoid air cells: The patient is post right mastoidectomy. Orbital cavities: The patient is post bilateral cataract surgery. Bones: Unremarkable. No acute fracture. Soft tissues: Unremarkable. CT/CT head wo con* [id number] IMPRESSION: No acute intracranial process.
--- NOTE | 2024-10-23 02:20 | CTR_ITS ---
PROCEDURE INFORMATION: Exam: CT Chest Without Contrast; Diagnostic Exam date and time: 10/23/2024 2:51 AM Age: 83 years old Clinical indication: Injury or trauma; Blunt trauma (contusions or hematomas); Prior surgery; Surgery date: 6+ months; Surgery type: Pacer; EMS arrival for fall. Patient fell landing on left side of body. C/O left sided rib pain. ; Additional info: Left rib pain, fall TECHNIQUE: Imaging protocol: Diagnostic computed tomography of the chest without contrast. Radiation optimization: All CT scans at this facility use at least one of these dose optimization techniques: automated exposure control; mA and/or kV adjustment per patient size (includes targeted exams where dose is matched to clinical indication); or iterative reconstruction. COMPARISON: CT angio chest PE protcl [id number] 08/08/2023 4:06 PM RADIATION DOSE METRICS: Total DLP (mGy-cm): 718.76 FINDINGS: Tubes, catheters and devices: Electronic cardiac device implanted in the left chest. Thyroid: Thyroid is normal. Lungs: Minimal bilateral peripheral scarring. No focal consolidation. Pleural spaces: Trace right pleural fluid. Heart: Cardiomegaly. Lymph nodes: No distinct pathologically enlarged lymphadenopathy. Vasculature: Moderate scattered calcific atheromatous disease of the thoracic aorta. Bones/joints: Prominently exaggerated thoracic kyphosis. Stable appearance of severe compression deformity of the vertebral body of T8 status post kyphoplasty. Acute minimally displaced fracture of the manubrium. Chronic appearing fracture of the central sternum appears unchanged compared to 08/08/2023. Acute mildly displaced fractures of left ribs 7-10 posteriorly. No evidence of segmental rib fractures. No pneumothorax. Soft tissues: Visualized superficial soft tissues are within normal limits. CT/CT chest con [id number] IMPRESSION: 1. Acute minimally displaced fracture of the manubrium. 2. Acute mildly displaced fractures of left ribs 7-10 posteriorly. 3. Cardiomegaly.
--- NOTE | 2024-10-23 02:21 | W.ED.EXTPRO ---
HPI - Extremity Problem General: Chief complaint: Extremity Injury, Upper Stated complaint: FALL Time Seen by Provider: 10/23/24 02:05 History of Present Illness: Patient is a well-appearing 83-year-old female from home seen for fall and subsequent left rib pain and shoulder pain. She fell striking her left shoulder and states she has 8 of 10 pain at rest, 9 of 10 with deep inspiration. She also has some pain with motion of the left shoulder. She is able to move it. She denies striking her head but does take blood thinners. She has no nausea, vomiting, visual disturbance, lightheadedness, and has no other acute complaints. Related Data Home Medications ?Medication ?Instructions ?Recorded ?Confirmed atorvastatin 20 mg tablet 20 mg PO BEDTIME 08/08/23 10/17/24 digoxin 125 mcg (0.125 mg) tablet 125 mcg PO .every other day 09/17/23 10/17/24 Previous Rx's ?Medication ?Instructions ?Recorded metoprolol succinate 25 mg 12.5 mg (1/2 x 25 mg) PO BID 30 08/14/23 tablet,extended release 24 hr days #30 tabs nitroglycerin 0.4 mg sublingual 0.4 mg sublingual Q5M PRN Chest 09/14/23 tablet (Nitrostat) Pain #30 tabs hydralazine 25 mg tablet 25 mg PO BID for SBP above 160 #60 01/21/24 tabs memantine 10 mg tablet 10 mg PO BID #180 tabs 03/03/24 valsartan 160 mg tablet 160 mg PO DAILY #90 tabs 03/31/24 terbinafine HCl 1 % topical cream 1 applic topical BID 1 month #30 04/08/24 (Lamisil AT) grams galantamine 4 mg tablet See Rx Instructions .Route 05/04/24 .COMPLEX #180 tabs apixaban 2.5 mg tablet (Eliquis) 2.5 mg PO BID #90 tabs 05/10/24 ondansetron 4 mg disintegrating 4 mg PO Q8H PRN nausea and 06/16/24 tablet vomiting #60 tabs quetiapine 25 mg tablet (Seroquel) 25 mg PO .qhs #90 tabs 06/16/24 trazodone 50 mg tablet 50 mg PO BEDTIME #90 tabs 06/16/24 potassium chloride 20 mEq 40 meq (2 x 20 mEq) PO DAILY #120 07/13/24 tablet,extended release tabs torsemide 20 mg tablet See Rx Instructions PO QAM #270 07/14/24 tabs pantoprazole 40 mg tablet,delayed 40 mg PO QAM #90 tabs 08/08/24 release ropinirole 2 mg tablet 2 mg PO DAILY #30 tabs 09/08/24 levothyroxine 50 mcg tablet 50 mcg PO QAM #90 tabs 09/09/24 gabapentin 100 mg capsule 100 mg PO Q8H PRN pain #60 caps 10/02/24 valacyclovir 1 gram tablet 1,000 mg PO Q8H 10 days #30 tabs 10/02/24 fluconazole 150 mg tablet 150 mg PO Q3D 2 doses #2 tabs 10/04/24 sulfamethoxazole 800 1 tab PO BID #14 tabs 10/04/24 mg-trimethoprim 160 mg tablet (Bactrim DS) hydrocodone 5 mg-acetaminophen 325 1 tab PO BID PRN pain 30 days #60 10/13/24 mg tablet tabs CAM walker #1 ea 10/17/24 Allergies Allergy/AdvReac Type Severity Reaction Status Date / Time clonidine Allergy DROPS BP Verified 10/17/24 12:57 TO MUCH dexamethasone Allergy ADR-Vomitin Verified 10/17/24 12:57 g NSAIDS (Non-Steroidal Allergy Unknown Verified 10/17/24 12:57 Anti-Inflamma oxycodone Allergy Unknown Verified 10/17/24 12:57 prednisone Allergy ADR-Vomitin Verified 10/17/24 12:57 g PFSH ED PFSH: Medical History Lower extremity edema Epistaxis Crohn's disease Dementia Restless leg syndrome Hypothyroidism History of chronic kidney disease History of hyperlipidemia History of hypertension History of atrial fibrillation Surgical History History of hysterectomy Family History Brother Brain tumor Mother Brain aneurysm Father Lung cancer Social History Smoking and tobacco/nicotine status: tobacco/nicotine user, details unknown Alcohol intake: never Substance/Drug Use: never Physical Exam Const: COMMON NORMALS: no acute distress, patient oriented x3 and alert HENMT: COMMON NORMALS: normocephalic and atraumatic HEAD & SCALP: normocephalic and atraumatic Eye: COMMON NORMALS: Equal, round and reactive pupils present, EOMs intact bilaterally and no scleral icterus PUPIL: Yes Equal, round and reactive pupils present Chest: OTHER: Rib pain is reproducible with palpation of the left anterior ribs in the midclavicular line. Pain is worse with deep inspiration. No obvious deformity. Resp: COMMON NORMALS: normal respiratory effort and No retractions Cardio: COMMON NORMALS: regular rate, regular rhythm and No murmurs present (Cardio) RATE: regular rate RHYTHM: regular rhythm GI: COMMON NORMALS: Normal to inspection, nondistended, normoactive bowel sounds present, Soft to palpation and non-tender PALPATION: Yes Soft to palpation Extremity: OTHER: No obvious deformity of the left shoulder but she does have pain with both active and passive flexion beyond 30 degrees and beyond 30 degrees of abduction. Neuro: COMMON NORMALS: patient oriented x3 SENSORIUM/ORIENTATION: Yes alert Skin: COMMON NORMALS: no rashes or lesions noted GENERAL SKIN EXAM: no rashes or lesions noted Course Vital Signs: Vital signs: Vital Signs Temperature 98 F 10/23/24 02:01 Pulse Rate 87 10/23/24 05:04 Respiratory Rate 16 10/23/24 05:04 Blood Pressure 146/66 10/23/24 05:04 Pulse Oximetry 98 10/23/24 05:04 Oxygen Delivery Me thod Room Air 10/23/24 05:04 MDM - Extremity (Nontraumatic) Medical Decision Making In summary, patient is a 89-year-old female who sustained a ground-level fall at home causing pain in her left shoulder, left anterior rib cage, which is worse when she takes a deep breath or moves. CT scan shows multiple left-sided rib fractures and a manubrium fracture. X-ray of the left shoulder shows nothing acute. CT brain shows nothing acute. Oxygen saturation remained stable but pain is poorly controlled at this time and she would like to be admitted. I think this is reasonable. I contacted the hospitalist service who recommends transfer to a trauma facility as they are not certain if she is a good candidate for hospitalization at this facility. I spoke with receiving ED physician at [facility] who graciously agrees to accept the patient in transfer. She will be taken by ground in stable condition Lab Data 10/23/24 04:49 10/23/24 04:49 Radiology Impressions Shoulder X-Ray 10/23/24 02:04 IMPRESSION: No acute fracture or dislocation involving the left shoulder. Head CT 10/23/24 02:05 IMPRESSION: No acute intracranial process. Chest CT 10/23/24 02:20 IMPRESSION: 1. Acute minimally displaced fracture of the manubrium. 2. Acute mildly displaced fractures of left ribs 7-10 posteriorly. 3. Cardiomegaly. ADDENDUM: 10/23/24 0334 ADDENDUM: THIS REPORT CONTAINS FINDINGS THAT MAY BE CRITICAL TO PATIENT CARE. The findings were verbally communicated via telephone conference with Dr. Watson at 3:32 AM CDT on 10/23/2024. The findings were acknowledged and understood. Laboratory Results WBC 7.96 10^3/uL (3.29-11.43) 10/23/24 04:49 RBC 3.99 10^6/uL (3.85-5.65) 10/23/24 04:49 Hgb 10.80 g/dL (11.27-16.99) L 10/23/24 04:49 Hct 36.2 % (36-47) 10/23/24 04:49 MCV 90.7 fl (85-98) 10/23/24 04:49 MCH 27.1 pg (27-33) 10/23/24 04:49 MCHC 29.8 g/dL (30-55) L 10/23/24 04:49 RDW 16.0 % (12.1-15.1) H 10/23/24 04:49 Plt Count 203 10^3/cmm (157-399) 10/23/24 04:49 MPV 9.9 fL (7.4-10.4) 10/23/24 04:49 Neut % (Auto) 60.1 % 10/23/24 04:49 Lymph % (Auto) 27.3 % 10/23/24 04:49 Fannin % (Auto) 8.9 % 10/23/24 04:49 Eos % (Auto) 2.8 % 10/23/24 04:49 Baso % (Auto) 0.6 % 10/23/24 04:49 Neut # (Auto) 4.79 10^3/uL (1.8-7.7) 10/23/24 04:49 Lymph # (Auto) 2.2 10^3/uL (0.8-4.8) 10/23/24 04:49 Fannin # (Auto) 0.7 10^3/uL (0.2-0.9) 10/23/24 04:49 Eos # (Auto) 0.2 10^3/uL (0.0-0.8) 10/23/24 04:49 Baso # (Auto) 0.1 10^3/uL (0.0-0.1) 10/23/24 04:49 Nucleated RBC % (auto) 0 % 10/23/24 04:49 Nucleated RBCs # 0.0 /100WBC 10/23/24 04:49 Sodium 141 mmol/L (136-145) 10/23/24 04:49 Potassium 3.8 mmol/L (3.5-5.1) 10/23/24 04:49 Chloride 102 mmol/L (98-107) 10/23/24 04:49 Carbon Dioxide 27 mmol/L (22-29) 10/23/24 04:49 Anion Gap 15.8 (5-19) 10/23/24 04:49 BUN 43 mg/dL (8-23) H 10/23/24 04:49 Creatinine 1.5 mg/dL (0.5-0.9) H 10/23/24 04:49 GFR Calculation Not Reportable 10/23/24 04:49 Glucose 84 mg/dL (65-115) 10/23/24 04:49 Calculated Osmolality 302 mOsm/kg (285-295) H 10/23/24 04:49 Calcium 9.8 mg/dL (8.5-10.5) 10/23/24 04:49 Total Bilirubin 0.6 mg/dL (0.15-1.2) 10/23/24 04:49 AST 30 U/L (0-32) 10/23/24 04:49 ALT 21 U/L (0-33) 10/23/24 04:49 Alkaline Phosphatase 140 U/L (35-105) H 10/23/24 04:49 Total Protein 7.5 g/dL (6.6-8.7) 10/23/24 04:49 Albumin 3.9 g/dL (3.5-5.2) 10/23/24 04:49 Globulin 3.6 g/dL (1.3-4.6) 10/23/24 04:49 All radiology interpretation(s) finalized by discharge Discharge Plan Discharge Patient Disposition: Xfer Short-Term Hosp Clinical Impression: Multiple fractures of ribs, Fracture of manubrium, Fall, Contusion of left shoulder, Intractable pain Condition: Stable Referrals: Lucien Rhodes MD [Primary Care Provider, [facility]] Discharge Diet: Advance as tolerated Discharge Activity: Increase activity as tolerated Print Language: Ethiopian Coding Level of Care Code ED Advanced Practice Psychiatric Nurse for Samuel Rivera
[2024-10-23] MEDS: morphine 4 mg/mL SDV 1 mL 8 MG IM (02:42)
[2024-10-23 04:59] LABS: Basophils # 0.1 10^3/uL (0.0-0.1); Basophils % 0.6 %; Eosinophils # 0.2 10^3/uL (0.0-0.8); Eosinophils % 2.8 %; Hematocrit 36.2 % (36-47); Lymphocytes # 2.2 10^3/uL (0.8-4.8); Lymphocytes % 27.3 %; Mean Corpuscular HGB Conc 29.8 g/dL (30-55); Mean Corpuscular Hemoglobin 27.1 pg (27-33); Mean Corpuscular Volume 90.7 fl (85-98); Mean Platelet Volume 9.9 fL (7.4-10.4); Monocytes # 0.7 10^3/uL (0.2-0.9); Monocytes % 8.9 %; Neutrophils # 4.79 10^3/uL (1.8-7.7); Neutrophils % 60.1 %; Nucleated Red Blood Cells % 0 %; Platelet Count 203 10^3/cmm (157-399); Red Blood Count 3.99 10^6/uL (3.85-5.65); White Blood Count 7.96 10^3/uL (3.29-11.43)
[2024-10-23] MEDS: HYDROmorphone 0.5 MG/0.5 ML INJ IVP (05:01)
[2024-10-23 05:04] VITALS: BP 146/66; PULSE 87; RESP 16; O2SAT 98
[2024-10-23 05:35] LABS: Alanine Aminotransferase 21 U/L (0-33); Albumin Level 3.9 g/dL (3.5-5.2); Alkaline Phosphatase 140 U/L (35-105); Anion Gap 15.8 (5-19); Aspartate Amino Transferase 30 U/L (0-32); Blood Urea Nitrogen 43 mg/dL (8-23); Calcium 9.8 mg/dL (8.5-10.5); Carbon Dioxide 27 mmol/L (22-29); Chloride 102 mmol/L (98-107); Creatinine Clr Calc Pharmacy 24.7807; Globulin 3.6 g/dL (1.3-4.6); Glucose 84 mg/dL (65-115); Osmolality Calculated 302 mOsm/kg (285-295); Potassium 3.8 mmol/L (3.5-5.1); Sodium 141 mmol/L (136-145); Total Bilirubin 0.6 mg/dL (0.15-1.2); Total Protein 7.5 g/dL (6.6-8.7)
[2024-10-23 06:20] VITALS: BP 110/63; PULSE 70; RESP 16; O2SAT 100
[2024-10-23 07:47] VITALS: BP 126/86; PULSE 74; O2SAT 95
== END 2024-10-23 08:11 | disposition short-term general hospital (02) ==
PROVIDERS: Emergency Provider Student in an Organized Health Care Education/Training Program; PCP Family Medicine
DX: S22.41XA Multiple fractures of ribs, right side, initial encounter for closed fracture (principal); S22.21XA Fracture of manubrium, initial encounter for closed fracture; S40.012A Contusion of left shoulder, initial encounter; R52 Pain, unspecified; E78.5 Hyperlipidemia, unspecified; I12.9 Hypertensive chronic kidney disease with stage 1 through stage 4 chronic kidney disease, or unspecified chronic kidney disease; N18.9 Chronic kidney disease, unspecified; W19.XXXA Unspecified fall, initial encounter
CPT/HCPCS: 70450; 71250; 73030; 80053; 85025; 96372; 96374; 99285; J1171; J2270

== ENCOUNTER 2024-12-01 12:33 | Outpatient (CLI) | payer MEDICARE, SELFPAY ==
--- NOTE | 2024-12-01 12:39 | XR_ITS ---
WS: [email or web address] XR chest 2V* [id number] REASON FOR EXAM: manubrium fracture FINDINGS: Cardiac device over the left chest with trans left subclavian vein leads to the right atrium and right ventricular apex. Mild tortuosity of the thoracic aorta. Mild cardiomegaly. Calcified granulomatous disease bilaterally. No acute pulmonary parenchymal abnormality. Vertebral plana of the T8 vertebral body with partial vertebroplasty. Significant dorsal kyphosis. Manubrial fracture with overlapping of the fracture fragments. XR/XR chest 2V* [id number] IMPRESSION: Findings as above.
--- NOTE | 2024-12-01 12:39 | XR_ITS ---
WS: [email or web address] XR ribs BI 3V* [id number] REASON FOR EXAM: multiple rib fractures FINDINGS: Old posterior lateral healed 7th through the 10th right rib fractures. Minimally displaced left posterior lateral seventh rib fracture of unknown chronicity. Healing left 10th anterior rib fracture. XR/XR ribs BI 3V* [id number] IMPRESSION: Bilateral rib fractures as above.
--- NOTE | 2024-12-01 12:39 | XR_ITS ---
WS: [email or web address] XR hand RT min 3V* [id number] REASON FOR EXAM: finger fracture FINDINGS: No acute fracture. No periosteal reaction. 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 Significant asymmetric narrowing with subchondral sclerosis and osteophytosis in the DIP and PIP joints of the fingers and thumb. Similar arthropathy in the MCP joint of the thumb. Similar much more severe arthropathic change in the carpal metacarpal joint of the thumb. Similar arthropathy in the XR/XR hand RT min 3V* [id number] IMPRESSION: Significant osteoarthritis of the right hand as above. No acute abnormality reginald ntified.
--- NOTE | 2024-12-01 12:48 | XR_ITS ---
WS: [email or web address] XR foot RT min 3V* [id number] REASON FOR EXAM: fracture FINDINGS: Healing oblique fracture of the distal third of the fifth metatarsal. Fracture fragments are in good apposition and alignment unchanged compared to 10/17/2024. Further interval healing since previous examination. The rest of the right foot is unchanged compared to the previous examination. XR/XR foot RT min 3V* [id number] IMPRESSION: Stable healing right foot fracture.
== END 2024-12-01 12:34 | disposition home or self-care (01) ==
PROVIDERS: PCP Family Medicine; Visit Provider Family Medicine
DX: S22.21XA Fracture of manubrium, initial encounter for closed fracture (principal); M19.041 Primary osteoarthritis, right hand; S92.501D Displaced unspecified fracture of right lesser toe(s), subsequent encounter for fracture with routine healing; S92.351D Displaced fracture of fifth metatarsal bone, right foot, subsequent encounter for fracture with routine healing; S22.32XD Fracture of one rib, left side, subsequent encounter for fracture with routine healing; S22.32XA Fracture of one rib, left side, initial encounter for closed fracture; D71 Functional disorders of polymorphonuclear neutrophils; X58.XXXA Exposure to other specified factors, initial encounter; Z87.81 Personal history of (healed) traumatic fracture; X58.XXXD Exposure to other specified factors, subsequent encounter
CPT/HCPCS: 71046; 71110; 73130; 73630

== ENCOUNTER → 2025-04-19 11:13 | Outpatient (BNVA) | payer MEDICARE, SELFPAY | PROVIDERS: PCP Family Medicine; Visit Provider Nurse Practitioner Family | DX: I25.118 Atherosclerotic heart disease of native coronary artery with other forms of angina pectoris (principal); I10 Essential (primary) hypertension; I48.20 Chronic atrial fibrillation, unspecified; Z95.0 Presence of cardiac pacemaker; F17.200 Nicotine dependence, unspecified, uncomplicated; Z79.01 Long term (current) use of anticoagulants | CPT/HCPCS: 99214 ==

== ENCOUNTER → 2025-05-01 13:57 | Outpatient (BNVA) | payer MEDICARE, SELFPAY | PROVIDERS: PCP Family Medicine; Visit Provider Internal Medicine Cardiovascular Disease | DX: I25.118 Atherosclerotic heart disease of native coronary artery with other forms of angina pectoris (principal); I10 Essential (primary) hypertension; E78.5 Hyperlipidemia, unspecified; I48.20 Chronic atrial fibrillation, unspecified; Z95.0 Presence of cardiac pacemaker; M79.89 Other specified soft tissue disorders; Z79.01 Long term (current) use of anticoagulants | CPT/HCPCS: 99214 ==